=== PATIENT | female | born 1985 | race American Indian/Alaskan Native ===

== ENCOUNTER 2018-03-05 15:56 | Inpatient (IN) | payer MEDICAID, OTHER ==
[2018-03-05] MEDS ORDERED: NACL 0.9% 1000 ML 1,000 ML IV ONE ×2 (20:52→20:59)
[2018-03-05] MEDS ORDERED: PROVENTIL IH ONE ×2 (20:52→23:16)
[2018-03-05] MEDS ORDERED: MOTRIN PO ONE (20:59)
[2018-03-05] MEDS ORDERED: ZOFRAN ODT PO ONE (20:59)
[2018-03-05] MEDS ORDERED: TYLENOL PO ONE (20:59)
--- NOTE | 2018-03-05 21:30 | Emergency Department Report ---
ED General Adult HPI - General Chief complaint: Upper Respiratory Infection Stated complaint: COUGHING/VOMITING Time Seen by Provider: 03/05/18 20:37 Source: patient Mode of arrival: Ambulatory Limitations: No Limitations - History of Present Illness Initial comments: 5 days of nonproductive cough. Afebrile. Having vomiting from her coughing fits. Afebrile. Nonsmoker. No sick contacts. H/o myasthenia gravis, last flared 3 years ago. This doesn't feel like her myasthenia. Has chest pain from coughing so much. - Related Data Allergies Allergy/AdvReac Type Severity Reaction Status Date / Time magnesium Allergy Unknown Verified 03/05/18 16:16 ED Review of Systems ROS: Stated complaint: COUGHING/VOMITING Other details as noted in HPI Comment: All other systems reviewed and negative ENT: denies: throat pain, congestion Respiratory: cough, SOB at rest ED Past Medical Hx - Past Medical History Previous Medical History?: Yes Additional medical history: mystenia gravis - Surgical History Past Surgical History?: Yes Additional Surgical History: thymus gland removal - Social History Smoking Status: Never Smoker ED Physical Exam - General Limitations: No Limitations General appearance: alert, in no apparent distress - Head Head exam: Present: atraumatic, normocephalic - Eye Eye exam: Present: normal appearance - ENT ENT exam: Present: mucous membranes moist - Neck Neck exam: Present: normal inspection - Respiratory Respiratory exam: Present: decreased breath sounds (on the left). Absent: respiratory distress, wheezes, rales, rhonchi - Cardiovascular Cardiovascular Exam: Present: regular rate, normal rhythm, tachycardia. Absent : systolic murmur, diastolic murmur, rubs, gallop - GI/Abdominal GI/Abdominal exam: Present: soft, normal bowel sounds. Absent: distended, tenderness, guarding, rebound - Extremities Exam Extremities exam: Present: normal inspection - Back Exam Back exam: Present: normal inspection - Neurological Exam Neurological exam: Present: alert, oriented X3 - Psychiatric Psychiatric exam: Present: normal affect, normal mood - Skin Skin exam: Present: warm, dry, intact, normal color. Absent: rash ED Course Vital Signs 03/05/18 03/05/18 03/05/18 16:10 20:35 21:04 Temperature 98.1 F Pulse Rate 135 H Pulse Rate [ Bilateral Throughout] Respiratory 16 Rate Respiratory Rate [Bilateral Throughout] Blood Pressure 116/76 103/65 104/75 O2 Sat by Pulse 100 100 100 Oximetry 03/05/18 03/05/18 03/05/18 21:05 21:30 21:44 Temperature Pulse Rate Pulse Rate [ Bilateral Throughout] Respiratory 18 Rate Respiratory Rate [Bilateral Throughout] Blood Pressure 110/82 112/77 O2 Sat by Pulse 100 99 100 Oximetry 03/05/18 03/05/18 03/05/18 21:50 22:00 22:35 Temperature Pulse Rate Pulse Rate [ Bilateral Throughout] Respiratory 18 Rate Respiratory Rate [Bilateral Throughout] Blood Pressure 111/74 111/74 O2 Sat by Pulse 100 100 Oximetry 03/05/18 03/05/18 03/05/18 22:40 22:44 22:50 Temperature Pulse Rate 119 H 118 H 128 H Pulse Rate [ Bilateral Throughout] Respiratory 23 27 H 20 Rate Respiratory Rate [Bilateral Throughout] Blood Pressure 110/79 112/77 106/67 O2 Sat by Pulse 100 99 100 Oximetry 03/05/18 03/05/18 03/05/18 23:00 23:10 23:14 Temperature Pulse Rate 119 H 118 H Pulse Rate [ Bilateral Throughout] Respiratory 18 18 18 Rate Respiratory Rate [Bilateral Throughout] Blood Pressure 114/80 114/80 O2 Sat by Pulse 100 100 Oximetry 03/05/18 03/05/18 03/05/18 23:20 23:24 23:30 Temperature Pulse Rate 116 H 120 H Pulse Rate [ 115 H Bilateral Throughout] Respiratory 19 20 Rate Respiratory 18 Rate [Bilateral Throughout] Blood Pressure 114/80 124/83 O2 Sat by Pulse 100 95 Oximetry 03/05/18 03/05/18 03/06/18 23:35 23:40 00:14 Temperature Pulse Rate 126 H Pulse Rate [ Bilateral Throughout] Respiratory 18 19 18 Rate Respiratory Rate [Bilateral Throughout] Blood Pressure 124/83 O2 Sat by Pulse 100 Oximetry 03/06/18 03/06/18 03/06/18 01:16 01:20 01:30 Temperature Pulse Rate 118 H 109 H Pulse Rate [ Bilateral Throughout] Respiratory 29 H 26 H Rate Respiratory Rate [Bilateral Throughout] Blood Pressure 124/83 124/83 124/83 O2 Sat by Pulse 99 99 98 Oximetry 03/06/18 03/06/18 03/06/18 01:40 01:50 02:00 Temperature Pulse Rate 114 H 112 H 116 H Pulse Rate [ Bilateral Throughout] Respiratory 17 22 21 Rate Respiratory Rate [Bilateral Throughout] Blood Pressure 124/83 124/83 124/83 O2 Sat by Pulse 100 100 100 Oximetry 03/06/18 03/06/18 03/06/18 02:10 02:20 02:40 Temperature Pulse Rate 114 H 110 H 113 H Pulse Rate [ Bilateral Throughout] Respiratory 27 H 15 22 Rate Respiratory Rate [Bilateral Throughout] Blood Pressure 124/83 124/83 124/83 O2 Sat by Pulse 99 100 100 Oximetry 03/06/18 03/06/18 03/06/18 02:50 03:00 03:10 Temperature Pulse Rate 105 H 109 H 105 H Pulse Rate [ Bilateral Throughout] Respiratory 24 15 24 Rate Respiratory Rate [Bilateral Throughout] Blood Pressure 115/81 117/82 117/82 O2 Sat by Pulse 100 100 100 Oximetry 03/06/18 03/06/18 03/06/18 03:20 03:30 03:40 Temperature Pulse Rate 106 H 105 H 104 H Pulse Rate [ Bilateral Throughout] Respiratory 22 23 22 Rate Respiratory Rate [Bilateral Throughout] Blood Pressure 117/82 112/83 116/79 O2 Sat by Pulse 100 100 Oximetry 03/06/18 03/06/18 03/06/18 03:50 04:00 04:05 Temperature 97.6 F 97.5 F L Pulse Rate 102 H 99 H Pulse Rate [ Bilateral Throughout] Respiratory 25 H 20 Rate Respiratory Rate [Bilateral Throughout] Blood Pressure 110/79 110/79 O2 Sat by Pulse 100 100 Oximetry 03/06/18 03/06/18 03/06/18 04:10 04:20 04:35 Temperature 97.5 F L Pulse Rate 100 H 102 H Pulse Rate [ Bilateral Throughout] Respiratory 19 16 Rate Respiratory Rate [Bilateral Throughout] Blood Pressure 110/79 112/84 O2 Sat by Pulse 98 98 Oximetry 03/06/18 05:05 Temperature 97.8 F Pulse Rate Pulse Rate [ Bilateral Throughout] Respiratory Rate Respiratory Rate [Bilateral Throughout] Blood Pressure O2 Sat by Pulse Oximetry - Reevaluation(s) Reevaluation #1: Minimal improvement with breathing treatment. CT C/A/P is concerning for malignancy with pleural effusion and compression atelectasis. Pt will be admitted for further management and work up. 03/06/18 05:51 ED Medical Decision Making - Lab Data Result diagrams: 03/06/18 03:20 03/06/18 03:20 - EKG Data -: EKG Interpreted by Me EKG shows normal: sinus rhythm, axis, intervals, QRS complexes, ST-T waves Rate: tachycardia - EKG Data Interpretation: no acute changes - Radiology Data Radiology results: image reviewed - Medical Decision Making 32 yo female with pmhx of MG, not currently on meds that p/w cough. VS significant for tachycardia of 135. Pt is in no respiratory distress. Normal O2 sat. Diminished breath sounds on the left. CXR shows left pleural effusion w/ ? PTX. Will obtain labs, CT chest. IVF have been started. Pt has been given a breathing treatment to assist with her cough. - Differential Diagnosis copd, asthma, pna, uri, bronchitits, ptx, pe, MG flare Critical care attestation.: If time is entered above; I have spent that time in minutes in the direct care of this critically ill patient, excluding procedure time. ED Disposition Clinical Impression: Leukopenia, Anemia, Abdominal mass Disposition: - OP ADMIT IP TO THIS HOSP Is pt being admited?: Yes Does the pt Need Aspirin: No Condition: Stable
[2018-03-05 21:41] LABS: Hemoglobin 6.2 gm/dl (10.1-14.3); Mean Corpuscular HGB Conc 29 % (30-34); Platelet Count 298 K/mm3 (140-440); Red Cell Distribution Width 19.6 % (13.2-15.2)
[2018-03-05 21:43] LABS: Mean Corpuscular Hemoglobin 19 pg (28-32); Mean Corpuscular Volume 64 fl (79-97)
[2018-03-05 21:58] LABS: Alanine Aminotransferase 25 units/L (7-56); Albumin 3.4 g/dL (3.9-5); BUN/Creatinine Ratio 20; Blood Urea Nitrogen 10 mg/dL (7-17); Calcium 8.8 mg/dL (8.4-10.2); Hemolysis Index 0
[2018-03-05 22:21] LABS: Basophils % (Manual) 0 % (0.0-1.8); Total Cells Counted 100
[2018-03-05 22:22] LABS: Large Platelets Few; Platelet Estimate Consistent w Auto
[2018-03-05 22:24] LABS: Anisocytosis 1+; Giant Platelets Rare; Poikilocytosis 1+
[2018-03-05 22:25] LABS: Hypochromasia 2+
--- NOTE | 2018-03-05 23:08 | Cat Scan Report ---
FINAL REPORT PROCEDURE: CT CHEST W CON TECHNIQUE: Computerized axial tomography of the chest was performed during the IV injection of iodinated nonionic contrast. HISTORY: new left pleural effusion COMPARISON: No prior studies are available for comparison. TECHNICAL QUALITY: Satisfactory. FINDINGS: Heart and pericardium: There is no pericardial effusion or thickening. Thoracic aorta: No aneurysm or dissection. Pulmonary vasculature: Limited evaluation of distal branches. Central branches are patent, with no filling defects seen. Lymph nodes: There is subcarinal soft tissue attenuation, compatible with adenopathy, measuring up to 18 millimeters. Lungs: There is patchy left lung base atelectasis or infiltrate abutting large left pleural effusion. There is tree-in-bud type infiltrate in the right upper lobe. Pleural space: There is a large layering left pleural effusion. Musculoskeletal structures: There has been prior median sternotomy.. Upper abdominal structures: There is a large heterogeneously enhancing mass in the left upper quadrant, elevating the left hemidiaphragm, which is not fully imaged on this exam. The origin of the mass is uncertain, possibly related to an enlarged spleen or other mass. Recommend evaluation with CT abdomen pelvis. There are numerous subcentimeter low-density nodules throughout the liver are as well, which could be related to metastatic disease process. IMPRESSION: Large heterogeneously enhancing mass in the left upper quadrant of the abdomen, not fully imaged; this could be related to an enlarged spleen or other mass. There are also numerous small subcentimeter hepatic nodules, which could be metastatic. Recommend further evaluation with CT abdomen pelvis. Large layering left pleural effusion. There is adjacent left lung base atelectasis or infiltrate. Findings discussed by telephone with Dr. Wheeler at 9:50 p.m. central standard time on 03/05/2018.
--- NOTE | 2018-03-05 23:16 | XRay Report ---
FINAL REPORT PROCEDURE: XR CHEST ROUTINE 2V TECHNIQUE: PA and lateral chest radiographs were obtained. CPT 37970 HISTORY: chest pain COMPARISON: No prior studies are available for comparison. FINDINGS: Heart: Normal. Mediastinum/Vessels: Normal. Lungs/Pleural space: There is an infiltrate/atelectasis and effusion in the left lower lung.. Bony thorax: No acute osseous abnormality. Other: IMPRESSION: There is moderate infiltrate/atelectasis with effusion in the left lower lung..
--- NOTE | 2018-03-06 00:37 | Cat Scan Report ---
FINAL REPORT PROCEDURE: CT ABDOMEN PELVIS W CON TECHNIQUE: Computerized axial tomography of the abdomen and pelvis was performed after the IV injection of iodinated nonionic contrast. HISTORY: abnormal spleen on ct chest COMPARISON: No prior studies are available for comparison. FINDINGS: Visualized lower thorax: No significant abnormality. Liver: Normal size and attenuation. Spleen: There is splenomegaly with diffuse enlargement of the spleen. The differential is extensive including infectious etiologies is well as lymphoma and leukemia.. Gallbladder and biliary system: Normal. Pancreas: Normal. Adrenals: Normal. Kidneys: Normal. GI tract: No obstruction is seen. No ileus or enteritis. The cecum, appendix and colon are normal. Moderate fecal debris in the colon is noted.. Lymph nodes and mesentery: Normal. Vasculature: Normal. Bladder: Normal. Reproductive organs: Normal. Peritoneum: No free fluid. Musculoskeletal structures: No significant abnormality. Other: None. IMPRESSION: There is diffuse enlargement of the spleen. The differential is extensive and includes benign and malignant etiologies including infectious etiologies as well as lymphoma and leukemia.
[2018-03-06] MEDS ORDERED: ROBITUSSIN AC PO ONE (01:52)
[2018-03-06] MEDS ORDERED: NACL 0.9% 1000 ML 1,000 ML IV ONE (01:52)
[2018-03-06] MEDS ORDERED: SODIUM CHLORIDE FLUSH SYRINGE 10 ML IV PRN (02:05)
[2018-03-06] MEDS ORDERED: NACL 0.9% 500 ML 500 ML IV ONE (02:10)
[2018-03-06] MEDS ORDERED: VANCOMYCIN 1,250 MG in NACL 0.9% 250ML 250 ML IV ONE (02:15)
--- NOTE | 2018-03-06 02:21 | History and Physical Report ---
History of Present Illness Date of examination: 03/06/18 History of present illness: 32-year-old woman with a history of myasthenia gravis, no follow-up in the last 4 years comes emergency room with complaints of dry cough 1 week. Also complaining of low back pain on the left e and abdominal pain which he described as a dull sensation, constant, intensity 5 return, no radiation, she cannot identify exacerbating or relieving factors. Complains of nausea and vomiting yesterday. Complains of shortness of breath, feeling dizzy and night sweats, no fever or chills, weight loss, sick contacts. No melena, bloody stool , was transfused blood and 2002 after thymus removal Review of systems Constitutional: no weight loss, chills, fever Ears, eyes, nose, mouth and throat: no nasal congestion, no nasal discharge, no sinus pressure, no vision change, no red eye. Neck: No neck pain or rigidity. Cardiovascular: no chest pain, palpitations Respiratory: no cough, shortness of breath Gastrointestinal: no hematochezia Genitourinary : no frequency , no hematuria Musculoskeletal: no joint swelling or muscle ache Integumentary: no rash, no pruritis Neurological: no parathesias, no numbness, no focal weakness Endocrine: no cold or heat intolerance, no polyuria or polydipsia Hematologic/Lymphatic: no easy bruising, no easy bleeding, no gland swelling Allergic/Immunologic: no urticaria, no angioedema. PAST MEDICAL HISTORY: myasthenia gravis PAST SURGICAL HISTORY: Thymus removal SOCIAL HISTORY: No alcohol, no drugs, tobacco FAMILY HISTORY: Hypertension Medications and Allergies Allergies Allergy/AdvReac Type Severity Reaction Status Date / Time magnesium Allergy Unknown Verified 03/05/18 16:16 Home Medications Medication Instructions Recorded Confirmed Last Taken Type No Known Home Medications [No 03/06/18 03/06/18 Unknown History Reported Home Medications] Active Meds: Active Medications Acetaminophen (Tylenol) 650 mg PO Q4H PRN PRN Reason: Pain MILD(1-3)/Fever >100.5/HERBERT Sodium Chloride (Nacl 0.9% 1000 Ml) 1,000 mls @ 999 mls/hr IV BOLUS ONE Stop: 03/06/18 02:52 Piperacillin Sod/Tazobactam Sod (Zosyn/Ns 4.5gm/100ml) 4.5 gm in 100 mls @ 200 mls/hr IV Q8HR THAI; Protocol Vancomycin HCl 1,250 mg/ (Sodium Chloride) 275 mls @ 166.667 mls/hr IV ONCE ONE Stop: 03/06/18 03:53 Ondansetron HCl (Zofran) 4 mg IV Q4H PRN PRN Reason: Nausea And Vomiting Oxycodone/Acetaminophen (Percocet 5/325) 1 tab PO Q6H PRN PRN Reason: Pain, Moderate (4-6) Sodium Chloride (Sodium Chloride Flush Syringe 10 Ml) 10 ml IV BID THAI Sodium Chloride (Sodium Chloride Flush Syringe 10 Ml) 10 ml IV PRN PRN PRN Reason: LINE FLUSH Vancomycin HCl (Vancomycin Pharmacy To Dose) 1 each IV PKCONSULT THAI Exam - Physical Exam Narrative exam: Gen. appearance: Patient lying in bed, no apparent distress HEENT: Normocephalic, atraumatic, pupils equally round and reactive to light, extraocular movement intact, and no sclericterus,. No JVD or thyromegaly or nodule,neck supple, no carotid bruit ,mucous membranes moist, no exudate or erythema Heart: S1, S2, regular rate and rhythm Lungs: Decrease breath sounds at bases bilaterally, breathing comfortable Abdomen: Positive bowel sounds, non-tender, splenomegaly ,nondistended, no organomegaly Extremity:no edema cyanosis, clubbing Skin: no rash, dry, warm Neuro: Oriented 3, cranial nerves II-12 intact, speech is fluent, motor and sensory intact Rectal: heme negative, brown stool - Constitutional Vitals: Temp Pulse Resp BP Pulse Ox 98.1 F 115 H 18 112/77 99 03/05/18 16:10 03/05/18 23:24 03/05/18 23:24 03/05/18 22:44 03/05/18 22:44 Results - Labs CBC & Chem 7: 03/14/18 09:02 03/12/18 06:28 Labs: Abnormal lab results 03/05/18 03/05/18 03/05/18 Range/Units 21:31 21:31 22:31 WBC 1.9 L* (4.5-11.0) K/mm3 RBC 3.30 L (3.65-5.03) M/mm3 Hgb 6.2 L (10.1-14.3) gm/dl Hct 21.0 L (30.3-42.9) % MCV 64 L (79-97) fl MCH 19 L (28-32) pg MCHC 29 L (30-34) % RDW 19.6 H (13.2-15.2) % Seg Neuts % (Manual) 74.0 H (40.0-70.0) % Seg Neutrophils # Man 1.4 L (1.8-7.7) K/mm3 Lymphocytes # (Manual) 0.4 L (1.2-5.4) K/mm3 Sodium 133 L (137-145) mmol/L Chloride 96.2 L (98-107) mmol/L Creatinine 0.5 L (0.7-1.2) mg/dL Glucose 108 H (65-100) mg/dL AST 54 H (5-40) units/L Alkaline Phosphatase 396 H (35-129) units/L Albumin 3.4 L (3.9-5) g/dL Crossmatch See Detail - Imaging and Cardiology CT scan - abdomen: report reviewed CT scan - chest: report reviewed CT scan - pelvis: report reviewed Assessment and Plan Assessment Splenomegaly with liver nodules most likely lymphoma Anemia/leukopenia secondary to malignant process Large pleural effusion Pneumonia Myasthenia gravis Plan Admit to medicine Start IV Zosyn, vancomycin, follow cultures Transfuse blood, check iron profile, LDH, uric acid consult oncology DVT prophylaxis
[2018-03-06] MEDS ORDERED: VANCOMYCIN/NS 1 GM/250 ML 1 GM/250 ML BAG IV SCH (03:00)
[2018-03-06] MEDS ORDERED: VANCOMYCIN PHARMACY TO DOSE IV SCH (03:00)
[2018-03-06 03:48] LABS: Mean Corpuscular HGB Conc 27 % (30-34); Platelet Count 262 K/mm3 (140-440); Red Blood Count 3.08 M/mm3 (3.65-5.03); Red Cell Distribution Width 19.8 % (13.2-15.2)
[2018-03-06 03:59] LABS: Hematocrit 20.5 % (30.3-42.9); Mean Corpuscular Hemoglobin 18 pg (28-32); Mean Corpuscular Volume 66 fl (79-97)
[2018-03-06 04:01] LABS: Hemoglobin 5.5 gm/dl (10.1-14.3)
[2018-03-06 04:09] LABS: BUN/Creatinine Ratio 14; Blood Urea Nitrogen 10 mg/dL (7-17); Calcium 7.7 mg/dL (8.4-10.2); Hemolysis Index 0
[2018-03-06 05:44] LABS: Anisocytosis 1+; Band Neutrophils # (Manual) 0.1 K/mm3; Basophils % (Manual) 0 % (0.0-1.8); Hypochromasia 3+; Total Cells Counted 100
[2018-03-06 05:45] LABS: Large Platelets Few; Ovalocytes 1+; Poikilocytosis 1+
[2018-03-06] MEDS: ZOSYN/NS 4.5GM/100ML 4.5 GM/100 ML VIAL IV SCH ×3 (06:33→21:53)
--- NOTE | 2018-03-06 09:24 | Progress Note ---
Assessment and Plan Assessment and plan: Patient is a 32 yo man with a history of myasthenia gravis who pw cough, LBP, sob, dizziness, night sweats and abd pains. * CT chest with IV contrast IMPRESSION: Large heterogeneously enhancing mass in the left upper quadrant of the abdomen, not fully imaged; this could be related to an enlarged spleen or other mass. There are also numerous small subcentimeter hepatic nodules, which could be metastatic. Recommend further evaluation with CT abdomen pelvis. Large layering left pleural effusion. There is adjacent left lung base atelectasis or infiltrate. Findings discussed by telephone with Dr. Wheeler at 9:50 p.m. central standard time on 03/05/2018. * CT abd/pelvis with contrast IMPRESSION: There is diffuse enlargement of the spleen. The differential is extensive and includes benign and malignant etiologies including infectious etiologies as well as lymphoma and leukemia. * 2v CXR IMPRESSION: There is moderate infiltrate/atelectasis with effusion in the left lower lung.. -Splenomegaly with liver nodules most likely lymphoma -Anemia/leukopenia secondary to malignant process -Large pleural effusion -Pneumonia -Myasthenia gravis Plan Admit to medicine Start IV Zosyn, vancomycin, follow cultures Transfuse blood, check iron profile, LDH, uric acid consult oncology DVT prophylaxis need liver bx, get thoracentesis, need lymph node CCT 32 minutes History Interval history: Patient was seen and examined. Follow-up on current diagnosis abd pains. Overnight uneventful. Patient denies any chest pain, shortness breath, or severe headaches. Imaging, nursing note, chart, labs and old chart reviewed. Discussed with patient. Hospitalist Physical - Physical exam Narrative exam: GEN: WDWN, NAD, Awake, Alert, Orientated HEENT: NCAT, EOMI, PERRL, OP Clear NECK: supple, no adenopathy, no thyromegaly, no JVD CVS/HEART: regular tachycardia, normal S1S2, pulses present bilaterally CHEST/LUNGS: diminished bs bilateral, Symmetrical chest expansion, good air entry bilaterally GI/Abdomen: soft, NTND, good bowel sounds, no guarding or rebound /Bladder: no suprapubic tenderness, no CVA or paraspinal tenderness EXT/Skin: no c/c/e, no obvious rash MSK: FROM x 4 Neuro: CN 2-12 grossly intact, no new focal deficits Psych: calm - Constitutional Vitals: Temp Pulse Resp BP Pulse Ox 97.4 F L 102 H 16 112/84 98 03/06/18 07:00 03/06/18 04:20 03/06/18 04:20 03/06/18 04:20 03/06/18 04:20 Results - Labs CBC & Chem 7: 03/06/18 12:27 03/06/18 03:20 Labs: Laboratory Last Values WBC 1.4 K/mm3 (4.5-11.0) L* 03/06/18 03:20 RBC 3.08 M/mm3 (3.65-5.03) L 03/06/18 03:20 Hgb 5.5 gm/dl (10.1-14.3) L* 03/06/18 03:20 Hct 20.5 % (30.3-42.9) L 03/06/18 03:20 MCV 66 fl (79-97) L 03/06/18 03:20 MCH 18 pg (28-32) L 03/06/18 03:20 MCHC 27 % (30-34) L 03/06/18 03:20 RDW 19.8 % (13.2-15.2) H 03/06/18 03:20 Plt Count 262 K/mm3 (140-440) 03/06/18 03:20 Add Manual Diff Complete 03/06/18 03:20 Total Counted 100 03/06/18 03:20 Seg Neuts % (Manual) 62.0 % (40.0-70.0) 03/06/18 03:20 Band Neutrophils % 5.0 % 03/06/18 03:20 Lymphocytes % (Manual) 24.0 % (13.4-35.0) 03/06/18 03:20 Reactive Lymphs % (Man) 0 % 03/06/18 03:20 Monocytes % (Manual) 7.0 % (0.0-7.3) 03/06/18 03:20 Eosinophils % (Manual) 2.0 % (0.0-4.3) 03/06/18 03:20 Basophils % (Manual) 0 % (0.0-1.8) 03/06/18 03:20 Metamyelocytes % 0 % 03/06/18 03:20 Myelocytes % 0 % 03/06/18 03:20 Promyelocytes % 0 % 03/06/18 03:20 Blast Cells % 0 % 03/06/18 03:20 Nucleated RBC % Not Reportable 03/06/18 03:20 Seg Neutrophils # Man 0.9 K/mm3 (1.8-7.7) L 03/06/18 03:20 Band Neutrophils # 0.1 K/mm3 03/06/18 03:20 Lymphocytes # (Manual) 0.3 K/mm3 (1.2-5.4) L 03/06/18 03:20 Abs React Lymphs (Man) 0.0 K/mm3 03/06/18 03:20 Monocytes # (Manual) 0.1 K/mm3 (0.0-0.8) 03/06/18 03:20 Eosinophils # (Manual) 0.0 K/mm3 (0.0-0.4) 03/06/18 03:20 Basophils # (Manual) 0.0 K/mm3 (0.0-0.1) 03/06/18 03:20 Metamyelocytes # 0.0 K/mm3 03/06/18 03:20 Myelocytes # 0.0 K/mm3 03/06/18 03:20 Promyelocytes # 0.0 K/mm3 03/06/18 03:20 Blast Cells # 0.0 K/mm3 03/06/18 03:20 WBC Morphology Not Reportable 03/06/18 03:20 Hypersegmented Neuts Not Reportable 03/06/18 03:20 Hyposegmented Neuts Not Reportable 03/06/18 03:20 Hypogranular Neuts Not Reportable 03/06/18 03:20 Smudge Cells Not Reportable 03/06/18 03:20 Toxic Granulation Not Reportable 03/06/18 03:20 Toxic Vacuolation Not Reportable 03/06/18 03:20 Dohle Bodies Not Reportable 03/06/18 03:20 Pelger-Huet Anomaly Not Reportable 03/06/18 03:20 Shonna Rods Not Reportable 03/06/18 03:20 Platelet Estimate Appears normal 03/06/18 03:20 Clumped Platelets Not Reportable 03/06/18 03:20 Plt Clumps, EDTA Not Reportable 03/06/18 03:20 Large Platelets Few 03/06/18 03:20 Giant Platelets Not Reportable 03/06/18 03:20 Platelet Satelliting Not Reportable 03/06/18 03:20 Plt Morphology Comment Not Reportable 03/06/18 03:20 RBC Morphology Not Reportable 03/06/18 03:20 Dimorphic RBCs Not Reportable 03/06/18 03:20 Polychromasia Not Reportable 03/06/18 03:20 Hypochromasia 3+ 03/06/18 03:20 Poikilocytosis 1+ 03/06/18 03:20 Anisocytosis 1+ 03/06/18 03:20 Microcytosis 1+ 03/06/18 03:20 Macrocytosis Not Reportable 03/06/18 03:20 Spherocytes Not Reportable 03/06/18 03:20 Pappenheimer Bodies Not Reportable 03/06/18 03:20 Sickle Cells Not Reportable 03/06/18 03:20 Target Cells Not Reportable 03/06/18 03:20 Tear Drop Cells Not Reportable 03/06/18 03:20 Ovalocytes 1+ 03/06/18 03:20 Helmet Cells Not Reportable 03/06/18 03:20 [place] Bodies Not Reportable 03/06/18 03:20 [place] Rings Not Reportable 03/06/18 03:20 Leon Cells Not Reportable 03/06/18 03:20 Bite Cells Not Reportable 03/06/18 03:20 Crenated Cell Not Reportable 03/06/18 03:20 Elliptocytes 1+ 03/06/18 03:20 Acanthocytes (Spur) Not Reportable 03/06/18 03:20 Rouleaux Not Reportable 03/06/18 03:20 Hemoglobin C Crystals Not Reportable 03/06/18 03:20 Schistocytes Not Reportable 03/06/18 03:20 Malaria parasites Not Reportable 03/06/18 03:20 Antonino Bodies Not Reportable 03/06/18 03:20 Hem Pathologist Commnt No 03/06/18 03:20 Sodium 137 mmol/L (137-145) 03/06/18 03:20 Potassium 4.0 mmol/L (3.6-5.0) 03/06/18 03:20 Chloride 104.0 mmol/L (98-107) 03/06/18 03:20 Carbon Dioxide 21 mmol/L (22-30) L 03/06/18 03:20 Anion Gap 16 mmol/L 03/06/18 03:20 BUN 10 mg/dL (7-17) 03/06/18 03:20 Creatinine 0.7 mg/dL (0.7-1.2) 03/06/18 03:20 Estimated GFR > 60 ml/min 03/06/18 03:20 BUN/Creatinine Ratio 14 % 03/06/18 03:20 Glucose 88 mg/dL (65-100) 03/06/18 03:20 Calcium 7.7 mg/dL (8.4-10.2) L 03/06/18 03:20 Total Bilirubin 0.70 mg/dL (0.1-1.2) 03/05/18 21:31 AST 54 units/L (5-40) H 03/05/18 21:31 ALT 25 units/L (7-56) 03/05/18 21:31 Alkaline Phosphatase 396 units/L (35-129) H 03/05/18 21:31 Total Protein 7.9 g/dL (6.3-8.2) 03/05/18 21:31 Albumin 3.4 g/dL (3.9-5) L 03/05/18 21:31 Albumin/Globulin Ratio 0.8 % 03/05/18 21:31 Blood Type B POSITIVE 03/05/18 22:31 Antibody Screen Negative 03/05/18 22:31 Crossmatch See Detail 03/05/18 22:31
[2018-03-06] MEDS: VANCOMYCIN/NS 1 GM/250 ML 1 GM/250 ML BAG IV SCH (10:03)
[2018-03-06 12:47] LABS: Mean Corpuscular HGB Conc 28 % (30-34); Platelet Count 265 K/mm3 (140-440); Red Blood Count 3.69 M/mm3 (3.65-5.03)
[2018-03-06 12:53] LABS: Hematocrit 25.3 % (30.3-42.9); Hemoglobin 7.2 gm/dl (10.1-14.3); Mean Corpuscular Hemoglobin 20 pg (28-32); Mean Corpuscular Volume 69 fl (79-97); Red Cell Distribution Width 22.1 % (13.2-15.2)
[2018-03-06 13:29] LABS: Total Cells Counted 100
[2018-03-06 13:30] LABS: Anisocytosis 1+; Hypochromasia 2+; Ovalocytes 1+; Platelet Estimate Consistent w Auto; Poikilocytosis 1+; Tear Drop Cells Rare
--- NOTE | 2018-03-06 14:25 | Hem/Onc Consultation ---
History of Present Illness - Reason for Consult Consult date: 03/06/18 Requesting physician: NICKOLAS PELAYO - History of Present Illness 32 year old lady seen with significant other. States has 1 week history of back pain. Denies any other smptoms. States has low apetite for 6 months and weight loss. Conesus abdomen was enlarging. Past History Past Medical History: No medical history (myasthenia gravin diagnosed in 2003 off treatment for a while) Medications and Allergies Allergies Allergy/AdvReac Type Severity Reaction Status Date / Time magnesium Allergy Unknown Verified 03/05/18 16:16 Active Meds: Active Medications Acetaminophen (Tylenol) 650 mg PO Q4H PRN PRN Reason: Pain MILD(1-3)/Fever >100.5/HERBERT Piperacillin Sod/Tazobactam Sod (Zosyn/Ns 4.5gm/100ml) 4.5 gm in 100 mls @ 200 mls/hr IV Q8HR THAI; Protocol Last Admin: 03/06/18 06:33 Dose: Not Given Vancomycin HCl (Vancomycin/Ns 1 Gm/250 Ml) 1 gm in 250 mls @ 166.667 mls/hr IV Q8H THAI Last Admin: 03/06/18 10:03 Dose: 166.667 mls/hr Ondansetron HCl (Zofran) 4 mg IV Q4H PRN PRN Reason: Nausea And Vomiting Oxycodone/Acetaminophen (Percocet 5/325) 1 tab PO Q6H PRN PRN Reason: Pain, Moderate (4-6) Sodium Chloride (Sodium Chloride Flush Syringe 10 Ml) 10 ml IV BID THAI Sodium Chloride (Sodium Chloride Flush Syringe 10 Ml) 10 ml IV PRN PRN PRN Reason: LINE FLUSH Vancomycin HCl (Vancomycin Pharmacy To Dose) 1 each IV PKCONSULT THAI Review of Systems All systems: negative (weakness, pain) Exam - Constitutional Vitals: Last Vital Signs Temp 98.6 F 03/06/18 11:58 Pulse 102 H 03/06/18 04:20 Resp 16 03/06/18 04:20 BP 112/84 03/06/18 04:20 Pulse Ox 98 03/06/18 04:20 Pain Intensity (0-10): 5/10 General appearance: mild distress Performance status: 1-light work, ambulatory - EENT Eyes: PERRL ENT: hearing intact Lymph node exam: negative cervical - Neck Neck: supple, normal ROM - Respiratory Respiratory effort: Positive: normal Respiratory: left: diminished, bilateral: CTA - Cardiovascular Rhythm: regular Heart Sounds: Present: S1 & S2 Extremities: No edema - Gastrointestinal General gastrointestinal: Present: splenomegaly - Integumentary Integumentary: clear - Musculoskeletal Musculoskeletal: strength equal bilaterally - Neurologic Neurologic: CNII-XII intact - Psychiatric Psychiatric: appropriate mood/affect - Allied health notes Allied health notes reviewed: nursing Results - Labs lab Results: Laboratory Results - last 24 hr 03/05/18 03/05/18 03/05/18 21:31 21:31 22:31 WBC 1.9 L* RBC 3.30 L Hgb 6.2 L Hct 21.0 L MCV 64 L MCH 19 L MCHC 29 L RDW 19.6 H Plt Count 298 Add Manual Diff Complete Total Counted 100 Seg Neuts % (Manual) 74.0 H Band Neutrophils % 0 Lymphocytes % (Manual) 21.0 Reactive Lymphs % (Man) 0 Monocytes % (Manual) 4.0 Eosinophils % (Manual) 1.0 Basophils % (Manual) 0 Metamyelocytes % 0 Myelocytes % 0 Promyelocytes % 0 Blast Cells % 0 Nucleated RBC % Not Reportable Seg Neutrophils # Man 1.4 L Band Neutrophils # 0.0 Lymphocytes # (Manual) 0.4 L Abs React Lymphs (Man) 0.0 Monocytes # (Manual) 0.1 Eosinophils # (Manual) 0.0 Basophils # (Manual) 0.0 Metamyelocytes # 0.0 Myelocytes # 0.0 Promyelocytes # 0.0 Blast Cells # 0.0 WBC Morphology Not Reportable Hypersegmented Neuts Not Reportable Hyposegmented Neuts Not Reportable Hypogranular Neuts Not Reportable Smudge Cells Not Reportable Toxic Granulation Not Reportable Toxic Vacuolation Not Reportable Dohle Bodies Not Reportable Pelger-Huet Anomaly Not Reportable Shonna Rods Not Reportable Platelet Estimate Consistent w auto Clumped Platelets Not Reportable Plt Clumps, EDTA Not Reportable Large Platelets Few Giant Platelets Rare Platelet Satelliting Not Reportable Plt Morphology Comment Not Reportable RBC Morphology Not Reportable Dimorphic RBCs Not Reportable Polychromasia Not Reportable Hypochromasia 2+ Poikilocytosis 1+ Anisocytosis 1+ Microcytosis 2+ Macrocytosis Not Reportable Spherocytes Not Reportable Pappenheimer Bodies Not Reportable Sickle Cells Not Reportable Target Cells Not Reportable Tear Drop Cells Not Reportable Ovalocytes Not Reportable Helmet Cells Not Reportable Mandujano-Stephan Bodies Not Reportable [place] Rings Not Reportable [place] Cells Not Reportable Bite Cells Not Reportable Crenated Cell Not Reportable Elliptocytes Not Reportable Acanthocytes (Spur) Not Reportable Rouleaux Not Reportable Hemoglobin C Crystals Not Reportable Schistocytes Not Reportable Malaria parasites Not Reportable Antonino Bodies Not Reportable Hem Pathologist Commnt No Sodium 133 L Potassium 4.5 Chloride 96.2 L Carbon Dioxide 24 Anion Gap 17 BUN 10 Creatinine 0.5 L Estimated GFR > 60 BUN/Creatinine Ratio 20 Glucose 108 H Calcium 8.8 Total Bilirubin 0.70 AST 54 H ALT 25 Alkaline Phosphatase 396 H Total Protein 7.9 Albumin 3.4 L Albumin/Globulin Ratio 0.8 Blood Type B POSITIVE Antibody Screen Negative Crossmatch See Detail 03/06/18 03/06/18 03/06/18 03:20 03:20 12:27 WBC 1.4 L* 1.6 L* RBC 3.08 L 3.69 Hgb 5.5 L* 7.2 L Hct 20.5 L 25.3 L MCV 66 L 69 L MCH 18 L 20 L MCHC 27 L 28 L RDW 19.8 H 22.1 H Plt Count 262 265 Add Manual Diff Complete Complete Total Counted 100 100 Seg Neuts % (Manual) 62.0 79.0 H Band Neutrophils % 5.0 0 Lymphocytes % (Manual) 24.0 11.0 L Reactive Lymphs % (Man) 0 0 Monocytes % (Manual) 7.0 6.0 Eosinophils % (Manual) 2.0 2.0 Basophils % (Manual) 0 2.0 H Metamyelocytes % 0 0 Myelocytes % 0 0 Promyelocytes % 0 0 Blast Cells % 0 0 Nucleated RBC % Not Reportable Not Reportable Seg Neutrophils # Man 0.9 L 1.3 L Band Neutrophils # 0.1 0.0 Lymphocytes # (Manual) 0.3 L 0.2 L Abs React Lymphs (Man) 0.0 0.0 Monocytes # (Manual) 0.1 0.1 Eosinophils # (Manual) 0.0 0.0 Basophils # (Manual) 0.0 0.0 Metamyelocytes # 0.0 0.0 Myelocytes # 0.0 0.0 Promyelocytes # 0.0 0.0 Blast Cells # 0.0 0.0 WBC Morphology Not Reportable Not Reportable Hypersegmented Neuts Not Reportable Not Reportable Hyposegmented Neuts Not Reportable Not Reportable Hypogranular Neuts Not Reportable Not Reportable Smudge Cells Not Reportable Not Reportable Toxic Granulation Not Reportable Not Reportable Toxic Vacuolation Not Reportable Not Reportable Dohle Bodies Not Reportable Not Reportable Pelger-Huet Anomaly Not Reportable Not Reportable Shonna Rods Not Reportable Not Reportable Platelet Estimate Appears normal Consistent w auto Clumped Platelets Not Reportable Not Reportable Plt Clumps, EDTA Not Reportable Not Reportable Large Platelets Few Not Reportable Giant Platelets Not Reportable Not Reportable Platelet Satelliting Not Reportable Not Reportable Plt Morphology Comment Not Reportable Not Reportable RBC Morphology Not Reportable Not Reportable Dimorphic RBCs Not Reportable Not Reportable Polychromasia Not Reportable Not Reportable Hypochromasia 3+ 2+ Poikilocytosis 1+ 1+ Anisocytosis 1+ 1+ Microcytosis 1+ 1+ Macrocytosis Not Reportable Not Reportable Spherocytes Not Reportable Not Reportable Pappenheimer Bodies Not Reportable Not Reportable Sickle Cells Not Reportable Not Reportable Target Cells Not Reportable Not Reportable Tear Drop Cells Not Reportable Rare Ovalocytes 1+ 1+ Helmet Cells Not Reportable Not Reportable Mandujano-Stephan Bodies Not Reportable Not Reportable [place] Rings Not Reportable Not Reportable Leon Cells Not Reportable Not Reportable Bite Cells Not Reportable Not Reportable Crenated Cell Not Reportable Not Reportable Elliptocytes 1+ 1+ Acanthocytes (Spur) Not Reportable Not Reportable Rouleaux Not Reportable Not Reportable Hemoglobin C Crystals Not Reportable Not Reportable Schistocytes Not Reportable Not Reportable Malaria parasites Not Reportable Not Reportable Antonino Bodies Not Reportable Not Reportable Hem Pathologist Commnt No No Sodium 137 Potassium 4.0 Chloride 104.0 Carbon Dioxide 21 L Anion Gap 16 BUN 10 Creatinine 0.7 Estimated GFR > 60 BUN/Creatinine Ratio 14 Glucose 88 Calcium 7.7 L Total Bilirubin AST ALT Alkaline Phosphatase Total Protein Albumin Albumin/Globulin Ratio Blood Type Antibody Screen Crossmatch - Imaging and cardiology CT scan - abdomen: report reviewed, image reviewed CT scan - chest: report reviewed, image reviewed Assessment and Plan - Patient Problems (1) Abdominal mass Current Visit: Yes Status: Acute Plan to address problem: Spent one hour with patient. Discussed with Dr Barth Radiology and Dr Chaudhari IR. There is evidence for ann hepatis, celiac and retroperitoneal lymph nodes and massive splenomegaly. Also effusion. Will order thoracentesis with cytology, bone marrow aspiration biopsy. D/w Dr Chaudhari. Plan is liver biopsy.
[2018-03-06] MEDS: ROBITUSSIN AC PO PRN ×2 (14:35→20:41)
--- NOTE | 2018-03-06 14:40 | Event Note ---
Date: 03/06/[address] scan demonstrating hepatosplenomegaly with retroperitoneal lymphadenopathy and large left pleural effusion. I'll make patient nothing by mouth for Friday for CT-guided liver biopsy.
[2018-03-06 15:46] LABS: INR 1.19 (0.87-1.13)
[2018-03-06 15:56] LABS: % Iron Saturation 6.29 %
[2018-03-06] MEDS: PERCOCET 5/325 PO PRN (20:41)
[2018-03-06] MEDS: SODIUM CHLORIDE FLUSH SYRINGE 10 ML IV SCH (21:59)
[2018-03-07] MEDS: VANCOMYCIN/NS 1 GM/250 ML 1 GM/250 ML BAG IV SCH ×4 (02:26→17:48)
[2018-03-07] MEDS: ROBITUSSIN AC PO PRN ×2 (02:35→12:48)
[2018-03-07] MEDS: ZOSYN/NS 4.5GM/100ML 4.5 GM/100 ML VIAL IV SCH ×3 (05:51→22:04)
[2018-03-07] MEDS: SODIUM CHLORIDE FLUSH SYRINGE 10 ML IV SCH ×2 (11:56→23:26)
--- NOTE | 2018-03-07 13:11 | Progress Note ---
Assessment and Plan Assessment and plan: Patient is a 32 yo woman with a history of myasthenia gravis who pw cough, LBP, sob, dizziness, night sweats and abd pains. * CT chest with IV contrast IMPRESSION: Large heterogeneously enhancing mass in the left upper quadrant of the abdomen, not fully imaged; this could be related to an enlarged spleen or other mass. There are also numerous small subcentimeter hepatic nodules, which could be metastatic. Recommend further evaluation with CT abdomen pelvis. Large layering left pleural effusion. There is adjacent left lung base atelectasis or infiltrate. Findings discussed by telephone with Dr. Wheeler at 9:50 p.m. central standard time on 03/05/2018. * CT abd/pelvis with contrast IMPRESSION: There is diffuse enlargement of the spleen. The differential is extensive and includes benign and malignant etiologies including infectious etiologies as well as lymphoma and leukemia. * 2v CXR IMPRESSION: There is moderate infiltrate/atelectasis with effusion in the left lower lung.. -Abdominal pains due to Splenomegaly with liver nodules most likely lymphoma ( sterility with treatment of Lymphoma discussed): bx pending, percocet helps -Anemia/leukopenia suspected due to malignant process: Hematology/Oncologist following, monitor cbc closely, s/p 1 unit of prbc -Large pleural effusion: thoracentesis ordered for Friday -Pneumonia, aspiration type: continue iv vancomycin, and iv zosyn -Myasthenia gravis by history: check free T4 and total T3 with TSH -DVT prophylaxis: scd only due to anemia need liver bx, get thoracentesis, need lymph node, will be done on Friday History Interval history: Patient was seen and examined. Follow-up on current diagnosis abd pains. Overnight uneventful. Patient denies any chest pain, shortness breath, or severe headaches. Imaging, nursing note, chart, labs and old chart reviewed. Discussed with patient. Hospitalist Physical - Physical exam Narrative exam: GEN: thin, NAD, Awake, Alert, Orientated HEENT: NCAT, EOMI, PERRL, OP Clear NECK: supple, no adenopathy, no thyromegaly, no JVD CVS/HEART: regular tachycardia, normal S1S2, pulses present bilaterally CHEST/LUNGS: diminished bs bilateral, Symmetrical chest expansion, good air entry bilaterally GI/Abdomen: distended, hsm, diffuse tendernes good bowel sounds, no guarding or rebound /Bladder: no suprapubic tenderness, no CVA or paraspinal tenderness EXT/Skin: no c/c/e, no obvious rash MSK: FROM x 4 Neuro: CN 2-12 grossly intact, no new focal deficits Psych: calm - Constitutional Vitals: Temp Pulse Resp BP Pulse Ox 97.8 F 120 H 20 126/88 97 03/07/18 04:00 03/07/18 10:00 03/07/18 04:00 03/07/18 04:00 03/07/18 08:16 Results - Labs CBC & Chem 7: 03/06/18 12:27 03/06/18 03:20 Labs: Laboratory Last Values WBC 1.6 K/mm3 (4.5-11.0) L* 03/06/18 12:27 RBC 3.69 M/mm3 (3.65-5.03) 03/06/18 12:27 Hgb 7.2 gm/dl (10.1-14.3) L 03/06/18 12:27 Hct 25.3 % (30.3-42.9) L 03/06/18 12:27 MCV 69 fl (79-97) L 03/06/18 12:27 MCH 20 pg (28-32) L 03/06/18 12:27 MCHC 28 % (30-34) L 03/06/18 12:27 RDW 22.1 % (13.2-15.2) H 03/06/18 12:27 Plt Count 265 K/mm3 (140-440) 03/06/18 12:27 Add Manual Diff Complete 03/06/18 12:27 Total Counted 100 03/06/18 12:27 Seg Neuts % (Manual) 79.0 % (40.0-70.0) H 03/06/18 12:27 Band Neutrophils % 0 % 03/06/18 12:27 Lymphocytes % (Manual) 11.0 % (13.4-35.0) L 03/06/18 12:27 Reactive Lymphs % (Man) 0 % 03/06/18 12:27 Monocytes % (Manual) 6.0 % (0.0-7.3) 03/06/18 12:27 Eosinophils % (Manual) 2.0 % (0.0-4.3) 03/06/18 12:27 Basophils % (Manual) 2.0 % (0.0-1.8) H 03/06/18 12:27 Metamyelocytes % 0 % 03/06/18 12:27 Myelocytes % 0 % 03/06/18 12:27 Promyelocytes % 0 % 03/06/18 12:27 Blast Cells % 0 % 03/06/18 12:27 Nucleated RBC % Not Reportable 03/06/18 12:27 Seg Neutrophils # Man 1.3 K/mm3 (1.8-7.7) L 03/06/18 12:27 Band Neutrophils # 0.0 K/mm3 03/06/18 12:27 Lymphocytes # (Manual) 0.2 K/mm3 (1.2-5.4) L 03/06/18 12:27 Abs React Lymphs (Man) 0.0 K/mm3 03/06/18 12:27 Monocytes # (Manual) 0.1 K/mm3 (0.0-0.8) 03/06/18 12:27 Eosinophils # (Manual) 0.0 K/mm3 (0.0-0.4) 03/06/18 12:27 Basophils # (Manual) 0.0 K/mm3 (0.0-0.1) 03/06/18 12:27 Metamyelocytes # 0.0 K/mm3 03/06/18 12:27 Myelocytes # 0.0 K/mm3 03/06/18 12:27 Promyelocytes # 0.0 K/mm3 03/06/18 12:27 Blast Cells # 0.0 K/mm3 03/06/18 12:27 WBC Morphology Not Reportable 03/06/18 12:27 Hypersegmented Neuts Not Reportable 03/06/18 12:27 Hyposegmented Neuts Not Reportable 03/06/18 12:27 Hypogranular Neuts Not Reportable 03/06/18 12:27 Smudge Cells Not Reportable 03/06/18 12:27 Toxic Granulation Not Reportable 03/06/18 12:27 Toxic Vacuolation Not Reportable 03/06/18 12:27 Dohle Bodies Not Reportable 03/06/18 12:27 Pelger-Huet Anomaly Not Reportable 03/06/18 12:27 Shonna Rods Not Reportable 03/06/18 12:27 Platelet Estimate Consistent w auto 03/06/18 12:27 Clumped Platelets Not Reportable 03/06/18 12:27 Plt Clumps, EDTA Not Reportable 03/06/18 12:27 Large Platelets Not Reportable 03/06/18 12:27 Giant Platelets Not Reportable 03/06/18 12:27 Platelet Satelliting Not Reportable 03/06/18 12:27 Plt Morphology Comment Not Reportable 03/06/18 12:27 RBC Morphology Not Reportable 03/06/18 12:27 Dimorphic RBCs Not Reportable 03/06/18 12:27 Polychromasia Not Reportable 03/06/18 12:27 Hypochromasia 2+ 03/06/18 12:27 Poikilocytosis 1+ 03/06/18 12:27 Anisocytosis 1+ 03/06/18 12:27 Microcytosis 1+ 03/06/18 12:27 Macrocytosis Not Reportable 03/06/18 12:27 Spherocytes Not Reportable 03/06/18 12:27 Pappenheimer Bodies Not Reportable 03/06/18 12:27 Sickle Cells Not Reportable 03/06/18 12:27 Target Cells Not Reportable 03/06/18 12:27 Tear Drop Cells Rare 03/06/18 12:27 Ovalocytes 1+ 03/06/18 12:27 Helmet Cells Not Reportable 03/06/18 12:27 Mandujano-[place] Bodies Not Reportable 03/06/18 12:27 [place] Rings Not Reportable 03/06/18 12:27 Leon Cells Not Reportable 03/06/18 12:27 Bite Cells Not Reportable 03/06/18 12:27 Crenated Cell Not Reportable 03/06/18 12:27 Elliptocytes 1+ 03/06/18 12:27 Acanthocytes (Spur) Not Reportable 03/06/18 12:27 Rouleaux Not Reportable 03/06/18 12:27 Hemoglobin C Crystals Not Reportable 03/06/18 12:27 Schistocytes Not Reportable 03/06/18 12:27 Malaria parasites Not Reportable 03/06/18 12:27 Percent Retic 1.71 % (0.78-2.58) 03/06/18 15:20 Antonino Bodies Not Reportable 03/06/18 12:27 Hem Pathologist Commnt No 03/06/18 12:27 PT 15.8 Sec. (12.2-14.9) H 03/06/18 15:20 INR 1.19 (0.87-1.13) H 03/06/18 15:20 Sodium 137 mmol/L (137-145) 03/06/18 03:20 Potassium 4.0 mmol/L (3.6-5.0) 03/06/18 03:20 Chloride 104.0 mmol/L (98-107) 03/06/18 03:20 Carbon Dioxide 21 mmol/L (22-30) L 03/06/18 03:20 Anion Gap 16 mmol/L 03/06/18 03:20 BUN 10 mg/dL (7-17) 03/06/18 03:20 Creatinine 0.7 mg/dL (0.7-1.2) 03/06/18 03:20 Estimated GFR > 60 ml/min 03/06/18 03:20 BUN/Creatinine Ratio 14 % 03/06/18 03:20 Glucose 88 mg/dL (65-100) 03/06/18 03:20 Uric Acid 5.2 mg/dL (3.5-7.6) 03/06/18 02:13 Calcium 7.7 mg/dL (8.4-10.2) L 03/06/18 03:20 Iron 19 ug/dL (37-170) L 03/06/18 15:20 TIBC 302 mcg/dL (250-450) 03/06/18 15:20 % Saturation 6.29 % 03/06/18 15:20 Transferrin 274 mg/dl (192-382) 03/06/18 15:20 Ferritin 100.5 ng/mL (13.0-400.0) 03/06/18 15:20 Total Bilirubin 0.70 mg/dL (0.1-1.2) 03/05/18 21:31 AST 54 units/L (5-40) H 03/05/18 21:31 ALT 25 units/L (7-56) 03/05/18 21:31 Alkaline Phosphatase 396 units/L (35-129) H 03/05/18 21:31 Lactate Dehydrogenase 343 units/L (91-180) H 03/06/18 15:20 Total Protein 7.9 g/dL (6.3-8.2) 03/05/18 21:31 Albumin 3.4 g/dL (3.9-5) L 03/05/18 21:31 Albumin/Globulin Ratio 0.8 % 03/05/18 21:31 Vitamin B12 725.0 pg/mL (211-911) 03/06/18 15:20 Folate > 20 ng/mL (7.3-26.0) 03/06/18 15:20 Blood Type B POSITIVE 03/05/18 22:31 Antibody Screen Negative 03/05/18 22:31 Crossmatch See Detail 03/05/18 22:31
--- NOTE | 2018-03-07 14:00 | Hem/Onc Progress Note ---
Subjective Date of service: 03/07/18 Principal diagnosis: splenomegaly Interval history: Pancytopenia , massive splenomegaly, liver lesion suspect lymphoma - Patient comfortable but has resting tachycardia - CT guided liver, bone marrow bx pending Objective - Constitutional Vitals: Last Vital Signs Temp 97.8 F 03/07/18 04:00 Pulse 120 H 03/07/18 10:00 Resp 20 03/07/18 04:00 BP 126/88 03/07/18 04:00 Pulse Ox 97 03/07/18 08:16 Pain Intensity (0-10): denies any pain General appearance: no acute distress, mild distress, other (ill appearing) Performance status: 2- selfcare, ambulatory - EENT Eyes: PERRL, EOM intact ENT: hearing intact, clear oral mucosa, dentition normal - Neck Neck: supple, normal ROM - Respiratory Respiratory: bilateral: CTA - Cardiovascular Rhythm: other (resting tachycardia) - Gastrointestinal General gastrointestinal: Present: non-tender, splenomegaly (massive ) - Labs Lab Results: Laboratory Results - last 24 hr 03/06/18 03/06/18 03/06/18 02:12 02:13 15:20 Percent Retic 1.71 PT INR Uric Acid 5.2 Iron TIBC % Saturation Transferrin Ferritin Lactate Dehydrogenase 307 H Vitamin B12 Folate 03/06/18 03/06/18 03/06/18 15:20 15:20 15:20 Percent Retic PT INR Uric Acid Iron 19 L TIBC 302 % Saturation 6.29 Transferrin 274 Ferritin 100.5 Lactate Dehydrogenase 343 H Vitamin B12 725.0 Folate 03/06/18 03/06/18 15:20 15:20 Percent Retic PT 15.8 H INR 1.19 H Uric Acid Iron TIBC % Saturation Transferrin Ferritin Lactate Dehydrogenase Vitamin B12 Folate > 20
[2018-03-07] MEDS: MORPHINE IV PRN (15:16)
[2018-03-07] MEDS: PERCOCET 5/325 PO PRN (17:52)
[2018-03-07] MEDS: ZOFRAN IV PRN (20:17)
[2018-03-08] MEDS: VANCOMYCIN/NS 1 GM/250 ML 1 GM/250 ML BAG IV SCH ×2 (02:11→16:01)
[2018-03-08] MEDS: ZOSYN/NS 4.5GM/100ML 4.5 GM/100 ML VIAL IV SCH ×3 (05:55→23:48)
[2018-03-08] MEDS: SODIUM CHLORIDE FLUSH SYRINGE 10 ML IV SCH ×3 (09:59→23:49)
--- NOTE | 2018-03-08 11:11 | Progress Note ---
Assessment and Plan Assessment and plan: Patient is a 32 yo woman with a history of myasthenia gravis who pw cough, LBP, sob, dizziness, night sweats and abd pains. * CT chest with IV contrast IMPRESSION: Large heterogeneously enhancing mass in the left upper quadrant of the abdomen, not fully imaged; this could be related to an enlarged spleen or other mass. There are also numerous small subcentimeter hepatic nodules, which could be metastatic. Recommend further evaluation with CT abdomen pelvis. Large layering left pleural effusion. There is adjacent left lung base atelectasis or infiltrate. Findings discussed by telephone with Dr. Wheeler at 9:50 p.m. central standard time on 03/05/2018. * CT abd/pelvis with contrast IMPRESSION: There is diffuse enlargement of the spleen. The differential is extensive and includes benign and malignant etiologies including infectious etiologies as well as lymphoma and leukemia. * 2v CXR IMPRESSION: There is moderate infiltrate/atelectasis with effusion in the left lower lung.. -Abdominal pains due to Splenomegaly with liver nodules most likely lymphoma ( sterility with treatment of Lymphoma discussed): bx pending, percocet helps -Anemia/leukopenia suspected due to malignant process: Hematology/Oncologist following, monitor cbc closely, s/p 1 unit of prbc -Large pleural effusion: thoracentesis ordered for Friday -Pneumonia, aspiration type: continue iv vancomycin, and iv zosyn -Myasthenia gravis by history: check free T4 and total T3 with TSH -DVT prophylaxis: scd only due to anemia need liver bx, get thoracentesis, need bone marrow bx, will be done on Friday History Interval history: Patient was seen and examined. Follow-up on current diagnosis abd pains. Overnight uneventful. Patient denies any chest pain, shortness breath, or severe headaches. Imaging, nursing note, chart, labs and old chart reviewed. Discussed with patient. Hospitalist Physical - Physical exam Narrative exam: GEN: thin, NAD, Awake, Alert, Orientated HEENT: NCAT, EOMI, PERRL, OP Clear NECK: supple, no adenopathy, no thyromegaly, no JVD CVS/HEART: regular tachycardia, normal S1S2, pulses present bilaterally CHEST/LUNGS: diminished bs bilateral, Symmetrical chest expansion, good air entry bilaterally GI/Abdomen: distended, hsm, diffuse tendernes good bowel sounds, no guarding or rebound /Bladder: no suprapubic tenderness, no CVA or paraspinal tenderness EXT/Skin: no c/c/e, no obvious rash MSK: FROM x 4 Neuro: CN 2-12 grossly intact, no new focal deficits Psych: calm - Constitutional Vitals: Temp Pulse Resp BP Pulse Ox 98.1 F 110 H 18 112/81 96 03/08/18 04:00 03/08/18 10:00 03/08/18 08:00 03/08/18 04:00 03/08/18 08:43 Results - Labs CBC & Chem 7: 03/06/18 12:27 03/06/18 03:20 Labs: Laboratory Last Values WBC 1.6 K/mm3 (4.5-11.0) L* 03/06/18 12:27 RBC 3.69 M/mm3 (3.65-5.03) 03/06/18 12:27 Hgb 7.2 gm/dl (10.1-14.3) L 03/06/18 12:27 Hct 25.3 % (30.3-42.9) L 03/06/18 12:27 MCV 69 fl (79-97) L 03/06/18 12:27 MCH 20 pg (28-32) L 03/06/18 12:27 MCHC 28 % (30-34) L 03/06/18 12:27 RDW 22.1 % (13.2-15.2) H 03/06/18 12:27 Plt Count 265 K/mm3 (140-440) 03/06/18 12:27 Add Manual Diff Complete 03/06/18 12:27 Total Counted 100 03/06/18 12:27 Seg Neuts % (Manual) 79.0 % (40.0-70.0) H 03/06/18 12:27 Band Neutrophils % 0 % 03/06/18 12:27 Lymphocytes % (Manual) 11.0 % (13.4-35.0) L 03/06/18 12:27 Reactive Lymphs % (Man) 0 % 03/06/18 12:27 Monocytes % (Manual) 6.0 % (0.0-7.3) 03/06/18 12:27 Eosinophils % (Manual) 2.0 % (0.0-4.3) 03/06/18 12:27 Basophils % (Manual) 2.0 % (0.0-1.8) H 03/06/18 12:27 Metamyelocytes % 0 % 03/06/18 12:27 Myelocytes % 0 % 03/06/18 12:27 Promyelocytes % 0 % 03/06/18 12:27 Blast Cells % 0 % 03/06/18 12:27 Nucleated RBC % Not Reportable 03/06/18 12:27 Seg Neutrophils # Man 1.3 K/mm3 (1.8-7.7) L 03/06/18 12:27 Band Neutrophils # 0.0 K/mm3 03/06/18 12:27 Lymphocytes # (Manual) 0.2 K/mm3 (1.2-5.4) L 03/06/18 12:27 Abs React Lymphs (Man) 0.0 K/mm3 03/06/18 12:27 Monocytes # (Manual) 0.1 K/mm3 (0.0-0.8) 03/06/18 12:27 Eosinophils # (Manual) 0.0 K/mm3 (0.0-0.4) 03/06/18 12:27 Basophils # (Manual) 0.0 K/mm3 (0.0-0.1) 03/06/18 12:27 Metamyelocytes # 0.0 K/mm3 03/06/18 12:27 Myelocytes # 0.0 K/mm3 03/06/18 12:27 Promyelocytes # 0.0 K/mm3 03/06/18 12:27 Blast Cells # 0.0 K/mm3 03/06/18 12:27 WBC Morphology Not Reportable 03/06/18 12:27 Hypersegmented Neuts Not Reportable 03/06/18 12:27 Hyposegmented Neuts Not Reportable 03/06/18 12:27 Hypogranular Neuts Not Reportable 03/06/18 12:27 Smudge Cells Not Reportable 03/06/18 12:27 Toxic Granulation Not Reportable 03/06/18 12:27 Toxic Vacuolation Not Reportable 03/06/18 12:27 Dohle Bodies Not Reportable 03/06/18 12:27 Pelger-Huet Anomaly Not Reportable 03/06/18 12:27 Shonna Rods Not Reportable 03/06/18 12:27 Platelet Estimate Consistent w auto 03/06/18 12:27 Clumped Platelets Not Reportable 03/06/18 12:27 Plt Clumps, EDTA Not Reportable 03/06/18 12:27 Large Platelets Not Reportable 03/06/18 12:27 Giant Platelets Not Reportable 03/06/18 12:27 Platelet Satelliting Not Reportable 03/06/18 12:27 Plt Morphology Comment Not Reportable 03/06/18 12:27 RBC Morphology Not Reportable 03/06/18 12:27 Dimorphic RBCs Not Reportable 03/06/18 12:27 Polychromasia Not Reportable 03/06/18 12:27 Hypochromasia 2+ 03/06/18 12:27 Poikilocytosis 1+ 03/06/18 12:27 Anisocytosis 1+ 03/06/18 12:27 Microcytosis 1+ 03/06/18 12:27 Macrocytosis Not Reportable 03/06/18 12:27 Spherocytes Not Reportable 03/06/18 12:27 Pappenheimer Bodies Not Reportable 03/06/18 12:27 Sickle Cells Not Reportable 03/06/18 12:27 Target Cells Not Reportable 03/06/18 12:27 Tear Drop Cells Rare 03/06/18 12:27 Ovalocytes 1+ 03/06/18 12:27 Helmet Cells Not Reportable 03/06/18 12:27 [place] Bodies Not Reportable 03/06/18 12:27 [place] Rings Not Reportable 03/06/18 12:27 Leon Cells Not Reportable 03/06/18 12:27 Bite Cells Not Reportable 03/06/18 12:27 Crenated Cell Not Reportable 03/06/18 12:27 Elliptocytes 1+ 03/06/18 12:27 Acanthocytes (Spur) Not Reportable 03/06/18 12:27 Rouleaux Not Reportable 03/06/18 12:27 Hemoglobin C Crystals Not Reportable 03/06/18 12:27 Schistocytes Not Reportable 03/06/18 12:27 Malaria parasites Not Reportable 03/06/18 12:27 Percent Retic 1.71 % (0.78-2.58) 03/06/18 15:20 Antonino Bodies Not Reportable 03/06/18 12:27 Hem Pathologist Commnt No 03/06/18 12:27 PT 15.8 Sec. (12.2-14.9) H 03/06/18 15:20 INR 1.19 (0.87-1.13) H 03/06/18 15:20 Sodium 137 mmol/L (137-145) 03/06/18 03:20 Potassium 4.0 mmol/L (3.6-5.0) 03/06/18 03:20 Chloride 104.0 mmol/L (98-107) 03/06/18 03:20 Carbon Dioxide 21 mmol/L (22-30) L 03/06/18 03:20 Anion Gap 16 mmol/L 03/06/18 03:20 BUN 10 mg/dL (7-17) 03/06/18 03:20 Creatinine 0.7 mg/dL (0.7-1.2) 03/06/18 03:20 Estimated GFR > 60 ml/min 03/06/18 03:20 BUN/Creatinine Ratio 14 % 03/06/18 03:20 Glucose 88 mg/dL (65-100) 03/06/18 03:20 Uric Acid 5.2 mg/dL (3.5-7.6) 03/06/18 02:13 Calcium 7.7 mg/dL (8.4-10.2) L 03/06/18 03:20 Iron 19 ug/dL (37-170) L 03/06/18 15:20 TIBC 302 mcg/dL (250-450) 03/06/18 15:20 % Saturation 6.29 % 03/06/18 15:20 Transferrin 274 mg/dl (192-382) 03/06/18 15:20 Ferritin 100.5 ng/mL (13.0-400.0) 03/06/18 15:20 Total Bilirubin 0.70 mg/dL (0.1-1.2) 03/05/18 21:31 AST 54 units/L (5-40) H 03/05/18 21:31 ALT 25 units/L (7-56) 03/05/18 21:31 Alkaline Phosphatase 396 units/L (35-129) H 03/05/18 21:31 Lactate Dehydrogenase 343 units/L (91-180) H 03/06/18 15:20 Troponin T < 0.010 ng/mL (0.00-0.029) 03/07/18 16:28 Total Protein 7.9 g/dL (6.3-8.2) 03/05/18 21:31 Albumin 3.4 g/dL (3.9-5) L 03/05/18 21:31 Albumin/Globulin Ratio 0.8 % 03/05/18 21:31 Vitamin B12 725.0 pg/mL (211-911) 03/06/18 15:20 Folate > 20 ng/mL (7.3-26.0) 03/06/18 15:20 TSH 1.780 mlU/mL (0.270-4.200) 03/07/18 13:19 Free T4 1.26 ng/dL (0.76-1.46) 03/07/18 13:19 Vancomycin Trough 21.2 ug/mL (5.0-20.0) H 03/08/18 08:48 Blood Type B POSITIVE 03/05/18 22:31 Antibody Screen Negative 03/05/18 22:31 Crossmatch See Detail 03/05/18 22:31
[2018-03-08] MEDS: ROBITUSSIN AC PO PRN (16:02)
[2018-03-08] MEDS: PERCOCET 5/325 PO PRN (16:09)
--- NOTE | 2018-03-08 16:20 | Hem/Onc Progress Note ---
Assessment and Plan - Patient Problems (1) Abdominal mass Current Visit: Yes Status: Acute Plan to address problem: Plan is for liver biopsy, bone marrow and thoracentesis in AM. Await biopsy results. If non diagnostic consider splenectomy. Subjective Date of service: 03/08/18 Interval history: She states she feels stable. Pain is present and manageable. No worsening of symptoms. Objective - Constitutional Vitals: Last Vital Signs Temp 98 F 03/08/18 08:00 Pulse 110 H 03/08/18 10:00 Resp 18 03/08/18 12:00 BP 121/62 03/08/18 08:00 Pulse Ox 96 03/08/18 08:43 General appearance: no acute distress - EENT Eyes: PERRL ENT: hearing intact Lymph node exam: negative cervical - Neck Neck: supple - Respiratory Respiratory effort: Positive: normal Respiratory: bilateral: CTA - Labs Lab Results: Laboratory Results - last 24 hr 03/07/18 03/08/18 16:28 08:48 Troponin T < 0.010 Vancomycin Trough 21.2 H
[2018-03-09] MEDS: PERCOCET 5/325 PO PRN ×2 (00:05→20:33)
[2018-03-09] MEDS: VANCOMYCIN/NS 1 GM/250 ML 1 GM/250 ML BAG IV SCH ×4 (03:00→21:45)
[2018-03-09] MEDS: ZOSYN/NS 4.5GM/100ML 4.5 GM/100 ML VIAL IV SCH ×3 (05:46→22:44)
--- NOTE | 2018-03-09 07:13 | Progress Note ---
Assessment and Plan Assessment and plan: Patient is a 32 yo woman with a history of myasthenia gravis who pw cough, LBP, sob, dizziness, night sweats and abd pains. * CT chest with IV contrast IMPRESSION: Large heterogeneously enhancing mass in the left upper quadrant of the abdomen, not fully imaged; this could be related to an enlarged spleen or other mass. There are also numerous small subcentimeter hepatic nodules, which could be metastatic. Recommend further evaluation with CT abdomen pelvis. Large layering left pleural effusion. There is adjacent left lung base atelectasis or infiltrate. Findings discussed by telephone with Dr. Wheeler at 9:50 p.m. central standard time on 03/05/2018. * CT abd/pelvis with contrast IMPRESSION: There is diffuse enlargement of the spleen. The differential is extensive and includes benign and malignant etiologies including infectious etiologies as well as lymphoma and leukemia. * 2v CXR IMPRESSION: There is moderate infiltrate/atelectasis with effusion in the left lower lung.. -Abdominal pains due to Splenomegaly with liver nodules most likely lymphoma ( sterility with treatment of Lymphoma discussed): bx pending, percocet helps -Anemia/leukopenia suspected due to malignant process: Hematology/Oncologist following, monitor cbc closely, s/p 1 unit of prbc -Large pleural effusion: thoracentesis ordered for Friday -Pneumonia, aspiration type: continue iv vancomycin, and iv zosyn -Myasthenia gravis by history: checked free T4. TSH==>normal but total T3 still pending -DVT prophylaxis: scd only due to anemia need liver bx and bone marrow bx, and thoracentesis today Acute encephalopathy/confusion per nursing note (pt denies this) overnight after Robitussin AC give, will stop, and order Tessalon perles and prn Robitussin without codeine History Interval history: Patient was seen and examined. Follow-up on current diagnosis abd pains. Overnight with confusion, will stop Robitussin with AC. Patient denies any chest pain, shortness breath, or severe headaches. Imaging, nursing note, chart , labs and old chart reviewed. Discussed with patient. Hospitalist Physical - Physical exam Narrative exam: GEN: thin, NAD, Awake, Alert, Orientated x3 HEENT: NCAT, EOMI, PERRL, OP Clear NECK: supple, no adenopathy, no thyromegaly, no JVD CVS/HEART: regular tachycardia, normal S1S2, pulses present bilaterally CHEST/LUNGS: diminished bs bilateral, left >right diminshed, Symmetrical chest expansion, good air entry bilaterally GI/Abdomen: distended, hsm, diffuse tendernes good bowel sounds, no guarding or rebound /Bladder: no suprapubic tenderness, no CVA or paraspinal tenderness EXT/Skin: no c/c/e, no obvious rash MSK: FROM x 4 Neuro: CN 2-12 grossly intact, no new focal deficits Psych: calm - Constitutional Vitals: Temp Pulse Resp BP Pulse Ox 97.8 F 110 H 14 121/62 97 03/09/18 04:56 03/09/18 04:56 03/09/18 04:56 03/09/18 04:56 03/09/18 04:56 Results - Labs CBC & Chem 7: 03/06/18 12:27 03/06/18 03:20 Labs: Laboratory Last Values WBC 1.6 K/mm3 (4.5-11.0) L* 03/06/18 12:27 RBC 3.69 M/mm3 (3.65-5.03) 03/06/18 12:27 Hgb 7.2 gm/dl (10.1-14.3) L 03/06/18 12:27 Hct 25.3 % (30.3-42.9) L 03/06/18 12:27 MCV 69 fl (79-97) L 03/06/18 12:27 MCH 20 pg (28-32) L 03/06/18 12:27 MCHC 28 % (30-34) L 03/06/18 12:27 RDW 22.1 % (13.2-15.2) H 03/06/18 12:27 Plt Count 265 K/mm3 (140-440) 03/06/18 12:27 Add Manual Diff Complete 03/06/18 12:27 Total Counted 100 03/06/18 12:27 Seg Neuts % (Manual) 79.0 % (40.0-70.0) H 03/06/18 12:27 Band Neutrophils % 0 % 03/06/18 12:27 Lymphocytes % (Manual) 11.0 % (13.4-35.0) L 03/06/18 12:27 Reactive Lymphs % (Man) 0 % 03/06/18 12:27 Monocytes % (Manual) 6.0 % (0.0-7.3) 03/06/18 12:27 Eosinophils % (Manual) 2.0 % (0.0-4.3) 03/06/18 12:27 Basophils % (Manual) 2.0 % (0.0-1.8) H 03/06/18 12:27 Metamyelocytes % 0 % 03/06/18 12:27 Myelocytes % 0 % 03/06/18 12:27 Promyelocytes % 0 % 03/06/18 12:27 Blast Cells % 0 % 03/06/18 12:27 Nucleated RBC % Not Reportable 03/06/18 12:27 Seg Neutrophils # Man 1.3 K/mm3 (1.8-7.7) L 03/06/18 12:27 Band Neutrophils # 0.0 K/mm3 03/06/18 12:27 Lymphocytes # (Manual) 0.2 K/mm3 (1.2-5.4) L 03/06/18 12:27 Abs React Lymphs (Man) 0.0 K/mm3 03/06/18 12:27 Monocytes # (Manual) 0.1 K/mm3 (0.0-0.8) 03/06/18 12:27 Eosinophils # (Manual) 0.0 K/mm3 (0.0-0.4) 03/06/18 12:27 Basophils # (Manual) 0.0 K/mm3 (0.0-0.1) 03/06/18 12:27 Metamyelocytes # 0.0 K/mm3 03/06/18 12:27 Myelocytes # 0.0 K/mm3 03/06/18 12:27 Promyelocytes # 0.0 K/mm3 03/06/18 12:27 Blast Cells # 0.0 K/mm3 03/06/18 12:27 WBC Morphology Not Reportable 03/06/18 12:27 Hypersegmented Neuts Not Reportable 03/06/18 12:27 Hyposegmented Neuts Not Reportable 03/06/18 12:27 Hypogranular Neuts Not Reportable 03/06/18 12:27 Smudge Cells Not Reportable 03/06/18 12:27 Toxic Granulation Not Reportable 03/06/18 12:27 Toxic Vacuolation Not Reportable 03/06/18 12:27 Dohle Bodies Not Reportable 03/06/18 12:27 Pelger-Huet Anomaly Not Reportable 03/06/18 12:27 Shonna Rods Not Reportable 03/06/18 12:27 Platelet Estimate Consistent w auto 03/06/18 12:27 Clumped Platelets Not Reportable 03/06/18 12:27 Plt Clumps, EDTA Not Reportable 03/06/18 12:27 Large Platelets Not Reportable 03/06/18 12:27 Giant Platelets Not Reportable 03/06/18 12:27 Platelet Satelliting Not Reportable 03/06/18 12:27 Plt Morphology Comment Not Reportable 03/06/18 12:27 RBC Morphology Not Reportable 03/06/18 12:27 Dimorphic RBCs Not Reportable 03/06/18 12:27 Polychromasia Not Reportable 03/06/18 12:27 Hypochromasia 2+ 03/06/18 12:27 Poikilocytosis 1+ 03/06/18 12:27 Anisocytosis 1+ 03/06/18 12:27 Microcytosis 1+ 03/06/18 12:27 Macrocytosis Not Reportable 03/06/18 12:27 Spherocytes Not Reportable 03/06/18 12:27 Pappenheimer Bodies Not Reportable 03/06/18 12:27 Sickle Cells Not Reportable 03/06/18 12:27 Target Cells Not Reportable 03/06/18 12:27 Tear Drop Cells Rare 03/06/18 12:27 Ovalocytes 1+ 03/06/18 12:27 Helmet Cells Not Reportable 03/06/18 12:27 Mand[place] Bodies Not Reportable 03/06/18 12:27 [place] Rings Not Reportable 03/06/18 12:27 Leon Cells Not Reportable 03/06/18 12:27 Bite Cells Not Reportable 03/06/18 12:27 Crenated Cell Not Reportable 03/06/18 12:27 Elliptocytes 1+ 03/06/18 12:27 Acanthocytes (Spur) Not Reportable 03/06/18 12:27 Rouleaux Not Reportable 03/06/18 12:27 Hemoglobin C Crystals Not Reportable 03/06/18 12:27 Schistocytes Not Reportable 03/06/18 12:27 Malaria parasites Not Reportable 03/06/18 12:27 Percent Retic 1.71 % (0.78-2.58) 03/06/18 15:20 Antonino Bodies Not Reportable 03/06/18 12:27 Hem Pathologist Commnt No 03/06/18 12:27 PT 15.8 Sec. (12.2-14.9) H 03/06/18 15:20 INR 1.19 (0.87-1.13) H 03/06/18 15:20 Sodium 137 mmol/L (137-145) 03/06/18 03:20 Potassium 4.0 mmol/L (3.6-5.0) 03/06/18 03:20 Chloride 104.0 mmol/L (98-107) 03/06/18 03:20 Carbon Dioxide 21 mmol/L (22-30) L 03/06/18 03:20 Anion Gap 16 mmol/L 03/06/18 03:20 BUN 10 mg/dL (7-17) 03/06/18 03:20 Creatinine 0.7 mg/dL (0.7-1.2) 03/06/18 03:20 Estimated GFR > 60 ml/min 03/06/18 03:20 BUN/Creatinine Ratio 14 % 03/06/18 03:20 Glucose 88 mg/dL (65-100) 03/06/18 03:20 Uric Acid 5.2 mg/dL (3.5-7.6) 03/06/18 02:13 Calcium 7.7 mg/dL (8.4-10.2) L 03/06/18 03:20 Iron 19 ug/dL (37-170) L 03/06/18 15:20 TIBC 302 mcg/dL (250-450) 03/06/18 15:20 % Saturation 6.29 % 03/06/18 15:20 Transferrin 274 mg/dl (192-382) 03/06/18 15:20 Ferritin 100.5 ng/mL (13.0-400.0) 03/06/18 15:20 Total Bilirubin 0.70 mg/dL (0.1-1.2) 03/05/18 21:31 AST 54 units/L (5-40) H 03/05/18 21:31 ALT 25 units/L (7-56) 08/02/18 21:31 Alkaline Phosphatase 396 units/L (35-129) H 03/05/18 21:31 Lactate Dehydrogenase 343 units/L (91-180) H 03/06/18 15:20 Troponin T < 0.010 ng/mL (0.00-0.029) 03/07/18 16:28 Total Protein 7.9 g/dL (6.3-8.2) 03/05/18 21:31 Albumin 3.4 g/dL (3.9-5) L 03/05/18 21:31 Albumin/Globulin Ratio 0.8 % 03/05/18 21:31 Vitamin B12 725.0 pg/mL (211-911) 03/06/18 15:20 Folate > 20 ng/mL (7.3-26.0) 03/06/18 15:20 TSH 1.780 mlU/mL (0.270-4.200) 03/07/18 13:19 Free T4 1.26 ng/dL (0.76-1.46) 03/07/18 13:19 Vancomycin Trough 21.2 ug/mL (5.0-20.0) H 03/08/18 08:48 Blood Type B POSITIVE 03/05/18 22:31 Antibody Screen Negative 03/05/18 22:31 Crossmatch See Detail 03/05/18 22:31
--- NOTE | 2018-03-09 09:34 | Hem/Onc Progress Note ---
Assessment and Plan We will follow-up on the biopsies. We will check CBC prior to procedures Subjective Date of service: 03/09/18 Interval history: Patient feels fair. For liver biopsy, bone marrow biopsy and left pleurocentesis to be done today Objective - Constitutional Vitals: Last Vital Signs Temp 98.3 F 03/09/18 08:00 Pulse 105 H 03/09/18 08:00 Resp 18 03/09/18 08:00 BP 117/82 03/09/18 08:00 Pulse Ox 99 03/09/18 08:45 Pain Intensity (0-10): denies any pain General appearance: no acute distress Performance status: 2- selfcare, ambulatory - Neck Neck: supple - Respiratory Respiratory: left: diminished - Cardiovascular Rhythm: regular Extremities: No edema - Gastrointestinal General gastrointestinal: Present: soft, splenomegaly - Labs Lab Results: Laboratory Results - last 24 hr 03/08/18 08:48 Vancomycin Trough 21.2 H
[2018-03-09 10:10] LABS: Mean Corpuscular HGB Conc 29 % (30-34); Platelet Count 277 K/mm3 (140-440); Red Blood Count 3.97 M/mm3 (3.65-5.03)
[2018-03-09 10:13] LABS: Hematocrit 27.2 % (30.3-42.9); Hemoglobin 7.9 gm/dl (10.1-14.3); Mean Corpuscular Hemoglobin 20 pg (28-32); Mean Corpuscular Volume 69 fl (79-97); Red Cell Distribution Width 22.8 % (13.2-15.2)
[2018-03-09] MEDS ORDERED: XYLOCAINE 1% 20 mL ONE (10:16)
[2018-03-09] MEDS ORDERED: VERSED IV ONE ×2 (10:26→11:00)
[2018-03-09] MEDS ORDERED: SUBLIMAZE ONE (10:26)
[2018-03-09] MEDS ORDERED: SUBLIMAZE IV ONE (11:00)
[2018-03-09] MEDS ORDERED: BENADRYL ONE (11:25)
[2018-03-09] MEDS ORDERED: BENADRYL IV ONE (12:22)
--- NOTE | 2018-03-09 13:33 | Cat Scan Report ---
CT BIOPSY BONE MARROW: HISTORY: Lymphoma. DESCRIPTION OF PROCEDURE: Informed consent was obtained. Sterile technique was utilized. Conscious sedation was accomplished with Versed and fentanyl. The patient was sedated for 20 minutes. Independent cardiorespiratory monitoring by RN. Intra-observer time of [address] guidance, an introducer needle was advanced into the right posterior iliac bone. 4 aspirations and one 11-gauge bone core was obtained. Pathology was present to handle the sample. The patient tolerated the procedure without difficulty. IMPRESSION: Successful CT-guided bone marrow biopsy.
--- NOTE | 2018-03-09 13:35 | Cat Scan Report ---
CT BIOPSY LIVER History: Hepatosplenomegaly. Description of procedure: Informed consent was obtained. Sterile technique was utilized. 1% lidocaine for skin anesthesia. Moderate sedation was accomplished with Versed and fentanyl. The patient was sedated for 15 minutes. Independent cardiorespiratory monitoring by RN. Intraobserver time of [address] guidance, a 17-gauge introducer needle was advanced into the right hepatic lobe. A single 1.3 cm 18-gauge core biopsy was obtained and placed in formalin. Followup scan demonstrates no evidence for hemorrhage. No complications. Impression: Successful CT-guided biopsy of the right hepatic lobe.
[2018-03-09] MEDS: MORPHINE IV PRN (13:59)
[2018-03-09] MEDS: TESSALON PERLES PO SCH ×4 (14:28→22:44)
[2018-03-09] MEDS: SODIUM CHLORIDE FLUSH SYRINGE 10 ML IV SCH ×2 (14:28→22:00)
--- NOTE | 2018-03-09 15:24 | Procedure Note ---
Date of procedure: 03/09/18 Pre-op diagnosis: left pleural effusion Post-op diagnosis: same Procedure: US thoracentesis Findings: large left pleural effusion Anesthesia: local Surgeon: PAUL MOYA Estimated blood loss: none Pathology: list (120cc of bloody fluid) Specimen disposition: to lab Condition: stable Disposition: floor
--- NOTE | 2018-03-09 15:40 | Ultrasound Report ---
ULTRASOUND THORACENTESIS History: Left pleural effusion. Description of procedure: Informed consent was obtained. Sterile technique was utilized. 1% lidocaine for skin anesthesia. Using ultrasound guidance, a 5 [place] centesis needle was advanced into a left pleural effusion. There is spontaneous return of blood-tinged fluid. 2900 cc of fluid was aspirated. 120 cc of fluid was sent to the lab for analysis. No complications. Impression: Successful ultrasound-guided left thoracentesis.
[2018-03-09] MEDS ORDERED: MORPHINE IV STA (16:44)
--- NOTE | 2018-03-09 17:39 | XRay Report ---
FINAL REPORT EXAM: XR CHEST 1V AP HISTORY: left pleural effusion, recent thoracentesis TECHNIQUE: Frontal portable view of the chest Comparison: Chest x-ray and chest CT dated March 05, 2018 FINDINGS: There is diffuse patchy pulmonary consolidation involving much of the left lung. There is no evidence of pneumothorax or pleural fluid collection. The right lung is without evidence of pulmonary infiltrate. The cardiomediastinal silhouette is not significantly changed in the interval. IMPRESSION: 1. Diffuse left-sided pulmonary infiltrates. 2. No evidence of pneumothorax or pleural fluid collection.
[2018-03-09] MEDS: ROBITUSSIN PO PRN (17:42)
[2018-03-09] MEDS ORDERED: NACL 0.9% 500 ML 500 ML IV ONE (19:41)
[2018-03-09] MEDS: TYLENOL PO PRN (20:43)
[2018-03-09] MEDS: NACL 0.9% 1000 ML 1,000 ML IV SCH (21:13)
[2018-03-10 07:28] LABS: Mean Corpuscular HGB Conc 28 % (30-34); Platelet Count 245 K/mm3 (140-440); Red Blood Count 3.58 M/mm3 (3.65-5.03)
[2018-03-10 07:29] LABS: Mean Corpuscular Hemoglobin 19 pg (28-32); Mean Corpuscular Volume 68 fl (79-97); Red Cell Distribution Width 23.5 % (13.2-15.2)
[2018-03-10 07:30] LABS: Hematocrit 24.4 % (30.3-42.9); Hemoglobin 6.9 gm/dl (10.1-14.3)
[2018-03-10 07:41] LABS: BUN/Creatinine Ratio 18; Blood Urea Nitrogen 9 mg/dL (7-17); Calcium 7.9 mg/dL (8.4-10.2); Hemolysis Index 7
[2018-03-10 08:33] LABS: Basophils % (Manual) 0 % (0.0-1.8); Total Cells Counted 100
[2018-03-10 08:34] LABS: Anisocytosis 2+; Hypochromasia 2+; Platelet Estimate Consistent w Auto
[2018-03-10] MEDS: TESSALON PERLES PO SCH ×2 (09:00→16:12)
[2018-03-10] MEDS: VANCOMYCIN/NS 1 GM/250 ML 1 GM/250 ML BAG IV SCH (09:37)
[2018-03-10] MEDS: NACL 0.9% 1000 ML 1,000 ML IV SCH (09:38)
--- NOTE | 2018-03-10 11:42 | Progress Note ---
Assessment and Plan Assessment and plan: Patient is a 32 yo woman with a history of myasthenia gravis who pw cough, LBP, sob, dizziness, night sweats and abd pains. * CT chest with IV contrast IMPRESSION: Large heterogeneously enhancing mass in the left upper quadrant of the abdomen, not fully imaged; this could be related to an enlarged spleen or other mass. There are also numerous small subcentimeter hepatic nodules, which could be metastatic. Recommend further evaluation with CT abdomen pelvis. Large layering left pleural effusion. There is adjacent left lung base atelectasis or infiltrate. Findings discussed by telephone with Dr. Wheeler at 9:50 p.m. central standard time on 03/05/2018. * CT abd/pelvis with contrast IMPRESSION: There is diffuse enlargement of the spleen. The differential is extensive and includes benign and malignant etiologies including infectious etiologies as well as lymphoma and leukemia. * 2v CXR IMPRESSION: There is moderate infiltrate/atelectasis with effusion in the left lower lung.. -Abdominal pains due to Splenomegaly : ddx include malignancy, chronic inflammatory condition, chronic infection is unlikely , sp liver biopsy and BM bx -Anemia/leukopenia transfused prbc -Large pleural effusion: sp thoracentesis, fup fluid analysis, added fluid cytology -Pneumonia, aspiration type: cont abx -Myasthenia gravis by history: currently asymptomatic anc well controlled -DVT prophylaxis: scd only due to anemia Acute toxic encephalopathy/confusion per nursing note; was likely due to codeine , was dc, now resolved History Interval history: Review of systems Constitutional: No fevers, no malaise, no joint pains CVS: No chest pain, no orthopnea, no dyspnea on exertion, no pedal edema GI: No abdominal pain, no diarrhea, no vomiting, no constipation Respiratory: No shortness of breath, no wheezing, no coughing Hospitalist Physical - Physical exam Narrative exam: General.: Appears well, no distress, nontoxic HEENT: Moist mucous membranes, extraocular muscles intact, no lymphadenopathy Neck: supple Cardiac: S1-S2 heard Lungs: clear to auscultation bilaterally Abdomen: soft , nontender, distended, bowel sounds positive Extremities: no edema clubbing or cyanosis Skin: no rash or lesions Neurologic: no gross focal deficits Psych: appropriate behavior, appropriate mood, corporative, judgment intact - Constitutional Vitals: Temp Pulse Resp BP Pulse Ox 98.2 F 107 H 20 101/62 100 03/10/18 08:00 03/10/18 08:00 03/10/18 08:00 03/10/18 08:00 03/10/18 04:00 Results - Labs CBC & Chem 7: 03/14/18 09:02 03/12/18 06:28 Labs: Laboratory Last Values WBC 1.9 K/mm3 (4.5-11.0) L* 03/10/18 06:30 RBC 3.58 M/mm3 (3.65-5.03) L 03/10/18 06:30 Hgb 6.9 gm/dl (10.1-14.3) L 03/10/18 06:30 Hct 24.4 % (30.3-42.9) L 03/10/18 06:30 MCV 68 fl (79-97) L 03/10/18 06:30 MCH 19 pg (28-32) L 03/10/18 06:30 MCHC 28 % (30-34) L 03/10/18 06:30 RDW 23.5 % (13.2-15.2) H 03/10/18 06:30 Plt Count 245 K/mm3 (140-440) 03/10/18 06:30 Add Manual Diff Complete 03/10/18 06:30 Total Counted 100 03/10/18 06:30 Seg Neuts % (Manual) 72.0 % (40.0-70.0) H 03/10/18 06:30 Band Neutrophils % 0 % 03/10/18 06:30 Lymphocytes % (Manual) 13.0 % (13.4-35.0) L 03/10/18 06:30 Reactive Lymphs % (Man) 0 % 03/10/18 06:30 Monocytes % (Manual) 13.0 % (0.0-7.3) H 03/10/18 06:30 Eosinophils % (Manual) 2.0 % (0.0-4.3) 03/10/18 06:30 Basophils % (Manual) 0 % (0.0-1.8) 03/10/18 06:30 Metamyelocytes % 0 % 03/10/18 06:30 Myelocytes % 0 % 03/10/18 06:30 Promyelocytes % 0 % 03/10/18 06:30 Blast Cells % 0 % 03/10/18 06:30 Nucleated RBC % Not Reportable 03/10/18 06:30 Seg Neutrophils # Man 1.4 K/mm3 (1.8-7.7) L 03/10/18 06:30 Band Neutrophils # 0.0 K/mm3 03/10/18 06:30 Lymphocytes # (Manual) 0.2 K/mm3 (1.2-5.4) L 03/10/18 06:30 Abs React Lymphs (Man) 0.0 K/mm3 03/10/18 06:30 Monocytes # (Manual) 0.2 K/mm3 (0.0-0.8) 03/10/18 06:30 Eosinophils # (Manual) 0.0 K/mm3 (0.0-0.4) 03/10/18 06:30 Basophils # (Manual) 0.0 K/mm3 (0.0-0.1) 03/10/18 06:30 Metamyelocytes # 0.0 K/mm3 03/10/18 06:30 Myelocytes # 0.0 K/mm3 03/10/18 06:30 Promyelocytes # 0.0 K/mm3 03/10/18 06:30 Blast Cells # 0.0 K/mm3 03/10/18 06:30 WBC Morphology Not Reportable 03/10/18 06:30 Hypersegmented Neuts Not Reportable 03/10/18 06:30 Hyposegmented Neuts Not Reportable 03/10/18 06:30 Hypogranular Neuts Not Reportable 03/10/18 06:30 Smudge Cells Not Reportable 03/10/18 06:30 Toxic Granulation Not Reportable 03/10/18 06:30 Toxic Vacuolation Not Reportable 03/10/18 06:30 Dohle Bodies Not Reportable 03/10/18 06:30 Pelger-Huet Anomaly Not Reportable 03/10/18 06:30 Shonna Rods Not Reportable 03/10/18 06:30 Platelet Estimate Consistent w auto 03/10/18 06:30 Clumped Platelets Not Reportable 03/10/18 06:30 Plt Clumps, EDTA Not Reportable 03/10/18 06:30 Large Platelets Not Reportable 03/10/18 06:30 Giant Platelets Not Reportable 03/10/18 06:30 Platelet Satelliting Not Reportable 03/10/18 06:30 Plt Morphology Comment Not Reportable 03/10/18 06:30 RBC Morphology Not Reportable 03/10/18 06:30 Dimorphic RBCs Not Reportable 03/10/18 06:30 Polychromasia Not Reportable 03/10/18 06:30 Hypochromasia 2+ 03/10/18 06:30 Poikilocytosis Not Reportable 03/10/18 06:30 Anisocytosis 2+ 03/10/18 06:30 Microcytosis 1+ 03/10/18 06:30 Macrocytosis Not Reportable 03/10/18 06:30 Spherocytes Not Reportable 03/10/18 06:30 Pappenheimer Bodies Not Reportable 03/10/18 06:30 Sickle Cells Not Reportable 03/10/18 06:30 Target Cells Not Reportable 03/10/18 06:30 Tear Drop Cells Not Reportable 03/10/18 06:30 Ovalocytes Not Reportable 03/10/18 06:30 Helmet Cells Not Reportable 03/10/18 06:30 Mandujano-[place] Bodies Not Reportable 03/10/18 06:30 [place] Rings Not Reportable 03/10/18 06:30 [place] Cells Not Reportable 03/10/18 06:30 Bite Cells Not Reportable 03/10/18 06:30 Crenated Cell Not Reportable 03/10/18 06:30 Elliptocytes Not Reportable 03/10/18 06:30 Acanthocytes (Spur) Not Reportable 03/10/18 06:30 Rouleaux Not Reportable 03/10/18 06:30 Hemoglobin C Crystals Not Reportable 03/10/18 06:30 Schistocytes Not Reportable 03/10/18 06:30 Malaria parasites Not Reportable 03/10/18 06:30 Percent Retic 1.71 % (0.78-2.58) 03/06/18 15:20 Antonino Bodies Not Reportable 03/10/18 06:30 Hem Pathologist Commnt No 03/10/18 06:30 PT 15.8 Sec. (12.2-14.9) H 03/06/18 15:20 INR 1.19 (0.87-1.13) H 03/06/18 15:20 Sodium 135 mmol/L (137-145) L 03/10/18 06:30 Potassium 4.4 mmol/L (3.6-5.0) 03/10/18 06:30 Chloride 101.9 mmol/L (98-107) 03/10/18 06:30 Carbon Dioxide 18 mmol/L (22-30) L 03/10/18 06:30 Anion Gap 20 mmol/L 03/10/18 06:30 BUN 9 mg/dL (7-17) 03/10/18 06:30 Creatinine 0.5 mg/dL (0.7-1.2) L 03/10/18 06:30 Estimated GFR > 60 ml/min 03/10/18 06:30 BUN/Creatinine Ratio 18 % 03/10/18 06:30 Glucose 76 mg/dL (65-100) 03/10/18 06:30 Uric Acid 5.2 mg/dL (3.5-7.6) 03/06/18 02:13 Calcium 7.9 mg/dL (8.4-10.2) L 03/10/18 06:30 Iron 19 ug/dL (37-170) L 03/06/18 15:20 TIBC 302 mcg/dL (250-450) 03/06/18 15:20 % Saturation 6.29 % 03/06/18 15:20 Transferrin 274 mg/dl (192-382) 03/06/18 15:20 Ferritin 100.5 ng/mL (13.0-400.0) 03/06/18 15:20 Total Bilirubin 0.70 mg/dL (0.1-1.2) 03/05/18 21:31 AST 54 units/L (5-40) H 03/05/18 21:31 ALT 25 units/L (7-56) 03/05/18 21:31 Alkaline Phosphatase 396 units/L (35-129) H 03/05/18 21:31 Lactate Dehydrogenase 343 units/L (91-180) H 03/06/18 15:20 Troponin T < 0.010 ng/mL (0.00-0.029) 03/07/18 16:28 Total Protein 7.9 g/dL (6.3-8.2) 03/05/18 21:31 Albumin 3.4 g/dL (3.9-5) L 03/05/18 21:31 Albumin/Globulin Ratio 0.8 % 03/05/18 21:31 Vitamin B12 725.0 pg/mL (211-911) 03/06/18 15:20 Folate > 20 ng/mL (7.3-26.0) 03/06/18 15:20 TSH 1.780 mlU/mL (0.270-4.200) 03/07/18 13:19 Free T4 1.26 ng/dL (0.76-1.46) 03/07/18 13:19 Vancomycin Trough 21.2 ug/mL (5.0-20.0) H 03/08/18 08:48 Blood Type B POSITIVE 03/05/18 22:31 Antibody Screen Negative 03/05/18 22:31 Crossmatch See Detail 03/05/18 22:31
[2018-03-10] MEDS ORDERED: NACL 0.9% 500 ML 500 ML IV ONE (11:43)
[2018-03-10] MEDS: ZOSYN/NS 4.5GM/100ML 4.5 GM/100 ML VIAL IV SCH (14:00)
[2018-03-10] MEDS: PERCOCET 5/325 PO PRN (17:50)
--- NOTE | 2018-03-10 18:46 | Hem/Onc Progress Note ---
Assessment and Plan - Patient Problems (1) Abdominal mass Current Visit: Yes Status: Acute Plan to address problem: Await pathology reports. Subjective Date of service: 03/10/18 Interval history: No new complains. Objective - Constitutional Vitals: Last Vital Signs Temp 98.2 F 03/10/18 08:00 Pulse 107 H 03/10/18 08:00 Resp 20 03/10/18 08:00 BP 101/62 03/10/18 08:00 Pulse Ox 100 03/10/18 04:00 Pain Intensity (0-10): denies any pain - EENT Eyes: PERRL ENT: hearing intact Lymph node exam: negative cervical - Neck Neck: supple - Respiratory Respiratory effort: Positive: normal - Labs Lab Results: Laboratory Results - last 24 hr 03/06/18 03/07/18 03/10/18 15:20 13:19 06:30 WBC RBC Hgb Hct MCV MCH MCHC RDW Plt Count Add Manual Diff Total Counted Seg Neuts % (Manual) Band Neutrophils % Lymphocytes % (Manual) Reactive Lymphs % (Man) Monocytes % (Manual) Eosinophils % (Manual) Basophils % (Manual) Metamyelocytes % Myelocytes % Promyelocytes % Blast Cells % Nucleated RBC % Seg Neutrophils # Man Band Neutrophils # Lymphocytes # (Manual) Abs React Lymphs (Man) Monocytes # (Manual) Eosinophils # (Manual) Basophils # (Manual) Metamyelocytes # Myelocytes # Promyelocytes # Blast Cells # WBC Morphology Hypersegmented Neuts Hyposegmented Neuts Hypogranular Neuts Smudge Cells Toxic Granulation Toxic Vacuolation Dohle Bodies Pelger-Huet Anomaly Shonna Rods Platelet Estimate Clumped Platelets Plt Clumps, EDTA Large Platelets Giant Platelets Platelet Satelliting Plt Morphology Comment RBC Morphology Dimorphic RBCs Polychromasia Hypochromasia Poikilocytosis Anisocytosis Microcytosis Macrocytosis Spherocytes Pappenheimer Bodies Sickle Cells Target Cells Tear Drop Cells Ovalocytes Helmet Cells Mandujano-[place] Bodies Ramer Rings Leon Cells Bite Cells Crenated Cell Elliptocytes Acanthocytes (Spur) Rouleaux Hemoglobin C Crystals Schistocytes Malaria parasites Antonino Bodies Hem Pathologist Commnt Sodium 135 L Potassium 4.4 Chloride 101.9 Carbon Dioxide 18 L Anion Gap 20 BUN 9 Creatinine 0.5 L Estimated GFR > 60 BUN/Creatinine Ratio 18 Glucose 76 Calcium 7.9 L T3 (SHANICE) 102 Immunofix Electrophor see below Blood Type Antibody Screen Crossmatch 03/10/18 03/10/18 06:30 13:28 WBC 1.9 L* RBC 3.58 L Hgb 6.9 L Hct 24.4 L MCV 68 L MCH 19 L MCHC 28 L RDW 23.5 H Plt Count 245 Add Manual Diff Complete Total Counted 100 Seg Neuts % (Manual) 72.0 H Band Neutrophils % 0 Lymphocytes % (Manual) 13.0 L Reactive Lymphs % (Man) 0 Monocytes % (Manual) 13.0 H Eosinophils % (Manual) 2.0 Basophils % (Manual) 0 Metamyelocytes % 0 Myelocytes % 0 Promyelocytes % 0 Blast Cells % 0 Nucleated RBC % Not Reportable Seg Neutrophils # Man 1.4 L Band Neutrophils # 0.0 Lymphocytes # (Manual) 0.2 L Abs React Lymphs (Man) 0.0 Monocytes # (Manual) 0.2 Eosinophils # (Manual) 0.0 Basophils # (Manual) 0.0 Metamyelocytes # 0.0 Myelocytes # 0.0 Promyelocytes # 0.0 Blast Cells # 0.0 WBC Morphology Not Reportable Hypersegmented Neuts Not Reportable Hyposegmented Neuts Not Reportable Hypogranular Neuts Not Reportable Smudge Cells Not Reportable Toxic Granulation Not Reportable Toxic Vacuolation Not Reportable Dohle Bodies Not Reportable Pelger-Huet Anomaly Not Reportable Shonna Rods Not Reportable Platelet Estimate Consistent w auto Clumped Platelets Not Reportable Plt Clumps, EDTA Not Reportable Large Platelets Not Reportable Giant Platelets Not Reportable Platelet Satelliting Not Reportable Plt Morphology Comment Not Reportable RBC Morphology Not Reportable Dimorphic RBCs Not Reportable Polychromasia Not Reportable Hypochromasia 2+ Poikilocytosis Not Reportable Anisocytosis 2+ Microcytosis 1+ Macrocytosis Not Reportable Spherocytes Not Reportable Pappenheimer Bodies Not Reportable Sickle Cells Not Reportable Target Cells Not Reportable Tear Drop Cells Not Reportable Ovalocytes Not Reportable Helmet Cells Not Reportable Mandujano-[place] Bodies Not Reportable [place]er Rings Not Reportable [place] Cells Not Reportable Bite Cells Not Reportable Crenated Cell Not Reportable Elliptocytes Not Reportable Acanthocytes (Spur) Not Reportable Rouleaux Not Reportable Hemoglobin C Crystals Not Reportable Schistocytes Not Reportable Malaria parasites Not Reportable Antonino Bodies Not Reportable Hem Pathologist Commnt No Sodium Potassium Chloride Carbon Dioxide Anion Gap BUN Creatinine Estimated GFR BUN/Creatinine Ratio Glucose Calcium T3 (SHANICE) Immunofix Electrophor Blood Type B POSITIVE Antibody Screen Negative Crossmatch See Detail
[2018-03-10 23:11] LABS: Gamma Globulin 2.7 g/dL (0.8-1.7)
[2018-03-11] MEDS: TESSALON PERLES PO SCH ×5 (00:03→22:13)
[2018-03-11] MEDS: ZOSYN/NS 4.5GM/100ML 4.5 GM/100 ML VIAL IV SCH ×6 (00:04→22:12)
[2018-03-11] MEDS: SODIUM CHLORIDE FLUSH SYRINGE 10 ML IV SCH ×4 (00:06→22:12)
[2018-03-11] MEDS: VANCOMYCIN/NS 1 GM/250 ML 1 GM/250 ML BAG IV SCH ×3 (00:06→22:15)
[2018-03-11] MEDS: PERCOCET 5/325 PO PRN ×2 (00:08→16:16)
[2018-03-11] MEDS: NACL 0.9% 1000 ML 1,000 ML IV SCH ×2 (00:18→22:10)
[2018-03-11 12:40] LABS: Mean Corpuscular HGB Conc 29 % (30-34); Mean Corpuscular Volume 72 fl (79-97); Platelet Count 238 K/mm3 (140-440); Red Blood Count 3.87 M/mm3 (3.65-5.03)
[2018-03-11 12:47] LABS: BUN/Creatinine Ratio 10; Blood Urea Nitrogen 7 mg/dL (7-17); Calcium 7.7 mg/dL (8.4-10.2); Hemolysis Index 3
[2018-03-11 12:49] LABS: Hemoglobin 8.1 gm/dl (10.1-14.3); Mean Corpuscular Hemoglobin 21 pg (28-32); Red Cell Distribution Width 24.2 % (13.2-15.2)
[2018-03-11 14:12] LABS: Anisocytosis 2+; Hypochromasia 2+; Poikilocytosis 1+; Total Cells Counted 100
[2018-03-11 14:13] LABS: Ovalocytes 1+; Platelet Estimate Cons; Tear Drop Cells Few
[2018-03-12] MEDS: ZOSYN/NS 4.5GM/100ML 4.5 GM/100 ML VIAL IV SCH ×2 (05:20→14:46)
[2018-03-12] MEDS: TESSALON PERLES PO SCH ×2 (05:20→14:09)
[2018-03-12 06:59] LABS: Mean Corpuscular HGB Conc 29 % (30-34); Mean Corpuscular Volume 71 fl (79-97); Platelet Count 246 K/mm3 (140-440); Red Blood Count 3.85 M/mm3 (3.65-5.03)
[2018-03-12 07:13] LABS: Hematocrit 27.4 % (30.3-42.9)
[2018-03-12 07:14] LABS: Mean Corpuscular Hemoglobin 21 pg (28-32); Red Cell Distribution Width 24.8 % (13.2-15.2)
[2018-03-12 07:21] LABS: BUN/Creatinine Ratio 14; Blood Urea Nitrogen 7 mg/dL (7-17); Calcium 7.6 mg/dL (8.4-10.2); Hemolysis Index 0
[2018-03-12 08:32] LABS: Anisocytosis 2+; Basophils % (Manual) 0 % (0.0-1.8); Total Cells Counted 100
[2018-03-12 08:33] LABS: Hypochromasia 2+; Ovalocytes 1+; Platelet Estimate Cons; Poikilocytosis 1+; Tear Drop Cells Few
[2018-03-12] MEDS: VANCOMYCIN/NS 1 GM/250 ML 1 GM/250 ML BAG IV SCH (12:25)
[2018-03-12] MEDS: SODIUM CHLORIDE FLUSH SYRINGE 10 ML IV SCH (12:25)
--- NOTE | 2018-03-12 13:23 | Hem/Onc Progress Note ---
Assessment and Plan - Patient Problems (1) Abdominal mass Current Visit: Yes Status: Acute Plan to address problem: The first biopsy shows non caseating granulomas. No cancer. Await bone marrow results. D/w Dr Jacobs about splenectomy. Had conference with Dr Mayer and Dr Graham and Dr Jacobs,. Subjective Date of service: 03/12/18 Interval history: Pain is better overall. Looks much better Objective - Constitutional Vitals: Last Vital Signs Temp 98.2 F 03/12/18 11:53 Pulse 94 H 03/12/18 11:53 Resp 16 03/12/18 11:53 BP 127/94 03/12/18 11:53 Pulse Ox 100 03/12/18 11:53 - EENT Eyes: PERRL ENT: hearing intact Lymph node exam: negative cervical - Neck Neck: supple - Respiratory Respiratory effort: Positive: normal Respiratory: bilateral: CTA - Cardiovascular Rhythm: regular Heart Sounds: Present: S1 & S2 - Labs Lab Results: Laboratory Results - last 24 hr 03/11/18 03/12/18 03/12/18 11:36 06:28 06:28 WBC 1.8 L* RBC 3.85 Hgb 8.0 L Hct 27.4 L MCV 71 L MCH 21 L MCHC 29 L RDW 24.8 H Plt Count 246 Add Manual Diff Complete Complete Total Counted 100 100 Seg Neuts % (Manual) 83.0 H 79.0 H Band Neutrophils % 0 0 Lymphocytes % (Manual) 8.0 L 12.0 L Reactive Lymphs % (Man) 0 0 Monocytes % (Manual) 5.0 7.0 Eosinophils % (Manual) 2.0 2.0 Basophils % (Manual) 2.0 H 0 Metamyelocytes % 0 0 Myelocytes % 0 0 Promyelocytes % 0 0 Blast Cells % 0 0 Nucleated RBC % Not Reportable Not Reportable Seg Neutrophils # Man 1.2 L 1.4 L Band Neutrophils # 0.0 0.0 Lymphocytes # (Manual) 0.1 L 0.2 L Abs React Lymphs (Man) 0.0 0.0 Monocytes # (Manual) 0.1 0.1 Eosinophils # (Manual) 0.0 0.0 Basophils # (Manual) 0.0 0.0 Metamyelocytes # 0.0 0.0 Myelocytes # 0.0 0.0 Promyelocytes # 0.0 0.0 Blast Cells # 0.0 0.0 WBC Morphology Not Reportable Not Reportable Hypersegmented Neuts Not Reportable Not Reportable Hyposegmented Neuts Not Reportable Not Reportable Hypogranular Neuts Not Reportable Not Reportable Smudge Cells Not Reportable Not Reportable Toxic Granulation Not Reportable Not Reportable Toxic Vacuolation Not Reportable Not Reportable Dohle Bodies Not Reportable Not Reportable Pelger-Huet Anomaly Not Reportable Not Reportable Shonna Rods Not Reportable Not Reportable Platelet Estimate Cons Cons Clumped Platelets Not Reportable Not Reportable Plt Clumps, EDTA Not Reportable Not Reportable Large Platelets Not Reportable Not Reportable Giant Platelets Not Reportable Not Reportable Platelet Satelliting Not Reportable Not Reportable Plt Morphology Comment Not Reportable Not Reportable RBC Morphology Not Reportable Not Reportable Dimorphic RBCs Not Reportable Not Reportable Polychromasia Not Reportable Not Reportable Hypochromasia 2+ 2+ Poikilocytosis 1+ 1+ Anisocytosis 2+ 2+ Microcytosis 1+ 1+ Macrocytosis Not Reportable Not Reportable Spherocytes Not Reportable Not Reportable Pappenheimer Bodies Not Reportable Not Reportable Sickle Cells Not Reportable Not Reportable Target Cells Not Reportable Not Reportable Tear Drop Cells Few Few Ovalocytes 1+ 1+ Helmet Cells Not Reportable Not Reportable Mandujano-[place] Bodies Not Reportable Not Reportable [place] Rings Not Reportable Not Reportable Leon Cells Not Reportable Not Reportable Bite Cells Not Reportable Not Reportable Crenated Cell Not Reportable Not Reportable Elliptocytes Few Few Acanthocytes (Spur) Not Reportable Not Reportable Rouleaux Not Reportable Not Reportable Hemoglobin C Crystals Not Reportable Not Reportable Schistocytes Not Reportable Not Reportable Malaria parasites Not Reportable Not Reportable Antonino Bodies Not Reportable Not Reportable Hem Pathologist Commnt No No Sodium 136 L Potassium 4.1 Chloride 102.6 Carbon Dioxide 20 L Anion Gap 18 BUN 7 Creatinine 0.5 L Estimated GFR > 60 BUN/Creatinine Ratio 14 Glucose 97 Calcium 7.6 L
[2018-03-12] MEDS: NACL 0.9% 1000 ML 1,000 ML IV SCH (14:09)
--- NOTE | 2018-03-12 15:14 | Consultation ---
History of Present Illness Consult date: 03/12/18 Chief complaint: splenomegaly - History of present illness History of present illness: 33 yo F with hx of myasthenia gravis now in remission, s/p thymectomy presents to ER with c/o cough for more than 2 weeks. She states the cough was not productive. She was also having left lateral chest wall and back pain and dyspnea with exertion for the last 2weeks. She has never had symptoms like this in past. She also c/o subjective fevers at night, night sweats. She has noticed her stomach growing over the past several months, starting in June. She has not had any weight loss but notes early satiety since June 2017. She was having clear and yellow emesis over the past several days. She has no family hx of cancer. Today she feels well. She is tolerating a reg diet. Past History Past Medical History: No medical history (myasthenia gravin diagnosed in 2003 off treatment for a while), other (myasthenia gravis) Past Surgical History: Other (thymectomy) Social history: no significant social history Family history: no significant family history Medications and Allergies Allergies Allergy/AdvReac Type Severity Reaction Status Date / Time magnesium Allergy Unknown Verified 03/05/18 16:16 Home Medications Medication Instructions Recorded Confirmed Last Taken Type No Known Home Medications [No 03/06/18 03/06/18 Unknown History Reported Home Medications] Active Meds: Active Medications Acetaminophen (Tylenol) 650 mg PO Q4H PRN PRN Reason: Pain MILD(1-3)/Fever >100.5/HERBERT Last Admin: 03/09/18 20:43 Dose: 650 mg Benzonatate (Tessalon Perles) 100 mg PO Q8HR THAI Last Admin: 03/12/18 14:09 Dose: 100 mg Guaifenesin (Robitussin) 200 mg PO Q4H PRN PRN Reason: Cough Last Admin: 03/09/18 17:42 Dose: 200 mg Piperacillin Sod/Tazobactam Sod (Zosyn/Ns 4.5gm/100ml) 4.5 gm in 100 mls @ 200 mls/hr IV Q8HR THAI; Protocol Last Admin: 03/12/18 14:46 Dose: 200 mls/hr Vancomycin HCl (Vancomycin/Ns 1 Gm/250 Ml) 1 gm in 250 mls @ 166.667 mls/hr IV Q12HR THAI Last Admin: 03/12/18 12:25 Dose: 166.667 mls/hr Sodium Chloride (Nacl 0.9% 1000 Ml) 1,000 mls @ 75 mls/hr IV DIRECT [facility] Last Admin: 03/12/18 14:09 Dose: 75 mls/hr Morphine Sulfate (Morphine) 2 mg IV Q4H PRN PRN Reason: Pain , Severe (7-10) Last Admin: 03/09/18 13:59 Dose: 2 mg Ondansetron HCl (Zofran) 4 mg IV Q4H PRN PRN Reason: Nausea And Vomiting Last Admin: 03/07/18 20:17 Dose: 4 mg Oxycodone/Acetaminophen (Percocet 5/325) 1 tab PO Q6H PRN PRN Reason: Pain, Moderate (4-6) Last Admin: 03/11/18 16:16 Dose: 1 tab Sodium Chloride (Sodium Chloride Flush Syringe 10 Ml) 10 ml IV BID [facility] Last Admin: 03/12/18 12:25 Dose: 10 ml Sodium Chloride (Sodium Chloride Flush Syringe 10 Ml) 10 ml IV PRN PRN PRN Reason: LINE FLUSH Vancomycin HCl (Vancomycin Pharmacy To Dose) 1 each IV PKCONSULT [facility] Review of Systems All systems: negative (10 pt ROS performed and negative except for that listed in HPI) Exam Vital Signs Temp Pulse Resp BP Pulse Ox 98.1 F 135 H 16 116/76 100 03/05/18 16:10 03/05/18 16:10 03/05/18 16:10 03/05/18 16:10 03/05/18 16:10 Narrative exam: Gen: AAOx3. NAd ENT: no scleral icterus or conjunctival pallor. No obvious LAD CV: S1, S2+. tachycardic resp: CTAB, no w/r/r Abd: soft, ND, NT. Firm to palpation in LUQ, palpable spleen at least 8 cm below costal margin. Ext: no c/c/e Results - Labs 03/12/18 06:28 03/12/18 06:28 Abnormal lab results 03/12/18 03/12/18 Range/Units 06:28 06:28 WBC 1.8 L* (4.5-11.0) K/mm3 Hgb 8.0 L (10.1-14.3) gm/dl Hct 27.4 L (30.3-42.9) % MCV 71 L (79-97) fl MCH 21 L (28-32) pg MCHC 29 L (30-34) % RDW 24.8 H (13.2-15.2) % Seg Neuts % (Manual) 79.0 H (40.0-70.0) % Lymphocytes % (Manual) 12.0 L (13.4-35.0) % Seg Neutrophils # Man 1.4 L (1.8-7.7) K/mm3 Lymphocytes # (Manual) 0.2 L (1.2-5.4) K/mm3 Sodium 136 L (137-145) mmol/L Carbon Dioxide 20 L (22-30) mmol/L Creatinine 0.5 L (0.7-1.2) mg/dL Calcium 7.6 L (8.4-10.2) mg/dL Diabetes panel 03/12/18 Range/Units 06:28 Sodium 136 L (137-145) mmol/L Potassium 4.1 (3.6-5.0) mmol/L Chloride 102.6 (98-107) mmol/L Carbon Dioxide 20 L (22-30) mmol/L BUN 7 (7-17) mg/dL Creatinine 0.5 L (0.7-1.2) mg/dL Glucose 97 (65-100) mg/dL Calcium 7.6 L (8.4-10.2) mg/dL Calcium panel 03/12/18 Range/Units 06:28 Calcium 7.6 L (8.4-10.2) mg/dL Pituitary panel 03/12/18 Range/Units 06:28 Sodium 136 L (137-145) mmol/L Potassium 4.1 (3.6-5.0) mmol/L Chloride 102.6 (98-107) mmol/L Carbon Dioxide 20 L (22-30) mmol/L BUN 7 (7-17) mg/dL Creatinine 0.5 L (0.7-1.2) mg/dL Glucose 97 (65-100) mg/dL Calcium 7.6 L (8.4-10.2) mg/dL Adrenal panel 03/12/18 Range/Units 06:28 Sodium 136 L (137-145) mmol/L Potassium 4.1 (3.6-5.0) mmol/L Chloride 102.6 (98-107) mmol/L Carbon Dioxide 20 L (22-30) mmol/L BUN 7 (7-17) mg/dL Creatinine 0.5 L (0.7-1.2) mg/dL Glucose 97 (65-100) mg/dL Calcium 7.6 L (8.4-10.2) mg/dL - Imaging CT scan - abdomen: report reviewed, image reviewed CT scan - pelvis: report reviewed, image reviewed Assessment and Plan 33 yo F with 1. splenomegaly 2. leukopenia 3. anemia 4. intraabdominal and retroperitoneal lymphadenopathy 5. left pleural effusion s/p thoracentesis Pleural fluid - reactive mesothelial cells, macrophages, scattered inflammatory cells Plan: 1. Clinical symptoms and imaging concerning for lymphoma vs infectious process 2. bone marrow bx pending 3. continue current diet 4. heme/onc on board 5. monitor labs 6. I discussed possible splenectomy with the patient pending results of bone marrow biopsy. She understands the plan and all questions answered. Will follow patient's clinic course and await biopsy result. Case D/W Dr. Villagran. Thank you for this consultation, please call with questions or concerns.
--- NOTE | 2018-03-12 16:35 | Progress Note ---
Assessment and Plan Assessment and plan: Patient is a 32 yo woman with a history of myasthenia gravis who pw cough, LBP, sob, dizziness, night sweats and abd pains. * CT chest with IV contrast IMPRESSION: Large heterogeneously enhancing mass in the left upper quadrant of the abdomen, not fully imaged; this could be related to an enlarged spleen or other mass. There are also numerous small subcentimeter hepatic nodules, which could be metastatic. Recommend further evaluation with CT abdomen pelvis. Large layering left pleural effusion. There is adjacent left lung base atelectasis or infiltrate. Findings discussed by telephone with Dr. Wheeler at 9:50 p.m. central standard time on 03/05/2018. * CT abd/pelvis with contrast IMPRESSION: There is diffuse enlargement of the spleen. The differential is extensive and includes benign and malignant etiologies including infectious etiologies as well as lymphoma and leukemia. * 2v CXR IMPRESSION: There is moderate infiltrate/atelectasis with effusion in the left lower lung.. -Abdominal pains due to Splenomegaly : ddx include malignancy, chronic inflammatory condition, chronic infection is unlikely , sp liver biopsy and BM bx -Anemia/leukopenia transfused prbc -Large pleural effusion: sp thoracentesis, fup fluid analysis, added fluid cytology -Pneumonia, aspiration type: cont abx -Myasthenia gravis by history: currently asymptomatic anc well controlled -DVT prophylaxis: scd only due to anemia Acute toxic encephalopathy/confusion per nursing note; was likely due to codeine , was dc, now resolved History Interval history: Review of systems Constitutional: No fevers, no malaise, no joint pains CVS: No chest pain, no orthopnea, no dyspnea on exertion, no pedal edema GI: No abdominal pain, no diarrhea, no vomiting, no constipation Respiratory: No shortness of breath, no wheezing, no coughing Hospitalist Physical - Physical exam Narrative exam: General.: Appears well, no distress, nontoxic HEENT: Moist mucous membranes, extraocular muscles intact, no lymphadenopathy Neck: supple Cardiac: S1-S2 heard Lungs: clear to auscultation bilaterally Abdomen: soft , nontender, distended, bowel sounds positive Extremities: no edema clubbing or cyanosis Skin: no rash or lesions Neurologic: no gross focal deficits Psych: appropriate behavior, appropriate mood, corporative, judgment intact - Constitutional Vitals: Temp Pulse Resp BP Pulse Ox 98.2 F 94 H 16 127/94 100 03/12/18 11:53 03/12/18 11:53 03/12/18 11:53 03/12/18 11:53 03/12/18 11:53 Results - Labs CBC & Chem 7: 03/14/18 09:02 03/12/18 06:28 Labs: Laboratory Last Values WBC 1.8 K/mm3 (4.5-11.0) L* 03/12/18 06:28 RBC 3.85 M/mm3 (3.65-5.03) 03/12/18 06:28 Hgb 8.0 gm/dl (10.1-14.3) L 03/12/18 06:28 Hct 27.4 % (30.3-42.9) L 03/12/18 06:28 MCV 71 fl (79-97) L 03/12/18 06:28 MCH 21 pg (28-32) L 03/12/18 06:28 MCHC 29 % (30-34) L 03/12/18 06:28 RDW 24.8 % (13.2-15.2) H 03/12/18 06:28 Plt Count 246 K/mm3 (140-440) 03/12/18 06:28 Add Manual Diff Complete 03/12/18 06:28 Total Counted 100 03/12/18 06:28 Seg Neuts % (Manual) 79.0 % (40.0-70.0) H 03/12/18 06:28 Band Neutrophils % 0 % 03/12/18 06:28 Lymphocytes % (Manual) 12.0 % (13.4-35.0) L 03/12/18 06:28 Reactive Lymphs % (Man) 0 % 03/12/18 06:28 Monocytes % (Manual) 7.0 % (0.0-7.3) 03/12/18 06:28 Eosinophils % (Manual) 2.0 % (0.0-4.3) 03/12/18 06:28 Basophils % (Manual) 0 % (0.0-1.8) 03/12/18 06:28 Metamyelocytes % 0 % 03/12/18 06:28 Myelocytes % 0 % 03/12/18 06:28 Promyelocytes % 0 % 03/12/18 06:28 Blast Cells % 0 % 03/12/18 06:28 Nucleated RBC % Not Reportable 03/12/18 06:28 Seg Neutrophils # Man 1.4 K/mm3 (1.8-7.7) L 03/12/18 06:28 Band Neutrophils # 0.0 K/mm3 03/12/18 06:28 Lymphocytes # (Manual) 0.2 K/mm3 (1.2-5.4) L 03/12/18 06:28 Abs React Lymphs (Man) 0.0 K/mm3 03/12/18 06:28 Monocytes # (Manual) 0.1 K/mm3 (0.0-0.8) 03/12/18 06:28 Eosinophils # (Manual) 0.0 K/mm3 (0.0-0.4) 03/12/18 06:28 Basophils # (Manual) 0.0 K/mm3 (0.0-0.1) 03/12/18 06:28 Metamyelocytes # 0.0 K/mm3 03/12/18 06:28 Myelocytes # 0.0 K/mm3 03/12/18 06:28 Promyelocytes # 0.0 K/mm3 03/12/18 06:28 Blast Cells # 0.0 K/mm3 03/12/18 06:28 WBC Morphology Not Reportable 03/12/18 06:28 Hypersegmented Neuts Not Reportable 03/12/18 06:28 Hyposegmented Neuts Not Reportable 03/12/18 06:28 Hypogranular Neuts Not Reportable 03/12/18 06:28 Smudge Cells Not Reportable 03/12/18 06:28 Toxic Granulation Not Reportable 03/12/18 06:28 Toxic Vacuolation Not Reportable 03/12/18 06:28 Dohle Bodies Not Reportable 03/12/18 06:28 Pelger-Huet Anomaly Not Reportable 03/12/18 06:28 Shonna Rods Not Reportable 03/12/18 06:28 Platelet Estimate Cons 03/12/18 06:28 Clumped Platelets Not Reportable 03/12/18 06:28 Plt Clumps, EDTA Not Reportable 03/12/18 06:28 Large Platelets Not Reportable 03/12/18 06:28 Giant Platelets Not Reportable 03/12/18 06:28 Platelet Satelliting Not Reportable 03/12/18 06:28 Plt Morphology Comment Not Reportable 03/12/18 06:28 RBC Morphology Not Reportable 03/12/18 06:28 Dimorphic RBCs Not Reportable 03/12/18 06:28 Polychromasia Not Reportable 03/12/18 06:28 Hypochromasia 2+ 03/12/18 06:28 Poikilocytosis 1+ 03/12/18 06:28 Anisocytosis 2+ 03/12/18 06:28 Microcytosis 1+ 03/12/18 06:28 Macrocytosis Not Reportable 03/12/18 06:28 Spherocytes Not Reportable 03/12/18 06:28 Pappenheimer Bodies Not Reportable 03/12/18 06:28 Sickle Cells Not Reportable 03/12/18 06:28 Target Cells Not Reportable 03/12/18 06:28 Tear Drop Cells Few 03/12/18 06:28 Ovalocytes 1+ 03/12/18 06:28 Helmet Cells Not Reportable 03/12/18 06:28 Mandujano-[place] Bodies Not Reportable 03/12/18 06:28 [place]alt Rings Not Reportable 03/12/18 06:28 [place] Cells Not Reportable 03/12/18 06:28 Bite Cells Not Reportable 03/12/18 06:28 Crenated Cell Not Reportable 03/12/18 06:28 Elliptocytes Few 03/12/18 06:28 Acanthocytes (Spur) Not Reportable 03/12/18 06:28 Rouleaux Not Reportable 03/12/18 06:28 Hemoglobin C Crystals Not Reportable 03/12/18 06:28 Schistocytes Not Reportable 03/12/18 06:28 Malaria parasites Not Reportable 03/12/18 06:28 Percent Retic 1.71 % (0.78-2.58) 03/06/18 15:20 Antonino Bodies Not Reportable 03/12/18 06:28 Hem Pathologist Commnt No 03/12/18 06:28 PT 15.8 Sec. (12.2-14.9) H 03/06/18 15:20 INR 1.19 (0.87-1.13) H 03/06/18 15:20 Sodium 136 mmol/L (137-145) L 03/12/18 06:28 Potassium 4.1 mmol/L (3.6-5.0) 03/12/18 06:28 Chloride 102.6 mmol/L (98-107) 03/12/18 06:28 Carbon Dioxide 20 mmol/L (22-30) L 03/12/18 06:28 Anion Gap 18 mmol/L 03/12/18 06:28 BUN 7 mg/dL (7-17) 03/12/18 06:28 Creatinine 0.5 mg/dL (0.7-1.2) L 03/12/18 06:28 Estimated GFR > 60 ml/min 03/12/18 06:28 BUN/Creatinine Ratio 14 % 03/12/18 06:28 Glucose 97 mg/dL (65-100) 03/12/18 06:28 Uric Acid 5.2 mg/dL (3.5-7.6) 03/06/18 02:13 Calcium 7.6 mg/dL (8.4-10.2) L 03/12/18 06:28 Iron 19 ug/dL (37-170) L 03/06/18 15:20 TIBC 302 mcg/dL (250-450) 03/06/18 15:20 % Saturation 6.29 % 03/06/18 15:20 Transferrin 274 mg/dl (192-382) 03/06/18 15:20 Ferritin 100.5 ng/mL (13.0-400.0) 03/06/18 15:20 Total Bilirubin 0.70 mg/dL (0.1-1.2) 03/05/18 21:31 AST 54 units/L (5-40) H 03/05/18 21:31 ALT 25 units/L (7-56) 03/05/18 21:31 Alkaline Phosphatase 396 units/L (35-129) H 03/05/18 21:31 Lactate Dehydrogenase 343 units/L (91-180) H 03/06/18 15:20 Troponin T < 0.010 ng/mL (0.00-0.029) 03/07/18 16:28 Serum Total Protein 7.4 g/dL (6.1-8.1) 03/06/18 15:20 Total Protein 7.9 g/dL (6.3-8.2) 03/05/18 21:31 Albumin 3.0 g/dL (3.8-4.8) L 03/06/18 15:20 Albumin/Globulin Ratio 0.8 % 03/05/18 21:31 Emxpv-9-Wzpzzevhx 0.4 g/dL (0.2-0.3) H 03/06/18 15:20 Xhjvx-2-Efllwvqbd 0.6 g/dL (0.5-0.9) 03/06/18 15:20 Beta Globulins 0.3 g/dL (0.2-0.5) 03/06/18 15:20 Gamma Globulins 2.7 g/dL (0.8-1.7) H 03/06/18 15:20 Abnorm Protein Band 1 see below 03/06/18 15:20 PEP Interpretation see below H 03/06/18 15:20 Vitamin B12 725.0 pg/mL (211-911) 03/06/18 15:20 Folate > 20 ng/mL (7.3-26.0) 03/06/18 15:20 TSH 1.780 mlU/mL (0.270-4.200) 03/07/18 13:19 Free T4 1.26 ng/dL (0.76-1.46) 03/07/18 13:19 T3 (SHANICE) 102 ng/dL (76-181) 03/07/18 13:19 Vancomycin Trough 21.2 ug/mL (5.0-20.0) H 03/08/18 08:48 Immunofix Electrophor see below 03/06/18 15:20 Blood Type B POSITIVE 03/10/18 13:28 Antibody Screen Negative 03/10/18 13:28 Crossmatch See Detail 03/10/18 13:28
[2018-03-12] MEDS: ROBITUSSIN PO PRN (16:59)
[2018-03-12] MEDS: PERCOCET 5/325 PO PRN (17:28)
[2018-03-13 07:19] LABS: Mean Corpuscular HGB Conc 29 % (30-34); Mean Corpuscular Volume 72 fl (79-97); Platelet Count 248 K/mm3 (140-440); Red Blood Count 3.82 M/mm3 (3.65-5.03)
[2018-03-13 07:20] LABS: Hematocrit 27.5 % (30.3-42.9); Mean Corpuscular Hemoglobin 21 pg (28-32); Red Cell Distribution Width 24.9 % (13.2-15.2)
--- NOTE | 2018-03-13 07:21 | Progress Note ---
Assessment and Plan Assessment and plan: Patient is a 32 yo woman with a history of myasthenia gravis who pw cough, LBP, sob, dizziness, night sweats and abd pains. * CT chest with IV contrast IMPRESSION: Large heterogeneously enhancing mass in the left upper quadrant of the abdomen, not fully imaged; this could be related to an enlarged spleen or other mass. There are also numerous small subcentimeter hepatic nodules, which could be metastatic. Recommend further evaluation with CT abdomen pelvis. Large layering left pleural effusion. There is adjacent left lung base atelectasis or infiltrate. Findings discussed by telephone with Dr. Wheeler at 9:50 p.m. central standard time on 03/05/2018. * CT abd/pelvis with contrast IMPRESSION: There is diffuse enlargement of the spleen. The differential is extensive and includes benign and malignant etiologies including infectious etiologies as well as lymphoma and leukemia. * 2v CXR IMPRESSION: There is moderate infiltrate/atelectasis with effusion in the left lower lung.. -Abdominal pains due to Splenomegaly : pleural fluid cytology, no malignant cells, BM and liver bx show non caseating granulomas, fup KURTIS level planned for IR emoblization to reduce vascularity followed by Splenectomy -Anemia/leukopenia transfused prbc -Large pleural effusion: sp thoracentesis, fluid analysis shows transudative fluid -Pneumonia, aspiration type: cont abx -Myasthenia gravis by history: currently asymptomatic, sp thymoma, in remission -DVT prophylaxis: scd only due to anemia Acute toxic encephalopathy/confusion per nursing note; was likely due to codeine , was dc, now resolved History Interval history: Review of systems Constitutional: No fevers, no malaise, no joint pains CVS: No chest pain, no orthopnea, no dyspnea on exertion, no pedal edema GI: No abdominal pain, no diarrhea, no vomiting, no constipation Respiratory: No shortness of breath, no wheezing, no coughing Hospitalist Physical - Physical exam Narrative exam: General.: Appears well, no distress, nontoxic HEENT: Moist mucous membranes, extraocular muscles intact, no lymphadenopathy Neck: supple Cardiac: S1-S2 heard Lungs: clear to auscultation bilaterally Abdomen: soft , nontender, distended, bowel sounds positive Extremities: no edema clubbing or cyanosis Skin: no rash or lesions Neurologic: no gross focal deficits Psych: appropriate behavior, appropriate mood, corporative, judgment intact - Constitutional Vitals: Temp Pulse Resp BP Pulse Ox 98.6 F 110 H 16 121/81 95 03/13/18 05:37 03/13/18 05:37 03/13/18 05:37 03/13/18 05:37 03/13/18 05:37 Results - Labs CBC & Chem 7: 03/14/18 09:02 03/12/18 06:28 Labs: Laboratory Last Values WBC 1.8 K/mm3 (4.5-11.0) L* 03/12/18 06:28 RBC 3.85 M/mm3 (3.65-5.03) 03/12/18 06:28 Hgb 8.0 gm/dl (10.1-14.3) L 03/12/18 06:28 Hct 27.4 % (30.3-42.9) L 03/12/18 06:28 MCV 71 fl (79-97) L 03/12/18 06:28 MCH 21 pg (28-32) L 03/12/18 06:28 MCHC 29 % (30-34) L 03/12/18 06:28 RDW 24.8 % (13.2-15.2) H 03/12/18 06:28 Plt Count 246 K/mm3 (140-440) 03/12/18 06:28 Add Manual Diff Complete 03/12/18 06:28 Total Counted 100 03/12/18 06:28 Seg Neuts % (Manual) 79.0 % (40.0-70.0) H 03/12/18 06:28 Band Neutrophils % 0 % 03/12/18 06:28 Lymphocytes % (Manual) 12.0 % (13.4-35.0) L 03/12/18 06:28 Reactive Lymphs % (Man) 0 % 03/12/18 06:28 Monocytes % (Manual) 7.0 % (0.0-7.3) 03/12/18 06:28 Eosinophils % (Manual) 2.0 % (0.0-4.3) 03/12/18 06:28 Basophils % (Manual) 0 % (0.0-1.8) 03/12/18 06:28 Metamyelocytes % 0 % 03/12/18 06:28 Myelocytes % 0 % 03/12/18 06:28 Promyelocytes % 0 % 03/12/18 06:28 Blast Cells % 0 % 03/12/18 06:28 Nucleated RBC % Not Reportable 03/12/18 06:28 Seg Neutrophils # Man 1.4 K/mm3 (1.8-7.7) L 03/12/18 06:28 Band Neutrophils # 0.0 K/mm3 03/12/18 06:28 Lymphocytes # (Manual) 0.2 K/mm3 (1.2-5.4) L 03/12/18 06:28 Abs React Lymphs (Man) 0.0 K/mm3 03/12/18 06:28 Monocytes # (Manual) 0.1 K/mm3 (0.0-0.8) 03/12/18 06:28 Eosinophils # (Manual) 0.0 K/mm3 (0.0-0.4) 03/12/18 06:28 Basophils # (Manual) 0.0 K/mm3 (0.0-0.1) 03/12/18 06:28 Metamyelocytes # 0.0 K/mm3 03/12/18 06:28 Myelocytes # 0.0 K/mm3 03/12/18 06:28 Promyelocytes # 0.0 K/mm3 03/12/18 06:28 Blast Cells # 0.0 K/mm3 03/12/18 06:28 WBC Morphology Not Reportable 03/12/18 06:28 Hypersegmented Neuts Not Reportable 03/12/18 06:28 Hyposegmented Neuts Not Reportable 03/12/18 06:28 Hypogranular Neuts Not Reportable 03/12/18 06:28 Smudge Cells Not Reportable 03/12/18 06:28 Toxic Granulation Not Reportable 03/12/18 06:28 Toxic Vacuolation Not Reportable 03/12/18 06:28 Dohle Bodies Not Reportable 03/12/18 06:28 Pelger-Huet Anomaly Not Reportable 03/12/18 06:28 Shonna Rods Not Reportable 03/12/18 06:28 Platelet Estimate Cons 03/12/18 06:28 Clumped Platelets Not Reportable 03/12/18 06:28 Plt Clumps, EDTA Not Reportable 03/12/18 06:28 Large Platelets Not Reportable 03/12/18 06:28 Giant Platelets Not Reportable 03/12/18 06:28 Platelet Satelliting Not Reportable 03/12/18 06:28 Plt Morphology Comment Not Reportable 03/12/18 06:28 RBC Morphology Not Reportable 03/12/18 06:28 Dimorphic RBCs Not Reportable 03/12/18 06:28 Polychromasia Not Reportable 03/12/18 06:28 Hypochromasia 2+ 03/12/18 06:28 Poikilocytosis 1+ 03/12/18 06:28 Anisocytosis 2+ 03/12/18 06:28 Microcytosis 1+ 03/12/18 06:28 Macrocytosis Not Reportable 03/12/18 06:28 Spherocytes Not Reportable 03/12/18 06:28 Pappenheimer Bodies Not Reportable 03/12/18 06:28 Sickle Cells Not Reportable 03/12/18 06:28 Target Cells Not Reportable 03/12/18 06:28 Tear Drop Cells Few 03/12/18 06:28 Ovalocytes 1+ 03/12/18 06:28 Helmet Cells Not Reportable 03/12/18 06:28 Mandujano-[place] Bodies Not Reportable 03/12/18 06:28 [place] Rings Not Reportable 03/12/18 06:28 Leon Cells Not Reportable 03/12/18 06:28 Bite Cells Not Reportable 03/12/18 06:28 Crenated Cell Not Reportable 03/12/18 06:28 Elliptocytes Few 03/12/18 06:28 Acanthocytes (Spur) Not Reportable 03/12/18 06:28 Rouleaux Not Reportable 03/12/18 06:28 Hemoglobin C Crystals Not Reportable 03/12/18 06:28 Schistocytes Not Reportable 03/12/18 06:28 Malaria parasites Not Reportable 03/12/18 06:28 Percent Retic 1.71 % (0.78-2.58) 03/06/18 15:20 Antonino Bodies Not Reportable 03/12/18 06:28 Hem Pathologist Commnt No 03/12/18 06:28 PT 15.8 Sec. (12.2-14.9) H 03/06/18 15:20 INR 1.19 (0.87-1.13) H 03/06/18 15:20 Sodium 136 mmol/L (137-145) L 03/12/18 06:28 Potassium 4.1 mmol/L (3.6-5.0) 03/12/18 06:28 Chloride 102.6 mmol/L (98-107) 03/12/18 06:28 Carbon Dioxide 20 mmol/L (22-30) L 03/12/18 06:28 Anion Gap 18 mmol/L 03/12/18 06:28 BUN 7 mg/dL (7-17) 03/12/18 06:28 Creatinine 0.5 mg/dL (0.7-1.2) L 03/12/18 06:28 Estimated GFR > 60 ml/min 03/12/18 06:28 BUN/Creatinine Ratio 14 % 03/12/18 06:28 Glucose 97 mg/dL (65-100) 03/12/18 06:28 Uric Acid 5.2 mg/dL (3.5-7.6) 03/06/18 02:13 Calcium 7.6 mg/dL (8.4-10.2) L 03/12/18 06:28 Iron 19 ug/dL (37-170) L 03/06/18 15:20 TIBC 302 mcg/dL (250-450) 03/06/18 15:20 % Saturation 6.29 % 03/06/18 15:20 Transferrin 274 mg/dl (192-382) 03/06/18 15:20 Ferritin 100.5 ng/mL (13.0-400.0) 03/06/18 15:20 Total Bilirubin 0.70 mg/dL (0.1-1.2) 03/05/18 21:31 AST 54 units/L (5-40) H 03/05/18 21:31 ALT 25 units/L (7-56) 03/05/18 21:31 Alkaline Phosphatase 396 units/L (35-129) H 03/05/18 21:31 Lactate Dehydrogenase 343 units/L (91-180) H 03/06/18 15:20 Troponin T < 0.010 ng/mL (0.00-0.029) 03/07/18 16:28 Serum Total Protein 7.4 g/dL (6.1-8.1) 03/06/18 15:20 Total Protein 7.9 g/dL (6.3-8.2) 03/05/18 21:31 Albumin 3.0 g/dL (3.8-4.8) L 03/06/18 15:20 Albumin/Globulin Ratio 0.8 % 03/05/18 21:31 Qxuvj-1-Njkixowgm 0.4 g/dL (0.2-0.3) H 03/06/18 15:20 Fucqg-9-Hdhjhfvcj 0.6 g/dL (0.5-0.9) 03/06/18 15:20 Beta Globulins 0.3 g/dL (0.2-0.5) 03/06/18 15:20 Gamma Globulins 2.7 g/dL (0.8-1.7) H 03/06/18 15:20 Abnorm Protein Band 1 see below 03/06/18 15:20 PEP Interpretation see below H 03/06/18 15:20 Vitamin B12 725.0 pg/mL (211-911) 03/06/18 15:20 Folate > 20 ng/mL (7.3-26.0) 03/06/18 15:20 TSH 1.780 mlU/mL (0.270-4.200) 03/07/18 13:19 Free T4 1.26 ng/dL (0.76-1.46) 03/07/18 13:19 T3 (SHANICE) 102 ng/dL (76-181) 03/07/18 13:19 Vancomycin Trough 21.2 ug/mL (5.0-20.0) H 03/08/18 08:48 Immunofix Electrophor see below 03/06/18 15:20 Blood Type B POSITIVE 03/10/18 13:28 Antibody Screen Negative 03/10/18 13:28 Crossmatch See Detail 03/10/18 13:28
[2018-03-13] MEDS: NACL 0.9% 1000 ML 1,000 ML IV SCH (08:30)
[2018-03-13] MEDS: MORPHINE IV PRN ×3 (08:30→20:29)
--- NOTE | 2018-03-13 08:36 | Progress Note ---
Assessment and Plan Assessment and plan: Patient is a 32 yo woman with a history of myasthenia gravis who pw cough, LBP, sob, dizziness, night sweats and abd pains. * CT chest with IV contrast IMPRESSION: Large heterogeneously enhancing mass in the left upper quadrant of the abdomen, not fully imaged; this could be related to an enlarged spleen or other mass. There are also numerous small subcentimeter hepatic nodules, which could be metastatic. Recommend further evaluation with CT abdomen pelvis. Large layering left pleural effusion. There is adjacent left lung base atelectasis or infiltrate. Findings discussed by telephone with Dr. Wheeler at 9:50 p.m. central standard time on 03/05/2018. * CT abd/pelvis with contrast IMPRESSION: There is diffuse enlargement of the spleen. The differential is extensive and includes benign and malignant etiologies including infectious etiologies as well as lymphoma and leukemia. * 2v CXR IMPRESSION: There is moderate infiltrate/atelectasis with effusion in the left lower lung.. -Abdominal pains due to Splenomegaly : ddx include malignancy, chronic inflammatory condition, chronic infection is unlikely , sp liver biopsy and BM bx -Anemia/leukopenia transfused prbc -Large pleural effusion: sp thoracentesis, fup fluid analysis, added fluid cytology -Pneumonia, aspiration type: cont abx -Myasthenia gravis by history: currently asymptomatic anc well controlled -DVT prophylaxis: scd only due to anemia Acute toxic encephalopathy/confusion per nursing note; was likely due to codeine , was dc, now resolved History Interval history: Review of systems Constitutional: No fevers, no malaise, no joint pains CVS: No chest pain, no orthopnea, no dyspnea on exertion, no pedal edema GI: No abdominal pain, no diarrhea, no vomiting, no constipation Respiratory: No shortness of breath, no wheezing, no coughing Hospitalist Physical - Physical exam Narrative exam: General.: Appears well, no distress, nontoxic HEENT: Moist mucous membranes, extraocular muscles intact, no lymphadenopathy Neck: supple Cardiac: S1-S2 heard Lungs: clear to auscultation bilaterally Abdomen: soft , nontender, distended, bowel sounds positive Extremities: no edema clubbing or cyanosis Skin: no rash or lesions Neurologic: no gross focal deficits Psych: appropriate behavior, appropriate mood, corporative, judgment intact - Constitutional Vitals: Temp Pulse Resp BP Pulse Ox 98.6 F 110 H 16 121/81 95 03/13/18 05:37 03/13/18 05:37 03/13/18 05:37 03/13/18 05:37 03/13/18 05:37 Results - Labs CBC & Chem 7: 03/14/18 09:02 03/12/18 06:28 Labs: Laboratory Last Values WBC 2.0 K/mm3 (4.5-11.0) L 03/13/18 05:58 RBC 3.82 M/mm3 (3.65-5.03) 03/13/18 05:58 Hgb 8.0 gm/dl (10.1-14.3) L 03/13/18 05:58 Hct 27.5 % (30.3-42.9) L 03/13/18 05:58 MCV 72 fl (79-97) L 03/13/18 05:58 MCH 21 pg (28-32) L 03/13/18 05:58 MCHC 29 % (30-34) L 03/13/18 05:58 RDW 24.9 % (13.2-15.2) H 03/13/18 05:58 Plt Count 248 K/mm3 (140-440) 03/13/18 05:58 Add Manual Diff Complete 03/12/18 06:28 Total Counted 100 03/12/18 06:28 Seg Neuts % (Manual) 79.0 % (40.0-70.0) H 03/12/18 06:28 Band Neutrophils % 0 % 03/12/18 06:28 Lymphocytes % (Manual) 12.0 % (13.4-35.0) L 03/12/18 06:28 Reactive Lymphs % (Man) 0 % 03/12/18 06:28 Monocytes % (Manual) 7.0 % (0.0-7.3) 03/12/18 06:28 Eosinophils % (Manual) 2.0 % (0.0-4.3) 03/12/18 06:28 Basophils % (Manual) 0 % (0.0-1.8) 03/12/18 06:28 Metamyelocytes % 0 % 03/12/18 06:28 Myelocytes % 0 % 03/12/18 06:28 Promyelocytes % 0 % 03/12/18 06:28 Blast Cells % 0 % 03/12/18 06:28 Nucleated RBC % Not Reportable 03/12/18 06:28 Seg Neutrophils # Man 1.4 K/mm3 (1.8-7.7) L 03/12/18 06:28 Band Neutrophils # 0.0 K/mm3 03/12/18 06:28 Lymphocytes # (Manual) 0.2 K/mm3 (1.2-5.4) L 03/12/18 06:28 Abs React Lymphs (Man) 0.0 K/mm3 03/12/18 06:28 Monocytes # (Manual) 0.1 K/mm3 (0.0-0.8) 03/12/18 06:28 Eosinophils # (Manual) 0.0 K/mm3 (0.0-0.4) 03/12/18 06:28 Basophils # (Manual) 0.0 K/mm3 (0.0-0.1) 03/12/18 06:28 Metamyelocytes # 0.0 K/mm3 03/12/18 06:28 Myelocytes # 0.0 K/mm3 03/12/18 06:28 Promyelocytes # 0.0 K/mm3 03/12/18 06:28 Blast Cells # 0.0 K/mm3 03/12/18 06:28 WBC Morphology Not Reportable 03/12/18 06:28 Hypersegmented Neuts Not Reportable 03/12/18 06:28 Hyposegmented Neuts Not Reportable 03/12/18 06:28 Hypogranular Neuts Not Reportable 03/12/18 06:28 Smudge Cells Not Reportable 03/12/18 06:28 Toxic Granulation Not Reportable 03/12/18 06:28 Toxic Vacuolation Not Reportable 03/12/18 06:28 Dohle Bodies Not Reportable 03/12/18 06:28 Pelger-Huet Anomaly Not Reportable 03/12/18 06:28 Shonna Rods Not Reportable 03/12/18 06:28 Platelet Estimate Cons 03/12/18 06:28 Clumped Platelets Not Reportable 03/12/18 06:28 Plt Clumps, EDTA Not Reportable 03/12/18 06:28 Large Platelets Not Reportable 03/12/18 06:28 Giant Platelets Not Reportable 03/12/18 06:28 Platelet Satelliting Not Reportable 03/12/18 06:28 Plt Morphology Comment Not Reportable 03/12/18 06:28 RBC Morphology Not Reportable 03/12/18 06:28 Dimorphic RBCs Not Reportable 03/12/18 06:28 Polychromasia Not Reportable 03/12/18 06:28 Hypochromasia 2+ 03/12/18 06:28 Poikilocytosis 1+ 03/12/18 06:28 Anisocytosis 2+ 03/12/18 06:28 Microcytosis 1+ 03/12/18 06:28 Macrocytosis Not Reportable 03/12/18 06:28 Spherocytes Not Reportable 03/12/18 06:28 Pappenheimer Bodies Not Reportable 03/12/18 06:28 Sickle Cells Not Reportable 03/12/18 06:28 Target Cells Not Reportable 03/12/18 06:28 Tear Drop Cells Few 03/12/18 06:28 Ovalocytes 1+ 03/12/18 06:28 Helmet Cells Not Reportable 03/12/18 06:28 [place] Bodies Not Reportable 03/12/18 06:28 Tyrone Rings Not Reportable 03/12/18 06:28 Erwin Cells Not Reportable 03/12/18 06:28 Bite Cells Not Reportable 03/12/18 06:28 Crenated Cell Not Reportable 03/12/18 06:28 Elliptocytes Few 03/12/18 06:28 Acanthocytes (Spur) Not Reportable 03/12/18 06:28 Rouleaux Not Reportable 03/12/18 06:28 Hemoglobin C Crystals Not Reportable 03/12/18 06:28 Schistocytes Not Reportable 03/12/18 06:28 Malaria parasites Not Reportable 03/12/18 06:28 Percent Retic 1.71 % (0.78-2.58) 03/06/18 15:20 Antonino Bodies Not Reportable 03/12/18 06:28 Hem Pathologist Commnt No 03/12/18 06:28 PT 15.8 Sec. (12.2-14.9) H 03/06/18 15:20 INR 1.19 (0.87-1.13) H 03/06/18 15:20 Sodium 136 mmol/L (137-145) L 03/12/18 06:28 Potassium 4.1 mmol/L (3.6-5.0) 03/12/18 06:28 Chloride 102.6 mmol/L (98-107) 03/12/18 06:28 Carbon Dioxide 20 mmol/L (22-30) L 03/12/18 06:28 Anion Gap 18 mmol/L 03/12/18 06:28 BUN 7 mg/dL (7-17) 03/12/18 06:28 Creatinine 0.5 mg/dL (0.7-1.2) L 03/12/18 06:28 Estimated GFR > 60 ml/min 03/12/18 06:28 BUN/Creatinine Ratio 14 % 03/12/18 06:28 Glucose 97 mg/dL (65-100) 03/12/18 06:28 Uric Acid 5.2 mg/dL (3.5-7.6) 03/06/18 02:13 Calcium 7.6 mg/dL (8.4-10.2) L 03/12/18 06:28 Iron 19 ug/dL (37-170) L 03/06/18 15:20 TIBC 302 mcg/dL (250-450) 03/06/18 15:20 % Saturation 6.29 % 03/06/18 15:20 Transferrin 274 mg/dl (192-382) 03/06/18 15:20 Ferritin 100.5 ng/mL (13.0-400.0) 03/06/18 15:20 Total Bilirubin 0.70 mg/dL (0.1-1.2) 03/05/18 21:31 AST 54 units/L (5-40) H 03/05/18 21:31 ALT 25 units/L (7-56) 03/05/18 21:31 Alkaline Phosphatase 396 units/L (35-129) H 03/05/18 21:31 Lactate Dehydrogenase 343 units/L (91-180) H 03/06/18 15:20 Troponin T < 0.010 ng/mL (0.00-0.029) 03/07/18 16:28 Serum Total Protein 7.4 g/dL (6.1-8.1) 03/06/18 15:20 Total Protein 7.9 g/dL (6.3-8.2) 03/05/18 21:31 Albumin 3.0 g/dL (3.8-4.8) L 03/06/18 15:20 Albumin/Globulin Ratio 0.8 % 03/05/18 21:31 Ayxze-2-Izlwxfiql 0.4 g/dL (0.2-0.3) H 03/06/18 15:20 Rxmyy-1-Gsskshnkm 0.6 g/dL (0.5-0.9) 03/06/18 15:20 Beta Globulins 0.3 g/dL (0.2-0.5) 03/06/18 15:20 Gamma Globulins 2.7 g/dL (0.8-1.7) H 03/06/18 15:20 Abnorm Protein Band 1 see below 03/06/18 15:20 PEP Interpretation see below H 03/06/18 15:20 Vitamin B12 725.0 pg/mL (211-911) 03/06/18 15:20 Folate > 20 ng/mL (7.3-26.0) 03/06/18 15:20 TSH 1.780 mlU/mL (0.270-4.200) 03/07/18 13:19 Free T4 1.26 ng/dL (0.76-1.46) 03/07/18 13:19 T3 (SHANICE) 102 ng/dL (76-181) 03/07/18 13:19 Vancomycin Trough 21.2 ug/mL (5.0-20.0) H 03/08/18 08:48 Immunofix Electrophor see below 03/06/18 15:20 Blood Type B POSITIVE 03/10/18 13:28 Antibody Screen Negative 03/10/18 13:28 Crossmatch See Detail 03/10/18 13:28
--- NOTE | 2018-03-13 09:41 | Hem/Onc Progress Note ---
Assessment and Plan Discussed with patient. Also discussed with Dr. campbell. At this time we will have infectious disease see the patiet to rule out infectious process. This may be related to possibly sarcoidosis. We will check barbara level. Leonard off splenectomy for diagnostic purpose although may need that for therapy purposes Subjective Date of service: 03/13/18 Interval history: Patient feels fair. Bone marrow and liver biopsy showing noncaseating granulomas. Objective - Constitutional Vitals: Last Vital Signs Temp 98.6 F 03/13/18 05:37 Pulse 110 H 03/13/18 05:37 Resp 16 03/13/18 05:37 BP 121/81 03/13/18 05:37 Pulse Ox 95 03/13/18 05:37 General appearance: mild distress Performance status: 2- selfcare, ambulatory - Neck Neck: supple - Respiratory Respiratory effort: Positive: normal Respiratory: bilateral: diminished - Cardiovascular Rhythm: regular - Gastrointestinal General gastrointestinal: Present: soft, splenomegaly - Labs Lab Results: Laboratory Results - last 24 hr 03/13/18 05:58 WBC 2.0 L RBC 3.82 Hgb 8.0 L Hct 27.5 L MCV 72 L MCH 21 L MCHC 29 L RDW 24.9 H Plt Count 248
--- NOTE | 2018-03-13 10:09 | Consultation ---
History of Present Illness - Reason for Consult Consult date: 03/13/18 granuloma Requesting physician: ELIZA KNOX - History of Present Illness 33 y/o female with history of myasthenia gravis now in remission, s/p thymectomy ; admitted on 03/05/18 due to 2 week history of productive cough with white/ yellowish sputum associated with left flank pain. Denies hemoptysis or weight loss. Noted some subjective fever. In the ED, temp 98.1. WBC 1.9, Hg 6.2, plat 298, creat 0.5, alkphos 396. CXR mod LLL infiltrates and pleural effusion. CT chest large heterogenous enhacing mass LUQ ? spleen, subcm hepatic nodules, large left pleural effusion. CT abd diffuse enlarged splenomegaly. Patient underwent liver biopsy on 03/09 which showed granulomatous hepatitis with negative AFB stain, negative malignancy and positive periportal fibrosis stage 1. Underwent thoracenthesis on 03/09 negative for malignancy and positive reactive mesothelial cells. Microbiology: Blood cultures: 03/06 neg Left pleural fluid: ngtd Current Antimicrobials: Zosyn 03/06 Vancomycin 03/06 Previous Antimicrobials: Past History Past Medical History: No medical history (myasthenia gravin diagnosed in 2003 off treatment for a while), other (myasthenia gravis) Past Surgical History: Other (thymectomy) Social history: no significant social history Family history: no significant family history Medications and Allergies Allergies Allergy/AdvReac Type Severity Reaction Status Date / Time magnesium Allergy Unknown Verified 03/05/18 16:16 Home Medications Medication Instructions Recorded Confirmed Last Taken Type RX: No Known Home Medications [No 03/06/18 03/06/18 Unknown History Reported Home Medications] Active Meds: Active Medications Acetaminophen (Tylenol) 650 mg PO Q4H PRN PRN Reason: Pain MILD(1-3)/Fever >100.5/HERBERT Last Admin: 03/09/18 20:43 Dose: 650 mg Benzonatate (Tessalon Perles) 100 mg PO Q8HR THAI Last Admin: 03/12/18 14:09 Dose: 100 mg Guaifenesin (Robitussin) 200 mg PO Q4H PRN PRN Reason: Cough Last Admin: 03/12/18 16:59 Dose: 200 mg Piperacillin Sod/Tazobactam Sod (Zosyn/Ns 4.5gm/100ml) 4.5 gm in 100 mls @ 200 mls/hr IV Q8HR [facility]; Protocol Last Admin: 03/12/18 14:46 Dose: 200 mls/hr Vancomycin HCl (Vancomycin/Ns 1 Gm/250 Ml) 1 gm in 250 mls @ 166.667 mls/hr IV Q12HR THAI Last Admin: 03/12/18 12:25 Dose: 166.667 mls/hr Sodium Chloride (Nacl 0.9% 1000 Ml) 1,000 mls @ 75 mls/hr IV DIRECT THAI Last Admin: 03/13/18 08:30 Dose: 75 mls/hr Morphine Sulfate (Morphine) 2 mg IV Q4H PRN PRN Reason: Pain , Severe (7-10) Last Admin: 03/13/18 08:30 Dose: 2 mg Ondansetron HCl (Zofran) 4 mg IV Q4H PRN PRN Reason: Nausea And Vomiting Last Admin: 03/07/18 20:17 Dose: 4 mg Oxycodone/Acetaminophen (Percocet 5/325) 1 tab PO Q6H PRN PRN Reason: Pain, Moderate (4-6) Last Admin: 03/12/18 17:28 Dose: 1 tab Sodium Chloride (Sodium Chloride Flush Syringe 10 Ml) 10 ml IV BID [facility] Last Admin: 03/12/18 12:25 Dose: 10 ml Sodium Chloride (Sodium Chloride Flush Syringe 10 Ml) 10 ml IV PRN PRN PRN Reason: LINE FLUSH Vancomycin HCl (Vancomycin Pharmacy To Dose) 1 each IV PKCONSULT [facility] Review of Systems All systems: negative (as per HPI) Physical Examination - Physical Exam Narrative exam: General appearance: Alert in NAD, conversant Eyes: anicteric sclerae, moist conjunctivae; no lid-lag; PERRLA HENT: Atraumatic; oropharynx clear Neck: Trachea midline; supple, no thyromegaly or lymphadenopathy Lungs: decreased left BS CV: RRR, no murmurs Abdomen: Soft, non-tender; +hepatosplenomegaly Extremities: No peripheral edema or extremity lymphadenopathy Skin: Normal temperature, turgor and texture; no rash, ulcers or subcutaneous nodules Psych: Appropriate affect, alert and oriented to person, place and time. Neuro: alert and oriented x 3. Moving all extermities Lines: No CVL / PICC - Constitutional Vitals: Vital Signs Temp Pulse Resp BP Pulse Ox 98.6 F 110 H 16 121/81 95 03/13/18 05:37 03/13/18 05:37 03/13/18 05:37 03/13/18 05:37 03/13/18 05:37 Temperature -Last 24 Hours Temperature 98.6 F Temperature 98.7 F Temperature 100.9 F Temperature 98.2 F Results - Labs CBC & Chem 7: 03/13/18 05:58 03/12/18 06:28 Labs: Abnormal lab results 03/13/18 Range/Units 05:58 WBC 2.0 L (4.5-11.0) K/mm3 Hgb 8.0 L (10.1-14.3) gm/dl Hct 27.5 L (30.3-42.9) % MCV 72 L (79-97) fl MCH 21 L (28-32) pg MCHC 29 L (30-34) % RDW 24.9 H (13.2-15.2) % Assessment and Plan Assessment: 1) SIRS: Present on admission, manifested by low grade fever, tachycardia, neutropenia. Etiology most likely hepatitis +/- pleural effusion +/- splenomegaly 2) Pancytopenia, splenomegaly and Granulomatous hepatitis: DDx autoimmune hepatitis, PBC/PSC, sarcoidosis, less likely viral hepatitis, CMV, EBV, AIDS, mycobacterial infection, fungal, drug allergy -CT abd diffuse enlarged splenomegaly. -S/P liver biopsy on 03/09 which showed granulomatous hepatitis with negative AFB stain, negative malignancy and positive periportal fibrosis stage 1. 3) Left pleural effusion: -CXR mod LLL infiltrates and pleural effusion. -CT chest large heterogenous enhacing mass LUQ ? spleen, subcm hepatic nodules, large left pleural effusion -S/p thoracenthesis on 03/09 negative for malignancy and positive reactive mesothelial cells. - 4) Myasthenia gravis now in remission, s/p thymectomy Plan: -stop zosyn and vanco -GI med consult -obtain HIV, CRP, HUSSEIN, ANCA, KURTIS, C3/C4, EBV, CMV, viral hepatitis, copper/ ceruloplasmin levels -general surgery considering splenomegaly in 2 weeks, ok to give her pneumovax, H influenza and meningococcal vaccines (all available inpatient) I am rounding on Friday Thank you for your consultation, will follow up with you. Mimi Esparza MD Infectious Diseases Specialist [facility] ([facility] M [phone] O [phone]
[2018-03-13] MEDS: SODIUM CHLORIDE FLUSH SYRINGE 10 ML IV SCH ×3 (10:17→22:47)
[2018-03-13] MEDS: VANCOMYCIN/NS 1 GM/250 ML 1 GM/250 ML BAG IV SCH ×2 (10:17→10:21)
[2018-03-13 11:14] LABS: Total Cells Counted 100
[2018-03-13 11:15] LABS: Anisocytosis 2+; Hypochromasia 2+; Ovalocytes Few; Platelet Estimate Consistent w Auto; Poikilocytosis 1+; Tear Drop Cells Few
[2018-03-13] MEDS ORDERED: PNEUMOVAX 23 IM ONE (14:07)
[2018-03-13] MEDS ORDERED: [UNRECOGNIZED DRUG - OTHER] IM ONE (14:07)
--- NOTE | 2018-03-13 14:26 | Event Note ---
Date: 03/13/18 Reviewed patient's pathology from bone marrow biopsy, liver biopsy, and pleural fluid analysis. Pathology shows granulomatous disease. The patient has splenomegaly with symptoms of pain, early satiety. She is at risk for splenic rupture or laceration due to the size of her spleen and location even with minimal trauma to the abdominal wall. I discussed this with the patient. Based on this, the patient is a candidate for splenectomy. She understands and all questions answered. I discussed this with Dr. Villagran and he is agreement to proceed with splenectomy. I discussed this with Dr. Mckeon and the patient will receive appropriate vaccinations prior to surgery which is ideally performed 2 weeks post immunization. In addition, I will place a consult to IR for splenic embolization to aid in the future surgery. Will follow up with patient on Friday.
[2018-03-13] MEDS: TESSALON PERLES PO SCH ×4 (15:34→22:47)
[2018-03-13] MEDS: ZOSYN/NS 4.5GM/100ML 4.5 GM/100 ML VIAL IV SCH ×2 (15:34→17:25)
--- NOTE | 2018-03-13 17:11 | Consultation ---
History of Present Illness - Reason for Consult Consult date: 03/13/18 Splenomegaly - History of Present Illness 33 -year-old female with history of myasthenia gravis status post thymectomy with her abdomen growing, especially over the last 6 months who presents to emergency room nonproductive cough for 2 weeks. The patient also endorses left lateral abdominal pain and flank pain/back pain and dyspnea on exertion. She also has tenderness of the right flank with palpation. She also complains of subjective fevers at night and night sweats. She has not had any weight loss but notes early satiety over the last 6 months. She was having clear and yellow emesis over the past several days. Today she feels well. Past History Past Medical History: No medical history (myasthenia gravin diagnosed in 2003 off treatment for a while), other (myasthenia gravis) Past Surgical History: Other (thymectomy) Social history: no significant social history Family history: no significant family history Medications and Allergies Allergies Allergy/AdvReac Type Severity Reaction Status Date / Time magnesium Allergy Unknown Verified 03/05/18 16:16 Home Medications Medication Instructions Recorded Confirmed Last Taken Type No Known Home Medications [No 03/06/18 03/06/18 Unknown History Reported Home Medications] Active Meds: Active Medications Acetaminophen (Tylenol) 650 mg PO Q4H PRN PRN Reason: Pain MILD(1-3)/Fever >100.5/HERBERT Last Admin: 03/09/18 20:43 Dose: 650 mg Benzonatate (Tessalon Perles) 100 mg PO Q8HR THAI Last Admin: 03/13/18 15:35 Dose: Not Given Guaifenesin (Robitussin) 200 mg PO Q4H PRN PRN Reason: Cough Last Admin: 03/12/18 16:59 Dose: 200 mg Piperacillin Sod/Tazobactam Sod (Zosyn/Ns 4.5gm/100ml) 4.5 gm in 100 mls @ 200 mls/hr IV Q8HR [facility]; Protocol Last Admin: 03/13/18 15:34 Dose: Not Given Vancomycin HCl (Vancomycin/Ns 1 Gm/250 Ml) 1 gm in 250 mls @ 166.667 mls/hr IV Q12HR THAI Last Admin: 03/13/18 10:21 Dose: 166.667 mls/hr Sodium Chloride (Nacl 0.9% 1000 Ml) 1,000 mls @ 75 mls/hr IV DIRECT THAI Last Admin: 03/13/18 08:30 Dose: 75 mls/hr Morphine Sulfate (Morphine) 2 mg IV Q4H PRN PRN Reason: Pain , Severe (7-10) Last Admin: 03/13/18 15:28 Dose: 2 mg Ondansetron HCl (Zofran) 4 mg IV Q4H PRN PRN Reason: Nausea And Vomiting Last Admin: 03/07/18 20:17 Dose: 4 mg Oxycodone/Acetaminophen (Percocet 5/325) 1 tab PO Q6H PRN PRN Reason: Pain, Moderate (4-6) Last Admin: 03/12/18 17:28 Dose: 1 tab Sodium Chloride (Sodium Chloride Flush Syringe 10 Ml) 10 ml IV BID THAI Last Admin: 03/13/18 10:21 Dose: 10 ml Sodium Chloride (Sodium Chloride Flush Syringe 10 Ml) 10 ml IV PRN PRN PRN Reason: LINE FLUSH Vancomycin HCl (Vancomycin Pharmacy To Dose) 1 each IV PKCONSULT [facility] Review of Systems All systems: negative (see HPI) Exam - Constitutional Vitals: Temp Pulse Resp BP Pulse Ox 98.6 F 110 H 16 121/81 95 03/13/18 05:37 03/13/18 05:37 03/13/18 05:37 03/13/18 05:37 03/13/18 05:37 General appearance: Present: no acute distress - EENT Eyes: Present: EOM intact ENT: hearing intact - Respiratory Respiratory effort: other (upright, does not lay flat, regular breathing when upright) - Extremities Extremities: pulses intact, normal temperature, normal color - Abdominal General gastrointestinal: Present: tender (left side more tender than right & left flank pain), distended - Psychiatric Psychiatric: appropriate mood/affect, cooperative Results - Labs CBC & Chem 7: 03/13/18 05:58 03/12/18 06:28 Labs: Abnormal lab results 03/13/18 03/13/18 Range/Units 05:58 10:23 WBC 2.0 L (4.5-11.0) K/mm3 Hgb 8.0 L (10.1-14.3) gm/dl Hct 27.5 L (30.3-42.9) % MCV 72 L (79-97) fl MCH 21 L (28-32) pg MCHC 29 L (30-34) % RDW 24.9 H (13.2-15.2) % Seg Neuts % (Manual) 72.0 H (40.0-70.0) % Monocytes % (Manual) 10.0 H (0.0-7.3) % Seg Neutrophils # Man 1.4 L (1.8-7.7) K/mm3 Lymphocytes # (Manual) 0.3 L (1.2-5.4) K/mm3 C-Reactive Protein 1.70 H (0.00-1.30) mg/dL - Imaging and Cardiology CT scan - abdomen: report reviewed, image reviewed Assessment and Plan 33-year-old female with myasthenia gravis status post thymectomy who presents with hepatosplenomegaly and lymphadenopathy with noncaseating granulomas on pathology of the liver and bone marrow with severe splenomegaly and predominantly left upper quadrant pain. The patient is having extensive symptoms relating to mass effect from the spleen as well as pain from the left upper quadrant related to compression of the spleen against adjacent structures. Gen. surgery is planning on splenectomy. Discussed options with patient including medication for underlying granulomatous process, splenectomy with or without interventional radiology assistance, and/or partial splenic artery embolization. Discussed with patient that partial splenic artery embolization require multiple sessions and multiple admissions. If interventional radiology assistance for splenectomy is requested, then I would recommend complete (not partial) embolization of the spleen in the morning immediately prior to splenectomy to devascularize the spleen. This will have to be performed immediately prior to splenectomy as otherwise the pain would be significant . Would recommend medications for granulomatous process prior to any splenic intervention. Please contact us if we can assist further.
[2018-03-13 21:28] LABS: Hepatitis A Antibody IgM Non-Reactive (NonReactive); Hepatitis B Core IgM Non-Reactive (NonReactive); Hepatitis B Surface Antigen Non-Reactive (Negative); Hepatitis C Virus Antibody Non-Reactive (NonReactive)
[2018-03-13] MEDS: PERCOCET 5/325 PO PRN (22:46)
[2018-03-14] MEDS: MORPHINE IV PRN ×4 (01:05→22:01)
[2018-03-14] MEDS: ROBITUSSIN PO PRN ×2 (01:51→06:50)
[2018-03-14] MEDS: NACL 0.9% 1000 ML 1,000 ML IV SCH ×2 (03:21→14:56)
[2018-03-14] MEDS: TESSALON PERLES PO SCH ×3 (06:50→22:00)
[2018-03-14] MEDS: SODIUM CHLORIDE FLUSH SYRINGE 10 ML IV SCH ×2 (09:34→22:00)
[2018-03-14 09:55] LABS: Mean Corpuscular HGB Conc 29 % (30-34); Mean Corpuscular Volume 77 fl (79-97); Platelet Count 263 K/mm3 (140-440); Red Blood Count 3.83 M/mm3 (3.65-5.03)
[2018-03-14 10:07] LABS: Hematocrit 29.3 % (30.3-42.9); Hemoglobin 8.4 gm/dl (10.1-14.3); Mean Corpuscular Hemoglobin 22 pg (28-32); Red Cell Distribution Width 24.8 % (13.2-15.2)
[2018-03-14 11:07] LABS: Eosinophils % (Manual) 0 % (0.0-4.3); Total Cells Counted 100
[2018-03-14 11:08] LABS: Anisocytosis 2+; Hypochromasia 2+; Ovalocytes Few; Poikilocytosis 1+; Tear Drop Cells Few
[2018-03-14 11:09] LABS: Large Platelets Few; Platelet Estimate Cons
--- NOTE | 2018-03-14 13:10 | Progress Note ---
Assessment and Plan Assessment and plan: Patient is a 32 yo woman with a history of myasthenia gravis who pw cough, LBP, sob, dizziness, night sweats and abd pains. * CT chest with IV contrast IMPRESSION: Large heterogeneously enhancing mass in the left upper quadrant of the abdomen, not fully imaged; this could be related to an enlarged spleen or other mass. There are also numerous small subcentimeter hepatic nodules, which could be metastatic. Recommend further evaluation with CT abdomen pelvis. Large layering left pleural effusion. There is adjacent left lung base atelectasis or infiltrate. Findings discussed by telephone with Dr. Wheeler at 9:50 p.m. central standard time on 03/05/2018. * CT abd/pelvis with contrast IMPRESSION: There is diffuse enlargement of the spleen. The differential is extensive and includes benign and malignant etiologies including infectious etiologies as well as lymphoma and leukemia. * 2v CXR IMPRESSION: There is moderate infiltrate/atelectasis with effusion in the left lower lung.. -Abdominal pains due to Splenomegaly : pleural fluid cytology, no malignant cells, BM and liver bx show non caseating granulomas, fup KURTIS level planned for IR emoblization to reduce vascularity followed by Splenectomy -Anemia/leukopenia transfused prbc -Large pleural effusion: sp thoracentesis, fluid analysis shows transudative fluid -Pneumonia, aspiration type: cont abx -Myasthenia gravis by history: currently asymptomatic, sp thymoma, in remission -DVT prophylaxis: scd only due to anemia Acute toxic encephalopathy/confusion per nursing note; was likely due to codeine , was dc, now resolved History Interval history: Review of systems Constitutional: No fevers, no malaise, no joint pains CVS: No chest pain, no orthopnea, no dyspnea on exertion, no pedal edema GI: No abdominal pain, no diarrhea, no vomiting, no constipation Respiratory: No shortness of breath, no wheezing, no coughing Hospitalist Physical - Physical exam Narrative exam: General.: Appears well, no distress, nontoxic HEENT: Moist mucous membranes, extraocular muscles intact, no lymphadenopathy Neck: supple Cardiac: S1-S2 heard Lungs: clear to auscultation bilaterally Abdomen: soft , nontender, distended, bowel sounds positive Extremities: no edema clubbing or cyanosis Skin: no rash or lesions Neurologic: no gross focal deficits Psych: appropriate behavior, appropriate mood, corporative, judgment intact - Constitutional Vitals: Temp Pulse Resp BP Pulse Ox 99.0 F 118 H 20 140/90 98 03/14/18 12:35 03/14/18 12:35 03/14/18 12:35 03/14/18 12:35 03/14/18 12:35 General appearance: Present: no acute distress Results - Labs CBC & Chem 7: 03/14/18 09:02 03/12/18 06:28 Labs: Laboratory Last Values WBC 2.0 K/mm3 (4.5-11.0) L 03/14/18 09:02 RBC 3.83 M/mm3 (3.65-5.03) 03/14/18 09:02 Hgb 8.4 gm/dl (10.1-14.3) L 03/14/18 09:02 Hct 29.3 % (30.3-42.9) L 03/14/18 09:02 MCV 77 fl (79-97) L 03/14/18 09:02 MCH 22 pg (28-32) L 03/14/18 09:02 MCHC 29 % (30-34) L 03/14/18 09:02 RDW 24.8 % (13.2-15.2) H 03/14/18 09:02 Plt Count 263 K/mm3 (140-440) 03/14/18 09:02 Add Manual Diff Complete 03/14/18 09:02 Total Counted 100 03/14/18 09:02 Seg Neuts % (Manual) 87.0 % (40.0-70.0) H 03/14/18 09:02 Band Neutrophils % 0 % 03/14/18 09:02 Lymphocytes % (Manual) 6.0 % (13.4-35.0) L 03/14/18 09:02 Reactive Lymphs % (Man) 0 % 03/14/18 09:02 Monocytes % (Manual) 5.0 % (0.0-7.3) 03/14/18 09:02 Eosinophils % (Manual) 0 % (0.0-4.3) 03/14/18 09:02 Basophils % (Manual) 2.0 % (0.0-1.8) H 03/14/18 09:02 Metamyelocytes % 0 % 03/14/18 09:02 Myelocytes % 0 % 03/14/18 09:02 Promyelocytes % 0 % 03/14/18 09:02 Blast Cells % 0 % 03/14/18 09:02 Nucleated RBC % Not Reportable 03/14/18 09:02 Seg Neutrophils # Man 1.7 K/mm3 (1.8-7.7) L 03/14/18 09:02 Band Neutrophils # 0.0 K/mm3 03/14/18 09:02 Lymphocytes # (Manual) 0.1 K/mm3 (1.2-5.4) L 03/14/18 09:02 Abs React Lymphs (Man) 0.0 K/mm3 03/14/18 09:02 Monocytes # (Manual) 0.1 K/mm3 (0.0-0.8) 03/14/18 09:02 Eosinophils # (Manual) 0.0 K/mm3 (0.0-0.4) 03/14/18 09:02 Basophils # (Manual) 0.0 K/mm3 (0.0-0.1) 03/14/18 09:02 Metamyelocytes # 0.0 K/mm3 03/14/18 09:02 Myelocytes # 0.0 K/mm3 03/14/18 09:02 Promyelocytes # 0.0 K/mm3 03/14/18 09:02 Blast Cells # 0.0 K/mm3 03/14/18 09:02 WBC Morphology Not Reportable 03/14/18 09:02 Hypersegmented Neuts Not Reportable 03/14/18 09:02 Hyposegmented Neuts Not Reportable 03/14/18 09:02 Hypogranular Neuts Not Reportable 03/14/18 09:02 Smudge Cells Not Reportable 03/14/18 09:02 Toxic Granulation Not Reportable 03/14/18 09:02 Toxic Vacuolation Not Reportable 03/14/18 09:02 Dohle Bodies Not Reportable 03/14/18 09:02 Pelger-Huet Anomaly Not Reportable 03/14/18 09:02 Shonna Rods Not Reportable 03/14/18 09:02 Platelet Estimate Cons 03/14/18 09:02 Clumped Platelets Not Reportable 03/14/18 09:02 Plt Clumps, EDTA Not Reportable 03/14/18 09:02 Large Platelets Few 03/14/18 09:02 Giant Platelets Not Reportable 03/14/18 09:02 Platelet Satelliting Not Reportable 03/14/18 09:02 Plt Morphology Comment Not Reportable 03/14/18 09:02 RBC Morphology Not Reportable 03/14/18 09:02 Dimorphic RBCs Not Reportable 03/14/18 09:02 Polychromasia Not Reportable 03/14/18 09:02 Hypochromasia 2+ 03/14/18 09:02 Poikilocytosis 1+ 03/14/18 09:02 Anisocytosis 2+ 03/14/18 09:02 Microcytosis Not Reportable 03/14/18 09:02 Macrocytosis Not Reportable 03/14/18 09:02 Spherocytes Not Reportable 03/14/18 09:02 Pappenheimer Bodies Not Reportable 03/14/18 09:02 Sickle Cells Not Reportable 03/14/18 09:02 Target Cells Not Reportable 03/14/18 09:02 Tear Drop Cells Few 03/14/18 09:02 Ovalocytes Few 03/14/18 09:02 Helmet Cells Not Reportable 03/14/18 09:02 Mandujano-[place] Bodies Not Reportable 03/14/18 09:02 [place] Rings Not Reportable 03/14/18 09:02 Leon Cells Not Reportable 03/14/18 09:02 Bite Cells Not Reportable 03/14/18 09:02 Crenated Cell Not Reportable 03/14/18 09:02 Elliptocytes Few 03/14/18 09:02 Acanthocytes (Spur) Not Reportable 03/14/18 09:02 Rouleaux Not Reportable 03/14/18 09:02 Hemoglobin C Crystals Not Reportable 03/14/18 09:02 Schistocytes Not Reportable 03/14/18 09:02 Malaria parasites Not Reportable 03/14/18 09:02 Percent Retic 1.71 % (0.78-2.58) 03/06/18 15:20 Antonino Bodies Not Reportable 03/14/18 09:02 Hem Pathologist Commnt No 03/14/18 09:02 PT 15.8 Sec. (12.2-14.9) H 03/06/18 15:20 INR 1.19 (0.87-1.13) H 03/06/18 15:20 Sodium 136 mmol/L (137-145) L 03/12/18 06:28 Potassium 4.1 mmol/L (3.6-5.0) 03/12/18 06:28 Chloride 102.6 mmol/L (98-107) 03/12/18 06:28 Carbon Dioxide 20 mmol/L (22-30) L 03/12/18 06:28 Anion Gap 18 mmol/L 03/12/18 06:28 BUN 7 mg/dL (7-17) 03/12/18 06:28 Creatinine 0.5 mg/dL (0.7-1.2) L 03/12/18 06:28 Estimated GFR > 60 ml/min 03/12/18 06:28 BUN/Creatinine Ratio 14 % 03/12/18 06:28 Glucose 97 mg/dL (65-100) 03/12/18 06:28 Uric Acid 5.2 mg/dL (3.5-7.6) 03/06/18 02:13 Calcium 7.6 mg/dL (8.4-10.2) L 03/12/18 06:28 Iron 19 ug/dL (37-170) L 03/06/18 15:20 TIBC 302 mcg/dL (250-450) 03/06/18 15:20 % Saturation 6.29 % 03/06/18 15:20 Transferrin 274 mg/dl (192-382) 03/06/18 15:20 Ferritin 100.5 ng/mL (13.0-400.0) 03/06/18 15:20 Total Bilirubin 0.70 mg/dL (0.1-1.2) 03/05/18 21:31 AST 54 units/L (5-40) H 03/05/18 21:31 ALT 25 units/L (7-56) 03/05/18 21:31 Alkaline Phosphatase 396 units/L (35-129) H 03/05/18 21:31 Lactate Dehydrogenase 343 units/L (91-180) H 03/06/18 15:20 Troponin T < 0.010 ng/mL (0.00-0.029) 03/07/18 16:28 C-Reactive Protein 1.70 mg/dL (0.00-1.30) H 03/13/18 10:23 Serum Total Protein 7.4 g/dL (6.1-8.1) 03/06/18 15:20 Total Protein 7.9 g/dL (6.3-8.2) 03/05/18 21:31 Albumin 3.0 g/dL (3.8-4.8) L 03/06/18 15:20 Albumin/Globulin Ratio 0.8 % 03/05/18 21:31 Jlryb-6-Josnzqlae 0.4 g/dL (0.2-0.3) H 03/06/18 15:20 Zvzip-7-Vsrmbqazk 0.6 g/dL (0.5-0.9) 03/06/18 15:20 Beta Globulins 0.3 g/dL (0.2-0.5) 03/06/18 15:20 Gamma Globulins 2.7 g/dL (0.8-1.7) H 03/06/18 15:20 Abnorm Protein Band 1 see below 03/06/18 15:20 PEP Interpretation see below H 03/06/18 15:20 Vitamin B12 725.0 pg/mL (211-911) 03/06/18 15:20 Folate > 20 ng/mL (7.3-26.0) 03/06/18 15:20 TSH 1.780 mlU/mL (0.270-4.200) 03/07/18 13:19 Free T4 1.26 ng/dL (0.76-1.46) 03/07/18 13:19 T3 (SHANICE) 102 ng/dL (76-181) 03/07/18 13:19 Vancomycin Trough 21.2 ug/mL (5.0-20.0) H 03/08/18 08:48 Immunofix Electrophor see below 03/06/18 15:20 Hepatitis A IgM Ab Non-reactive (NonReactive) 03/13/18 18:46 Hep Bs Antigen Non-reactive (Negative) 03/13/18 18:46 Hep B Core IgM Ab Non-reactive (NonReactive) 03/13/18 18:46 Hepatitis C Antibody Non-reactive (NonReactive) 03/13/18 18:46 HIV 1&2 Antibody Rapid Non react (Non React) 03/13/18 10:23 HIV P24 Antigen Non react (Non React) 03/13/18 10:23 Blood Type B POSITIVE 03/10/18 13:28 Antibody Screen Negative 03/10/18 13:28 Crossmatch See Detail 03/10/18 13:28
--- NOTE | 2018-03-14 14:44 | Hem/Onc Progress Note ---
Assessment and Plan - Patient Problems (1) Abdominal mass Current Visit: Yes Status: Acute Plan to address problem: Plan is for embolization followed up with splenectomy. Needs outpatient follow up. Subjective Date of service: 03/14/18 Interval history: She feels much better. No new complains. Objective - Constitutional Vitals: Last Vital Signs Temp 99.0 F 03/14/18 12:35 Pulse 118 H 03/14/18 12:35 Resp 20 03/14/18 12:35 BP 140/90 03/14/18 12:35 Pulse Ox 98 03/14/18 12:35 Pain Intensity (0-10): denies any pain - EENT Eyes: PERRL ENT: hearing intact Lymph node exam: negative cervical - Neck Neck: supple - Respiratory Respiratory effort: Positive: normal Respiratory: bilateral: CTA - Labs Lab Results: Laboratory Results - last 24 hr 03/13/18 03/14/18 18:46 09:02 WBC 2.0 L RBC 3.83 Hgb 8.4 L Hct 29.3 L MCV 77 L MCH 22 L MCHC 29 L RDW 24.8 H Plt Count 263 Add Manual Diff Complete Total Counted 100 Seg Neuts % (Manual) 87.0 H Band Neutrophils % 0 Lymphocytes % (Manual) 6.0 L Reactive Lymphs % (Man) 0 Monocytes % (Manual) 5.0 Eosinophils % (Manual) 0 Basophils % (Manual) 2.0 H Metamyelocytes % 0 Myelocytes % 0 Promyelocytes % 0 Blast Cells % 0 Nucleated RBC % Not Reportable Seg Neutrophils # Man 1.7 L Band Neutrophils # 0.0 Lymphocytes # (Manual) 0.1 L Abs React Lymphs (Man) 0.0 Monocytes # (Manual) 0.1 Eosinophils # (Manual) 0.0 Basophils # (Manual) 0.0 Metamyelocytes # 0.0 Myelocytes # 0.0 Promyelocytes # 0.0 Blast Cells # 0.0 WBC Morphology Not Reportable Hypersegmented Neuts Not Reportable Hyposegmented Neuts Not Reportable Hypogranular Neuts Not Reportable Smudge Cells Not Reportable Toxic Granulation Not Reportable Toxic Vacuolation Not Reportable Dohle Bodies Not Reportable Pelger-Huet Anomaly Not Reportable Shonna Rods Not Reportable Platelet Estimate Cons Clumped Platelets Not Reportable Plt Clumps, EDTA Not Reportable Large Platelets Few Giant Platelets Not Reportable Platelet Satelliting Not Reportable Plt Morphology Comment Not Reportable RBC Morphology Not Reportable Dimorphic RBCs Not Reportable Polychromasia Not Reportable Hypochromasia 2+ Poikilocytosis 1+ Anisocytosis 2+ Microcytosis Not Reportable Macrocytosis Not Reportable Spherocytes Not Reportable Pappenheimer Bodies Not Reportable Sickle Cells Not Reportable Target Cells Not Reportable Tear Drop Cells Few Ovalocytes Few Helmet Cells Not Reportable [place] Bodies Not Reportable [place] Rings Not Reportable [place] Cells Not Reportable Bite Cells Not Reportable Crenated Cell Not Reportable Elliptocytes Few Acanthocytes (Spur) Not Reportable Rouleaux Not Reportable Hemoglobin C Crystals Not Reportable Schistocytes Not Reportable Malaria parasites Not Reportable Antonino Bodies Not Reportable Hem Pathologist Commnt No Hepatitis A IgM Ab Non-reactive Hep Bs Antigen Non-reactive Hep B Core IgM Ab Non-reactive Hepatitis C Antibody Non-reactive
[2018-03-14] MEDS: PERCOCET 5/325 PO PRN (15:20)
[2018-03-14] MEDS: ZOFRAN IV PRN (22:01)
[2018-03-15] MEDS: PERCOCET 5/325 PO PRN ×3 (00:51→18:03)
[2018-03-15] MEDS: TYLENOL PO PRN ×3 (01:00→23:43)
[2018-03-15] MEDS: NACL 0.9% 1000 ML 1,000 ML IV SCH (05:36)
[2018-03-15] MEDS: TESSALON PERLES PO SCH ×2 (06:37→13:38)
[2018-03-15] MEDS: SODIUM CHLORIDE FLUSH SYRINGE 10 ML IV SCH ×2 (09:18→23:00)
[2018-03-15 10:57] LABS: Hematocrit 26.1 % (30.3-42.9); Hemoglobin 8.1 gm/dl (10.1-14.3); Mean Corpuscular HGB Conc 31 % (30-34); Mean Corpuscular Volume 73 fl (79-97); Platelet Count 253 K/mm3 (140-440); Red Blood Count 3.57 M/mm3 (3.65-5.03)
[2018-03-15 11:04] LABS: Mean Corpuscular Hemoglobin 23 pg (28-32); Red Cell Distribution Width 24.6 % (13.2-15.2)
[2018-03-15 11:54] LABS: Eosinophils % (Manual) 0 % (0.0-4.3); Total Cells Counted 100
[2018-03-15 11:55] LABS: Anisocytosis 2+; Giant Platelets Rare; Hypochromasia 1+; Large Platelets Few; Ovalocytes Few; Platelet Estimate Cons; Poikilocytosis 1+; Tear Drop Cells Few
--- NOTE | 2018-03-15 13:33 | Progress Note ---
Assessment and Plan Assessment and plan: Patient is a 32 yo woman with a history of myasthenia gravis who pw cough, LBP, sob, dizziness, night sweats and abd pains. * CT chest with IV contrast IMPRESSION: Large heterogeneously enhancing mass in the left upper quadrant of the abdomen, not fully imaged; this could be related to an enlarged spleen or other mass. There are also numerous small subcentimeter hepatic nodules, which could be metastatic. Recommend further evaluation with CT abdomen pelvis. Large layering left pleural effusion. There is adjacent left lung base atelectasis or infiltrate. Findings discussed by telephone with Dr. Wheeler at 9:50 p.m. central standard time on 03/05/2018. * CT abd/pelvis with contrast IMPRESSION: There is diffuse enlargement of the spleen. The differential is extensive and includes benign and malignant etiologies including infectious etiologies as well as lymphoma and leukemia. * 2v CXR IMPRESSION: There is moderate infiltrate/atelectasis with effusion in the left lower lung.. -Abdominal pains due to Splenomegaly : pleural fluid cytology, no malignant cells, BM and liver bx show non caseating granulomas, fup KURTIS level planned for IR emoblization to reduce vascularity followed by Splenectomy which will be done 2 weeks after vaccination for encapsulated organisms -c/o sob, has hypoxia on ambulation; repeat cxr -Acute hypoxic respiratory failure; likely due to pleural effusion, continue oxygen prn, fup cxr -Anemia/leukopenia transfused prbc -Large pleural effusion: sp thoracentesis, fluid analysis shows transudative fluid -Pneumonia, aspiration type: cont abx -Myasthenia gravis by history: currently asymptomatic, sp thymoma, in remission -DVT prophylaxis: scd only due to anemia Acute toxic encephalopathy/confusion per nursing note; was likely due to codeine , was dc, now resolved History Interval history: Review of systems Constitutional: No fevers, no malaise, no joint pains CVS: No chest pain, no orthopnea, no dyspnea on exertion, no pedal edema GI: No abdominal pain, no diarrhea, no vomiting, no constipation Respiratory: c/o sob, no wheezing, no coughing Hospitalist Physical - Physical exam Narrative exam: General.: Appears well, no distress, nontoxic HEENT: Moist mucous membranes, extraocular muscles intact, no lymphadenopathy Neck: supple Cardiac: S1-S2 heard Lungs: diminished left lung Abdomen: soft , nontender, distended, bowel sounds positive Extremities: no edema clubbing or cyanosis Skin: no rash or lesions Neurologic: no gross focal deficits Psych: appropriate behavior, appropriate mood, corporative, judgment intact - Constitutional Vitals: Temp Pulse Resp BP Pulse Ox 97.7 F 107 H 16 127/86 99 03/15/18 12:11 03/15/18 12:11 03/15/18 12:11 03/15/18 12:11 03/15/18 12:11 General appearance: Present: no acute distress Results - Labs CBC & Chem 7: 03/17/18 06:01 03/12/18 06:28 Labs: Laboratory Last Values WBC 2.0 K/mm3 (4.5-11.0) L 03/15/18 09:52 RBC 3.57 M/mm3 (3.65-5.03) L 03/15/18 09:52 Hgb 8.1 gm/dl (10.1-14.3) L 03/15/18 09:52 Hct 26.1 % (30.3-42.9) L 03/15/18 09:52 MCV 73 fl (79-97) L 03/15/18 09:52 MCH 23 pg (28-32) L 03/15/18 09:52 MCHC 31 % (30-34) 03/15/18 09:52 RDW 24.6 % (13.2-15.2) H 03/15/18 09:52 Plt Count 253 K/mm3 (140-440) 03/15/18 09:52 Add Manual Diff Complete 03/15/18 09:52 Total Counted 100 03/15/18 09:52 Seg Neuts % (Manual) 83.0 % (40.0-70.0) H 03/15/18 09:52 Band Neutrophils % 0 % 03/15/18 09:52 Lymphocytes % (Manual) 7.0 % (13.4-35.0) L 03/15/18 09:52 Reactive Lymphs % (Man) 1.0 % 03/15/18 09:52 Monocytes % (Manual) 8.0 % (0.0-7.3) H 03/15/18 09:52 Eosinophils % (Manual) 0 % (0.0-4.3) 03/15/18 09:52 Basophils % (Manual) 1.0 % (0.0-1.8) 03/15/18 09:52 Metamyelocytes % 0 % 03/15/18 09:52 Myelocytes % 0 % 03/15/18 09:52 Promyelocytes % 0 % 03/15/18 09:52 Blast Cells % 0 % 03/15/18 09:52 Nucleated RBC % Not Reportable 03/15/18 09:52 Seg Neutrophils # Man 1.7 K/mm3 (1.8-7.7) L 03/15/18 09:52 Band Neutrophils # 0.0 K/mm3 03/15/18 09:52 Lymphocytes # (Manual) 0.1 K/mm3 (1.2-5.4) L 03/15/18 09:52 Abs React Lymphs (Man) 0.0 K/mm3 03/15/18 09:52 Monocytes # (Manual) 0.2 K/mm3 (0.0-0.8) 03/15/18 09:52 Eosinophils # (Manual) 0.0 K/mm3 (0.0-0.4) 03/15/18 09:52 Basophils # (Manual) 0.0 K/mm3 (0.0-0.1) 03/15/18 09:52 Metamyelocytes # 0.0 K/mm3 03/15/18 09:52 Myelocytes # 0.0 K/mm3 03/15/18 09:52 Promyelocytes # 0.0 K/mm3 03/15/18 09:52 Blast Cells # 0.0 K/mm3 03/15/18 09:52 WBC Morphology Not Reportable 03/15/18 09:52 Hypersegmented Neuts Not Reportable 03/15/18 09:52 Hyposegmented Neuts Not Reportable 03/15/18 09:52 Hypogranular Neuts Not Reportable 03/15/18 09:52 Smudge Cells Not Reportable 03/15/18 09:52 Toxic Granulation Not Reportable 03/15/18 09:52 Toxic Vacuolation Not Reportable 03/15/18 09:52 Dohle Bodies Not Reportable 03/15/18 09:52 Pelger-Huet Anomaly Not Reportable 03/15/18 09:52 Shonna Rods Not Reportable 03/15/18 09:52 Platelet Estimate Cons 03/15/18 09:52 Clumped Platelets Not Reportable 03/15/18 09:52 Plt Clumps, EDTA Not Reportable 03/15/18 09:52 Large Platelets Few 03/15/18 09:52 Giant Platelets Rare 03/15/18 09:52 Platelet Satelliting Not Reportable 03/15/18 09:52 Plt Morphology Comment Not Reportable 03/15/18 09:52 RBC Morphology Not Reportable 03/15/18 09:52 Dimorphic RBCs Not Reportable 03/15/18 09:52 Polychromasia Not Reportable 03/15/18 09:52 Hypochromasia 1+ 03/15/18 09:52 Poikilocytosis 1+ 03/15/18 09:52 Anisocytosis 2+ 03/15/18 09:52 Microcytosis Not Reportable 03/15/18 09:52 Macrocytosis Not Reportable 03/15/18 09:52 Spherocytes Not Reportable 03/15/18 09:52 Pappenheimer Bodies Not Reportable 03/15/18 09:52 Sickle Cells Not Reportable 03/15/18 09:52 Target Cells Not Reportable 03/15/18 09:52 Tear Drop Cells Few 03/15/18 09:52 Ovalocytes Few 03/15/18 09:52 Helmet Cells Not Reportable 03/15/18 09:52 [place] Bodies Not Reportable 03/15/18 09:52 [place] Rings Not Reportable 03/15/18 09:52 Leon Cells Not Reportable 03/15/18 09:52 Bite Cells Not Reportable 03/15/18 09:52 Crenated Cell Not Reportable 03/15/18 09:52 Elliptocytes Few 03/15/18 09:52 Acanthocytes (Spur) Not Reportable 03/15/18 09:52 Rouleaux Not Reportable 03/15/18 09:52 Hemoglobin C Crystals Not Reportable 03/15/18 09:52 Schistocytes Not Reportable 03/15/18 09:52 Malaria parasites Not Reportable 03/15/18 09:52 Percent Retic 1.71 % (0.78-2.58) 03/06/18 15:20 Antonino Bodies Not Reportable 03/15/18 09:52 Hem Pathologist Commnt No 03/15/18 09:52 PT 15.8 Sec. (12.2-14.9) H 03/06/18 15:20 INR 1.19 (0.87-1.13) H 03/06/18 15:20 Sodium 136 mmol/L (137-145) L 03/12/18 06:28 Potassium 4.1 mmol/L (3.6-5.0) 03/12/18 06:28 Chloride 102.6 mmol/L (98-107) 03/12/18 06:28 Carbon Dioxide 20 mmol/L (22-30) L 03/12/18 06:28 Anion Gap 18 mmol/L 03/12/18 06:28 BUN 7 mg/dL (7-17) 03/12/18 06:28 Creatinine 0.5 mg/dL (0.7-1.2) L 03/12/18 06:28 Estimated GFR > 60 ml/min 03/12/18 06:28 BUN/Creatinine Ratio 14 % 03/12/18 06:28 Glucose 97 mg/dL (65-100) 03/12/18 06:28 Uric Acid 5.2 mg/dL (3.5-7.6) 03/06/18 02:13 Calcium 7.6 mg/dL (8.4-10.2) L 03/12/18 06:28 Iron 19 ug/dL (37-170) L 03/06/18 15:20 TIBC 302 mcg/dL (250-450) 03/06/18 15:20 % Saturation 6.29 % 03/06/18 15:20 Transferrin 274 mg/dl (192-382) 03/06/18 15:20 Ferritin 100.5 ng/mL (13.0-400.0) 03/06/18 15:20 Total Bilirubin 0.70 mg/dL (0.1-1.2) 03/05/18 21:31 AST 54 units/L (5-40) H 03/05/18 21:31 ALT 25 units/L (7-56) 03/05/18 21:31 Alkaline Phosphatase 396 units/L (35-129) H 03/05/18 21:31 Lactate Dehydrogenase 343 units/L (91-180) H 03/06/18 15:20 Troponin T < 0.010 ng/mL (0.00-0.029) 03/07/18 16:28 C-Reactive Protein 1.70 mg/dL (0.00-1.30) H 03/13/18 10:23 Serum Total Protein 7.4 g/dL (6.1-8.1) 03/06/18 15:20 Total Protein 7.9 g/dL (6.3-8.2) 03/05/18 21:31 Albumin 3.0 g/dL (3.8-4.8) L 03/06/18 15:20 Albumin/Globulin Ratio 0.8 % 03/05/18 21:31 Qblid-0-Njanvazye 0.4 g/dL (0.2-0.3) H 03/06/18 15:20 Vmdma-5-Nkiflbyvk 0.6 g/dL (0.5-0.9) 03/06/18 15:20 Beta Globulins 0.3 g/dL (0.2-0.5) 03/06/18 15:20 Gamma Globulins 2.7 g/dL (0.8-1.7) H 03/06/18 15:20 Abnorm Protein Band 1 see below 03/06/18 15:20 PEP Interpretation see below H 03/06/18 15:20 Vitamin B12 725.0 pg/mL (211-911) 03/06/18 15:20 Folate > 20 ng/mL (7.3-26.0) 03/06/18 15:20 TSH 1.780 mlU/mL (0.270-4.200) 03/07/18 13:19 Free T4 1.26 ng/dL (0.76-1.46) 03/07/18 13:19 T3 (SHANICE) 102 ng/dL (76-181) 03/07/18 13:19 Vancomycin Trough 21.2 ug/mL (5.0-20.0) H 03/08/18 08:48 Immunofix Electrophor see below 03/06/18 15:20 Hepatitis A IgM Ab Non-reactive (NonReactive) 03/13/18 18:46 Hep Bs Antigen Non-reactive (Negative) 03/13/18 18:46 Hep B Core IgM Ab Non-reactive (NonReactive) 03/13/18 18:46 Hepatitis C Antibody Non-reactive (NonReactive) 03/13/18 18:46 HIV 1&2 Antibody Rapid Non react (Non React) 03/13/18 10:23 HIV P24 Antigen Non react (Non React) 03/13/18 10:23 Blood Type B POSITIVE 03/10/18 13:28 Antibody Screen Negative 03/10/18 13:28 Crossmatch See Detail 03/10/18 13:28
--- NOTE | 2018-03-15 17:20 | Hem/Onc Progress Note ---
Assessment and Plan 1. non-caseating granulomas, hepatosplenomegaly- plan is for splenic arterial embolization and splenectomy Subjective Date of service: 03/15/18 Interval history: c/o "crackling" in lungs overnight Objective - Constitutional Vitals: Last Vital Signs Temp 97.7 F 03/15/18 12:11 Pulse 107 H 03/15/18 12:11 Resp 16 03/15/18 12:11 BP 127/86 03/15/18 12:11 Pulse Ox 99 03/15/18 12:11 General appearance: no acute distress - EENT ENT: hearing intact - Neck Neck: supple - Respiratory Respiratory: bilateral: other (tachypnea, mildly increased WOB) - Cardiovascular Details: tachycardic - Integumentary Integumentary: warm, dry - Labs Lab Results: Laboratory Results - last 24 hr 03/15/18 09:52 WBC 2.0 L RBC 3.57 L Hgb 8.1 L Hct 26.1 L MCV 73 L MCH 23 L MCHC 31 RDW 24.6 H Plt Count 253 Add Manual Diff Complete Total Counted 100 Seg Neuts % (Manual) 83.0 H Band Neutrophils % 0 Lymphocytes % (Manual) 7.0 L Reactive Lymphs % (Man) 1.0 Monocytes % (Manual) 8.0 H Eosinophils % (Manual) 0 Basophils % (Manual) 1.0 Metamyelocytes % 0 Myelocytes % 0 Promyelocytes % 0 Blast Cells % 0 Nucleated RBC % Not Reportable Seg Neutrophils # Man 1.7 L Band Neutrophils # 0.0 Lymphocytes # (Manual) 0.1 L Abs React Lymphs (Man) 0.0 Monocytes # (Manual) 0.2 Eosinophils # (Manual) 0.0 Basophils # (Manual) 0.0 Metamyelocytes # 0.0 Myelocytes # 0.0 Promyelocytes # 0.0 Blast Cells # 0.0 WBC Morphology Not Reportable Hypersegmented Neuts Not Reportable Hyposegmented Neuts Not Reportable Hypogranular Neuts Not Reportable Smudge Cells Not Reportable Toxic Granulation Not Reportable Toxic Vacuolation Not Reportable Dohle Bodies Not Reportable Pelger-Huet Anomaly Not Reportable Shonna Rods Not Reportable Platelet Estimate Cons Clumped Platelets Not Reportable Plt Clumps, EDTA Not Reportable Large Platelets Few Giant Platelets Rare Platelet Satelliting Not Reportable Plt Morphology Comment Not Reportable RBC Morphology Not Reportable Dimorphic RBCs Not Reportable Polychromasia Not Reportable Hypochromasia 1+ Poikilocytosis 1+ Anisocytosis 2+ Microcytosis Not Reportable Macrocytosis Not Reportable Spherocytes Not Reportable Pappenheimer Bodies Not Reportable Sickle Cells Not Reportable Target Cells Not Reportable Tear Drop Cells Few Ovalocytes Few Helmet Cells Not Reportable [place] Bodies Not Reportable [place] Rings Not Reportable [place] Cells Not Reportable Bite Cells Not Reportable Crenated Cell Not Reportable Elliptocytes Few Acanthocytes (Spur) Not Reportable Rouleaux Not Reportable Hemoglobin C Crystals Not Reportable Schistocytes Not Reportable Malaria parasites Not Reportable Antonino Bodies Not Reportable Hem Pathologist Commnt No
[2018-03-15] MEDS: ROBITUSSIN PO PRN ×2 (18:02→23:42)
[2018-03-16] MEDS: MORPHINE IV PRN ×3 (00:30→23:33)
[2018-03-16] MEDS: TESSALON PERLES PO SCH ×4 (00:50→22:09)
[2018-03-16] MEDS: PERCOCET 5/325 PO PRN ×3 (01:36→18:39)
[2018-03-16] MEDS: ROBITUSSIN PO PRN ×2 (06:42→18:38)
[2018-03-16 06:57] LABS: Hematocrit 27.5 % (30.3-42.9); Hemoglobin 8.3 gm/dl (10.1-14.3); Mean Corpuscular HGB Conc 30 % (30-34); Mean Corpuscular Volume 73 fl (79-97); Platelet Count 282 K/mm3 (140-440); Red Blood Count 3.78 M/mm3 (3.65-5.03)
[2018-03-16 07:02] LABS: Mean Corpuscular Hemoglobin 22 pg (28-32); Red Cell Distribution Width 24.4 % (13.2-15.2)
--- NOTE | 2018-03-16 09:07 | Progress Note ---
Assessment and Plan 33 yo F with 1. splenomegaly, symptomatic 2. noncaseating granulomas 3. anemia Plan; 1. will give immunizations for pneumococcus, meningitis, and haemophilus today and plan for surgery in 2 weeks. 2. In discussion with Dr. Chaudhari (IR), will be best to time complete splenic embolization just prior to surgery, ideally will perform day before surgery 3. D/W case with hematology Dr. Villagran 4. prn pain control 5. ok to dc from surgery standpoint. Pt to return to ER if she is having worsening pain, n/v. Will plan for splenectomy and splenic artery embolization in 2 weeks. Thank you for this consultation, please call with questions or concerns. Objective Vital Signs - 12hr 03/15/18 03/15/18 03/16/18 22:00 23:57 04:28 Temperature 99.0 F 97.9 F Pulse Rate 122 H 120 H Pulse Rate [ 120 H Left Radial] Respiratory 18 20 18 Rate Blood Pressure 114/84 119/79 O2 Sat by Pulse 99 96 Oximetry - Labs 03/16/18 05:43 03/12/18 06:28
--- NOTE | 2018-03-16 09:47 | Hem/Onc Progress Note ---
Assessment and Plan Discussed with . Splenectomy in a couple weeks. Splenic artery embolization prior to the procedure. Timing of the embolization is being determined. Next Patient is having shortness of breath and the fact that she had a pleural effusion Will order another chest x-ray. Subjective Date of service: 03/16/18 Interval history: . Bone marrow and liver biopsy showing noncaseating granulomas. Complains of shortness of breath on exertion. Objective - Constitutional Vitals: Last Vital Signs Temp 97.9 F 03/16/18 04:28 Pulse 120 H 03/16/18 04:28 Resp 18 03/16/18 04:28 BP 119/79 03/16/18 04:28 Pulse Ox 96 03/16/18 04:28 General appearance: mild distress Performance status: 3-limited selfcare - Neck Neck: supple - Respiratory Respiratory: left: diminished - Cardiovascular Rhythm: regular Extremities: No edema - Gastrointestinal General gastrointestinal: Present: splenomegaly - Labs Lab Results: Laboratory Results - last 24 hr 03/13/18 03/13/18 03/15/18 10:23 10:23 09:52 WBC 2.0 L RBC 3.57 L Hgb 8.1 L Hct 26.1 L MCV 73 L MCH 23 L MCHC 31 RDW 24.6 H Plt Count 253 Add Manual Diff Complete Total Counted 100 Seg Neuts % (Manual) 83.0 H Band Neutrophils % 0 Lymphocytes % (Manual) 7.0 L Reactive Lymphs % (Man) 1.0 Monocytes % (Manual) 8.0 H Eosinophils % (Manual) 0 Basophils % (Manual) 1.0 Metamyelocytes % 0 Myelocytes % 0 Promyelocytes % 0 Blast Cells % 0 Nucleated RBC % Not Reportable Seg Neutrophils # Man 1.7 L Band Neutrophils # 0.0 Lymphocytes # (Manual) 0.1 L Abs React Lymphs (Man) 0.0 Monocytes # (Manual) 0.2 Eosinophils # (Manual) 0.0 Basophils # (Manual) 0.0 Metamyelocytes # 0.0 Myelocytes # 0.0 Promyelocytes # 0.0 Blast Cells # 0.0 WBC Morphology Not Reportable Hypersegmented Neuts Not Reportable Hyposegmented Neuts Not Reportable Hypogranular Neuts Not Reportable Smudge Cells Not Reportable Toxic Granulation Not Reportable Toxic Vacuolation Not Reportable Dohle Bodies Not Reportable Pelger-Huet Anomaly Not Reportable Shonna Rods Not Reportable Platelet Estimate Cons Clumped Platelets Not Reportable Plt Clumps, EDTA Not Reportable Large Platelets Few Giant Platelets Rare Platelet Satelliting Not Reportable Plt Morphology Comment Not Reportable RBC Morphology Not Reportable Dimorphic RBCs Not Reportable Polychromasia Not Reportable Hypochromasia 1+ Poikilocytosis 1+ Anisocytosis 2+ Microcytosis Not Reportable Macrocytosis Not Reportable Spherocytes Not Reportable Pappenheimer Bodies Not Reportable Sickle Cells Not Reportable Target Cells Not Reportable Tear Drop Cells Few Ovalocytes Few Helmet Cells Not Reportable Mandujano-Matlacha Bodies Not Reportable [place] Rings Not Reportable Leon Cells Not Reportable Bite Cells Not Reportable Crenated Cell Not Reportable Elliptocytes Few Acanthocytes (Spur) Not Reportable Rouleaux Not Reportable Hemoglobin C Crystals Not Reportable Schistocytes Not Reportable Malaria parasites Not Reportable Antonino Bodies Not Reportable Hem Pathologist Commnt No Complement C3 112 Complement C4 03/16/18 05:43 WBC 2.3 L RBC 3.78 Hgb 8.3 L Hct 27.5 L MCV 73 L MCH 22 L MCHC 30 RDW 24.4 H Plt Count 282 Add Manual Diff Total Counted Seg Neuts % (Manual) Band Neutrophils % Lymphocytes % (Manual) Reactive Lymphs % (Man) Monocytes % (Manual) Eosinophils % (Manual) Basophils % (Manual) Metamyelocytes % Myelocytes % Promyelocytes % Blast Cells % Nucleated RBC % Seg Neutrophils # Man Band Neutrophils # Lymphocytes # (Manual) Abs React Lymphs (Man) Monocytes # (Manual) Eosinophils # (Manual) Basophils # (Manual) Metamyelocytes # Myelocytes # Promyelocytes # Blast Cells # WBC Morphology Hypersegmented Neuts Hyposegmented Neuts Hypogranular Neuts Smudge Cells Toxic Granulation Toxic Vacuolation Dohle Bodies Pelger-Huet Anomaly Shonna Rods Platelet Estimate Clumped Platelets Plt Clumps, EDTA Large Platelets Giant Platelets Platelet Satelliting Plt Morphology Comment RBC Morphology Dimorphic RBCs Polychromasia Hypochromasia Poikilocytosis Anisocytosis Microcytosis Macrocytosis Spherocytes Pappenheimer Bodies Sickle Cells Target Cells Tear Drop Cells Ovalocytes Helmet Cells Mandujano-Matlacha Bodies [place] Rings Leon Cells Bite Cells Crenated Cell Elliptocytes Acanthocytes (Spur) Rouleaux Hemoglobin C Crystals Schistocytes Malaria parasites Antonino Bodies Hem Pathologist Commnt Complement C3 Complement C4
[2018-03-16] MEDS: SODIUM CHLORIDE FLUSH SYRINGE 10 ML IV SCH ×2 (10:00→22:10)
--- NOTE | 2018-03-16 10:20 | Discharge Summary ---
<ALISA LOO - Last Filed: 03/16/18 10:17> Providers - Providers Date of Admission: 03/06/18 03:36 Attending physician: ALISA LOO MD 03/06/18 06:48 Consult to Physician [CONS] Routine Comment: Consulting Provider: ELIZA KNOX Physician Instructions: Reason For Exam: splenomegly 03/13/18 14:11 Consult to Interventional Radiology [CONS] Routine Consulting Provider: ISHAN CORBIN Reason For Exam: splenic embolization for splenomegaly Place consult to:: dr. corbin Notified:: office Phone number called:: Was contact made?: Yes If yes, spoke with:: luis Time called:: 14:51 Primary care physician: ACTUARIAL MANAGER Hospitalization Condition: Stable Disposition: DC-30 STILL A PATIENT Core Measure Documentation - Palliative Care Palliative Care/ Comfort Measures: Not Applicable Exam - Constitutional Vitals: Temp Pulse Resp BP Pulse Ox 97.9 F 120 H 18 119/79 96 03/16/18 04:28 03/16/18 04:28 03/16/18 04:28 03/16/18 04:28 03/16/18 04:28 Plan Follow up with: PRIMARY CARE, [Primary Care Provider] - 3-5 Days RUDDY NOLASCO DO [Staff Physician] - 7 Days Forms: Accompanied Note Prescriptions: Benzonatate [Tessalon Perles] 100 mg PO Q8HR #30 capsule guaiFENesin [Robitussin] 200 mg PO Q4H PRN #1 bottle PRN Reason: Cough Multivitamin with Iron [Multivitamins with Iron] 1 each PO DAILY #30 tablet oxyCODONE /ACETAMINOPHEN [Percocet 5/325 mg] 1 tab PO Q6H PRN #20 tablet PRN Reason: Pain, Moderate (4-6) <RUDDY NOLASCO - Last Filed: 03/16/18 10:48> Providers - Providers Date of Admission: 03/06/18 03:36 Attending physician: ALISA LOO MD 03/06/18 06:48 Consult to Physician [CONS] Routine Comment: Consulting Provider: ELIZA KNOX Physician Instructions: Reason For Exam: splenomegly 03/13/18 14:11 Consult to Interventional Radiology [CONS] Routine Consulting Provider: ISHAN CORBIN Reason For Exam: splenic embolization for splenomegaly Place consult to:: dr. corbin Notified:: office Phone number called:: Was contact made?: Yes If yes, spoke with:: luis Time called:: 14:51 Primary care physician: ACTUARIAL MANAGER Exam - Constitutional Vitals: Temp Pulse Resp BP Pulse Ox 97.9 F 120 H 18 119/79 96 03/16/18 04:28 03/16/18 04:28 03/16/18 04:28 03/16/18 04:28 03/16/18 04:28 Plan Activity: other (avoid any strenuous activity or activity that requires contact sports.)
[2018-03-16] MEDS ORDERED: ACTHIB IM ONE (12:00)
[2018-03-16] MEDS ORDERED: PNEUMOVAX 23 IM ONE (12:00)
[2018-03-16] MEDS ORDERED: [UNRECOGNIZED DRUG - OTHER] IM ONE (12:00)
--- NOTE | 2018-03-16 12:58 | XRay Report ---
ROUTINE CHEST, TWO VIEWS: HISTORY: Fever, shortness of breath. Compared to 03/09/18. A very large left pleural effusion has developed which opacifies the left hemithorax. The left lung is completely compressed with mediastinal shift to the right. The right lung is within normal limits. Heart size is grossly normal. IMPRESSION: Large left pleural effusion which compresses the left lung.
--- NOTE | 2018-03-16 14:54 | Progress Note ---
Assessment and Plan 3 yo F with 1. splenomegaly, symptomatic 2. noncaseating granulomas 3. anemia 4. large left pleural effusion Plan; 1. Immunizations for pneumococcus, meningitis, and haemophilus given today, plan for surgery in 2 weeks. 2. Will plan on splenic embolization day before surgery - d/w Dr. Chaudhari last week 3. D/W case with hematology 4. prn pain control 5. ok to dc from surgery standpoint. Pt to return to ER if she is having worsening pain, n/v. Will plan for splenectomy and splenic artery embolization in 2 weeks. Thank you for this consultation, please call with questions or concerns. Subjective Date of service: 03/16/18 Narrative: Pt seen and examined. She c/o dyspnea with walking a few steps to and from bathroom today. No f/c. No n/v. Tolerating small meals. +LUQ discomfort. Objective Vital Signs - 12hr 03/16/18 03/16/18 04:28 12:38 Temperature 97.9 F 98.4 F Pulse Rate 120 H 139 H Respiratory 18 20 Rate Blood Pressure 119/79 139/91 O2 Sat by Pulse 96 95 Oximetry - General physical appearance Narrative Exam: Gen: AAOx3. NAD CV: S1, S2+ Resp: even and unlabored Abd: soft, mildly distended, NT Ext: no c/c/e - Labs 03/16/18 05:43 03/12/18 06:28
[2018-03-16 15:12] LABS: Anisocytosis 2+; Total Cells Counted 100
[2018-03-16 15:13] LABS: Large Platelets Few; Ovalocytes 1+; Platelet Estimate Cons; Poikilocytosis 2+; Tear Drop Cells Few
--- NOTE | 2018-03-16 15:26 | Progress Note ---
Assessment and Plan Patient will be brought to the [facility] tomorrow for planned placement of tunneled left chest tube which she can be discharged home with. Subjective Date of service: 03/16/18 Principal diagnosis: splenomegaly Interval history: Patient has developed recurrent massive left pleural effusion which will require drainage. Consulted for placement of Pleurx drainage catheter. Patient sitting upright breathing comfortably. Objective - Constitutional Vitals: Vital Signs - 12hr 03/16/18 03/16/18 04:28 12:38 Temperature 97.9 F 98.4 F Pulse Rate 120 H 139 H Respiratory 18 20 Rate Blood Pressure 119/79 139/91 O2 Sat by Pulse 96 95 Oximetry General appearance: Present: mild distress - EENT Eyes: PERRL ENT: hearing intact - Neck Neck: supple - Respiratory Respiratory effort: normal - Breasts Breasts: deferred Extremities: no ischemia - Gastrointestinal General gastrointestinal: Present: deferred Rectal Exam: deferred - Genitourinary Female genitourinary: deferred - Neurologic Neurologic: CNII-XII intact, focal deficits - Psychiatric Psychiatric: appropriate mood/affect, cooperative - Labs CBC & Chem 7: 03/16/18 05:43 03/12/18 06:28 Labs: Abnormal lab results 03/16/18 Range/Units 05:43 WBC 2.3 L (4.5-11.0) K/mm3 Hgb 8.3 L (10.1-14.3) gm/dl Hct 27.5 L (30.3-42.9) % MCV 73 L (79-97) fl MCH 22 L (28-32) pg RDW 24.4 H (13.2-15.2) % Monocytes % (Manual) 9.0 H (0.0-7.3) % Basophils % (Manual) 3.0 H (0.0-1.8) % Seg Neutrophils # Man 1.4 L (1.8-7.7) K/mm3 Lymphocytes # (Manual) 0.5 L (1.2-5.4) K/mm3
[2018-03-16 19:31] LABS: Myeloperoxidase Antibody <1.0 AI (<1.0)
[2018-03-16 21:59] LABS: ANA Screen, IFA Negative (Negative)
[2018-03-17] MEDS: MORPHINE IV PRN (05:36)
[2018-03-17 06:29] LABS: Hematocrit 28.5 % (30.3-42.9); Hemoglobin 8.8 gm/dl (10.1-14.3); Mean Corpuscular HGB Conc 31 % (30-34); Mean Corpuscular Volume 72 fl (79-97); Platelet Count 336 K/mm3 (140-440); Red Blood Count 3.98 M/mm3 (3.65-5.03)
[2018-03-17 06:44] LABS: Mean Corpuscular Hemoglobin 22 pg (28-32)
[2018-03-17 06:45] LABS: Red Cell Distribution Width 24.6 % (13.2-15.2)
--- NOTE | 2018-03-17 06:55 | Event Note ---
Date: 03/16/18 pl effusion- d/w dr ennis. will get pulm to see for sarcoidosis.D/w dr baker who will see pt.
--- NOTE | 2018-03-17 09:50 | Progress Note ---
Assessment and Plan Assessment and plan: Patient is a 32 yo woman with a history of myasthenia gravis who pw cough, LBP, sob, dizziness, night sweats and abd pains. * CT chest with IV contrast IMPRESSION: Large heterogeneously enhancing mass in the left upper quadrant of the abdomen, not fully imaged; this could be related to an enlarged spleen or other mass. There are also numerous small subcentimeter hepatic nodules, which could be metastatic. Recommend further evaluation with CT abdomen pelvis. Large layering left pleural effusion. There is adjacent left lung base atelectasis or infiltrate. Findings discussed by telephone with Dr. Wheeler at 9:50 p.m. central standard time on 03/05/2018. * CT abd/pelvis with contrast IMPRESSION: There is diffuse enlargement of the spleen. The differential is extensive and includes benign and malignant etiologies including infectious etiologies as well as lymphoma and leukemia. * 2v CXR IMPRESSION: There is moderate infiltrate/atelectasis with effusion in the left lower lung.. -Abdominal pains due to Splenomegaly : pleural fluid cytology, no malignant cells, BM and liver bx show non caseating granulomas, fup KURTIS level planned for IR emoblization to reduce vascularity followed by Splenectomy which will be done 2 weeks after vaccination for encapsulated organisms -Non caseating graunolma in Liver and bone marrow and recurrent lung effusion; concern for Sarcoidosis? Pulm has been consulted -c/o sob, has hypoxia on ambulation; due to recurrent Effusion -Acute hypoxic respiratory failure; likely due to pleural effusion, continue oxygen prn, fup cxr -Anemia/leukopenia transfused prbc -Large pleural effusion: sp thoracentesis, fluid analysis shows transudative fluid, has now recurred, consult IR for pleur-X cath -Pneumonia, aspiration type: cont abx -Myasthenia gravis by history: currently asymptomatic, sp thymoma, in remission -DVT prophylaxis: scd only due to anemia Acute toxic encephalopathy/confusion per nursing note; was likely due to codeine , was dc, now resolved History Interval history: Review of systems Constitutional: No fevers, no malaise, no joint pains CVS: No chest pain, no orthopnea, no dyspnea on exertion, no pedal edema GI: No abdominal pain, no diarrhea, no vomiting, no constipation Respiratory: c/o sob, no wheezing, no coughing Hospitalist Physical - Physical exam Narrative exam: General.: Appears well, no distress, nontoxic HEENT: Moist mucous membranes, extraocular muscles intact, no lymphadenopathy Neck: supple Cardiac: S1-S2 heard Lungs: diminished left lung Abdomen: soft , nontender, distended, bowel sounds positive Extremities: no edema clubbing or cyanosis Skin: no rash or lesions Neurologic: no gross focal deficits Psych: appropriate behavior, appropriate mood, corporative, judgment intact - Constitutional Vitals: Temp Pulse Resp BP Pulse Ox 98.8 F 131 H 16 120/78 100 03/17/18 05:28 03/17/18 05:28 03/17/18 05:28 03/17/18 05:28 03/17/18 05:28 General appearance: Present: no acute distress Results - Labs CBC & Chem 7: 03/17/18 06:01 03/12/18 06:28 Labs: Laboratory Last Values WBC 2.6 K/mm3 (4.5-11.0) L 03/17/18 06:01 RBC 3.98 M/mm3 (3.65-5.03) 03/17/18 06:01 Hgb 8.8 gm/dl (10.1-14.3) L 03/17/18 06:01 Hct 28.5 % (30.3-42.9) L 03/17/18 06:01 MCV 72 fl (79-97) L 03/17/18 06:01 MCH 22 pg (28-32) L 03/17/18 06:01 MCHC 31 % (30-34) 03/17/18 06:01 RDW 24.6 % (13.2-15.2) H 03/17/18 06:01 Plt Count 336 K/mm3 (140-440) 03/17/18 06:01 Add Manual Diff Complete 03/16/18 05:43 Total Counted 100 03/16/18 05:43 Seg Neuts % (Manual) 63.0 % (40.0-70.0) 03/16/18 05:43 Band Neutrophils % 0 % 03/16/18 05:43 Lymphocytes % (Manual) 21.0 % (13.4-35.0) 03/16/18 05:43 Reactive Lymphs % (Man) 2.0 % 03/16/18 05:43 Monocytes % (Manual) 9.0 % (0.0-7.3) H 03/16/18 05:43 Eosinophils % (Manual) 2.0 % (0.0-4.3) 03/16/18 05:43 Basophils % (Manual) 3.0 % (0.0-1.8) H 03/16/18 05:43 Metamyelocytes % 0 % 03/16/18 05:43 Myelocytes % 0 % 03/16/18 05:43 Promyelocytes % 0 % 03/16/18 05:43 Blast Cells % 0 % 03/16/18 05:43 Nucleated RBC % Not Reportable 03/16/18 05:43 Seg Neutrophils # Man 1.4 K/mm3 (1.8-7.7) L 03/16/18 05:43 Band Neutrophils # 0.0 K/mm3 03/16/18 05:43 Lymphocytes # (Manual) 0.5 K/mm3 (1.2-5.4) L 03/16/18 05:43 Abs React Lymphs (Man) 0.0 K/mm3 03/16/18 05:43 Monocytes # (Manual) 0.2 K/mm3 (0.0-0.8) 03/16/18 05:43 Eosinophils # (Manual) 0.0 K/mm3 (0.0-0.4) 03/16/18 05:43 Basophils # (Manual) 0.1 K/mm3 (0.0-0.1) 03/16/18 05:43 Metamyelocytes # 0.0 K/mm3 03/16/18 05:43 Myelocytes # 0.0 K/mm3 03/16/18 05:43 Promyelocytes # 0.0 K/mm3 03/16/18 05:43 Blast Cells # 0.0 K/mm3 03/16/18 05:43 WBC Morphology Not Reportable 03/16/18 05:43 Hypersegmented Neuts Not Reportable 03/16/18 05:43 Hyposegmented Neuts Not Reportable 03/16/18 05:43 Hypogranular Neuts Not Reportable 03/16/18 05:43 Smudge Cells Not Reportable 03/16/18 05:43 Toxic Granulation Not Reportable 03/16/18 05:43 Toxic Vacuolation Not Reportable 03/16/18 05:43 Dohle Bodies Not Reportable 03/16/18 05:43 Pelger-Huet Anomaly Not Reportable 03/16/18 05:43 Shonna Rods Not Reportable 03/16/18 05:43 Platelet Estimate Cons 03/16/18 05:43 Clumped Platelets Not Reportable 03/16/18 05:43 Plt Clumps, EDTA Not Reportable 03/16/18 05:43 Large Platelets Few 03/16/18 05:43 Giant Platelets Not Reportable 03/16/18 05:43 Platelet Satelliting Not Reportable 03/16/18 05:43 Plt Morphology Comment Not Reportable 03/16/18 05:43 RBC Morphology Not Reportable 03/16/18 05:43 Dimorphic RBCs Not Reportable 03/16/18 05:43 Polychromasia 2+ 03/16/18 05:43 Hypochromasia Not Reportable 03/16/18 05:43 Poikilocytosis 2+ 03/16/18 05:43 Anisocytosis 2+ 03/16/18 05:43 Microcytosis Not Reportable 03/16/18 05:43 Macrocytosis Not Reportable 03/16/18 05:43 Spherocytes Not Reportable 03/16/18 05:43 Pappenheimer Bodies Not Reportable 03/16/18 05:43 Sickle Cells Not Reportable 03/16/18 05:43 Target Cells Not Reportable 03/16/18 05:43 Tear Drop Cells Few 03/16/18 05:43 Ovalocytes 1+ 03/16/18 05:43 Helmet Cells Not Reportable 03/16/18 05:43 Mandujano-Riesel Bodies Not Reportable 03/16/18 05:43 [place] Rings Not Reportable 03/16/18 05:43 [place] Cells Not Reportable 03/16/18 05:43 Bite Cells Not Reportable 03/16/18 05:43 Crenated Cell Not Reportable 03/16/18 05:43 Elliptocytes Few 03/16/18 05:43 Acanthocytes (Spur) Not Reportable 03/16/18 05:43 Rouleaux Not Reportable 03/16/18 05:43 Hemoglobin C Crystals Not Reportable 03/16/18 05:43 Schistocytes Not Reportable 03/16/18 05:43 Malaria parasites Not Reportable 03/16/18 05:43 Percent Retic 1.71 % (0.78-2.58) 03/06/18 15:20 Antonino Bodies Not Reportable 03/16/18 05:43 Hem Pathologist Commnt No 03/16/18 05:43 PT 15.8 Sec. (12.2-14.9) H 03/06/18 15:20 INR 1.19 (0.87-1.13) H 03/06/18 15:20 Sodium 136 mmol/L (137-145) L 03/12/18 06:28 Potassium 4.1 mmol/L (3.6-5.0) 03/12/18 06:28 Chloride 102.6 mmol/L (98-107) 03/12/18 06:28 Carbon Dioxide 20 mmol/L (22-30) L 03/12/18 06:28 Anion Gap 18 mmol/L 03/12/18 06:28 BUN 7 mg/dL (7-17) 03/12/18 06:28 Creatinine 0.5 mg/dL (0.7-1.2) L 03/12/18 06:28 Estimated GFR > 60 ml/min 03/12/18 06:28 BUN/Creatinine Ratio 14 % 03/12/18 06:28 Glucose 97 mg/dL (65-100) 03/12/18 06:28 Uric Acid 5.2 mg/dL (3.5-7.6) 03/06/18 02:13 Calcium 7.6 mg/dL (8.4-10.2) L 03/12/18 06:28 Iron 19 ug/dL (37-170) L 03/06/18 15:20 TIBC 302 mcg/dL (250-450) 03/06/18 15:20 % Saturation 6.29 % 03/06/18 15:20 Transferrin 274 mg/dl (192-382) 03/06/18 15:20 Ferritin 100.5 ng/mL (13.0-400.0) 03/06/18 15:20 Total Bilirubin 0.70 mg/dL (0.1-1.2) 03/05/18 21:31 AST 54 units/L (5-40) H 03/05/18 21:31 ALT 25 units/L (7-56) 03/05/18 21:31 Alkaline Phosphatase 396 units/L (35-129) H 03/05/18 21:31 Lactate Dehydrogenase 343 units/L (91-180) H 03/06/18 15:20 Troponin T < 0.010 ng/mL (0.00-0.029) 03/07/18 16:28 C-Reactive Protein 1.70 mg/dL (0.00-1.30) H 03/13/18 10:23 Serum Total Protein 7.4 g/dL (6.1-8.1) 03/06/18 15:20 Total Protein 7.9 g/dL (6.3-8.2) 03/05/18 21:31 Albumin 3.0 g/dL (3.8-4.8) L 03/06/18 15:20 Albumin/Globulin Ratio 0.8 % 03/05/18 21:31 Rguhf-0-Ulisrmreq 0.4 g/dL (0.2-0.3) H 03/06/18 15:20 Nxxym-9-Idswqwper 0.6 g/dL (0.5-0.9) 03/06/18 15:20 Beta Globulins 0.3 g/dL (0.2-0.5) 03/06/18 15:20 Gamma Globulins 2.7 g/dL (0.8-1.7) H 03/06/18 15:20 Abnorm Protein Band 1 see below 03/06/18 15:20 PEP Interpretation see below H 03/06/18 15:20 Vitamin B12 725.0 pg/mL (211-911) 03/06/18 15:20 Folate > 20 ng/mL (7.3-26.0) 03/06/18 15:20 TSH 1.780 mlU/mL (0.270-4.200) 03/07/18 13:19 Free T4 1.26 ng/dL (0.76-1.46) 03/07/18 13:19 T3 (SHANICE) 102 ng/dL (76-181) 03/07/18 13:19 Vancomycin Trough 21.2 ug/mL (5.0-20.0) H 03/08/18 08:48 Immunofix Electrophor see below 03/06/18 15:20 HUSSEIN Screen Negative (Negative) 03/13/18 10:23 Proteinase 3 (PR3) Ab <1.0 AI (<1.0) 08/10/18 10:23 Myeloperoxidase Ab <1.0 AI (<1.0) 03/13/18 10:23 Complement C3 112 mg/dL (83-193) 03/13/18 10:23 Complement C4 22 mg/dL (15-57) 03/13/18 10:23 Hepatitis A IgM Ab Non-reactive (NonReactive) 03/13/18 18:46 Hep Bs Antigen Non-reactive (Negative) 03/13/18 18:46 Hep B Core IgM Ab Non-reactive (NonReactive) 03/13/18 18:46 Hepatitis C Antibody Non-reactive (NonReactive) 03/13/18 18:46 HIV 1&2 Antibody Rapid Non react (Non React) 03/13/18 10:23 HIV P24 Antigen Non react (Non React) 03/13/18 10:23 Blood Type B POSITIVE 03/10/18 13:28 Antibody Screen Negative 03/10/18 13:28 Crossmatch See Detail 03/10/18 13:28
[2018-03-17] MEDS: SODIUM CHLORIDE FLUSH SYRINGE 10 ML IV SCH ×2 (10:03→22:12)
--- NOTE | 2018-03-17 10:08 | Progress Note ---
Assessment and Plan Assessment and plan: Patient is a 32 yo woman with a history of myasthenia gravis who presented with cough, low back pain, shortness of breath, dizziness, night sweats and abd pains. Abdominal pains due to Splenomegaly : pleural fluid cytology, no malignant cells , BM and liver bx show non caseating granulomas, planned for IR emoblization to reduce vascularity followed by Splenectomy which will be done 2 weeks after vaccination for encapsulated organisms -Non caseating graunolma in Liver and bone marrow and recurrent lung effusion; concern for Sarcoidosis? Pulm has been consulted -Discusseed with Dr. Restrepo today -c/o sob, has hypoxia on ambulation; due to recurrent Effusion -Acute hypoxic respiratory failure; likely due to pleural effusion, continue oxygen prn, fup cxr Anemia/leukopenia transfused prbc Large pleural effusion: sp thoracentesis, fluid analysis shows transudative fluid, has now recurred, consulted IR for pleur-X cath today. Pneumonia, aspiration type: cont abx Myasthenia gravis by history: currently asymptomatic, sp thymoma, in remission DVT prophylaxis: scd only due to anemia Acute toxic encephalopathy/confusion per nursing note; was likely due to codeine , was dc, now resolved Full code status History Interval history: shortness of breath, worse on exertion abdominal pain gen weakness Hospitalist Physical - Physical exam Narrative exam: GEN:Not in acute distress, HEENT: Normocephalic, atraumatic, Neck: supple, No JVD Lungs: Decreased breath sounds on left, no crackles, no wheeze Heart:S1 and S2 reg, no murmurs, rubs or gallop Abd:soft, NT, non-distended,splenomegaly, Normal BS Ext: No edema, clubbing or cyanosis Neuro:Awake,alert,oriented x 3, no focal neurological signs Psych: Normal mood - Constitutional Vitals: Temp Pulse Resp BP Pulse Ox 98.8 F 131 H 16 120/78 100 03/17/18 05:28 03/17/18 05:28 03/17/18 05:28 03/17/18 05:28 03/17/18 05:28 General appearance: Present: no acute distress Results - Labs CBC & Chem 7: 03/17/18 06:01 03/12/18 06:28 Labs: Laboratory Last Values WBC 2.6 K/mm3 (4.5-11.0) L 08/14/18 06:01 RBC 3.98 M/mm3 (3.65-5.03) 03/17/18 06:01 Hgb 8.8 gm/dl (10.1-14.3) L 03/17/18 06:01 Hct 28.5 % (30.3-42.9) L 03/17/18 06:01 MCV 72 fl (79-97) L 03/17/18 06:01 MCH 22 pg (28-32) L 03/17/18 06:01 MCHC 31 % (30-34) 03/17/18 06:01 RDW 24.6 % (13.2-15.2) H 03/17/18 06:01 Plt Count 336 K/mm3 (140-440) 03/17/18 06:01 Add Manual Diff Complete 03/16/18 05:43 Total Counted 100 03/16/18 05:43 Seg Neuts % (Manual) 63.0 % (40.0-70.0) 03/16/18 05:43 Band Neutrophils % 0 % 03/16/18 05:43 Lymphocytes % (Manual) 21.0 % (13.4-35.0) 03/16/18 05:43 Reactive Lymphs % (Man) 2.0 % 03/16/18 05:43 Monocytes % (Manual) 9.0 % (0.0-7.3) H 03/16/18 05:43 Eosinophils % (Manual) 2.0 % (0.0-4.3) 03/16/18 05:43 Basophils % (Manual) 3.0 % (0.0-1.8) H 03/16/18 05:43 Metamyelocytes % 0 % 03/16/18 05:43 Myelocytes % 0 % 03/16/18 05:43 Promyelocytes % 0 % 03/16/18 05:43 Blast Cells % 0 % 03/16/18 05:43 Nucleated RBC % Not Reportable 03/16/18 05:43 Seg Neutrophils # Man 1.4 K/mm3 (1.8-7.7) L 03/16/18 05:43 Band Neutrophils # 0.0 K/mm3 03/16/18 05:43 Lymphocytes # (Manual) 0.5 K/mm3 (1.2-5.4) L 03/16/18 05:43 Abs React Lymphs (Man) 0.0 K/mm3 03/16/18 05:43 Monocytes # (Manual) 0.2 K/mm3 (0.0-0.8) 03/16/18 05:43 Eosinophils # (Manual) 0.0 K/mm3 (0.0-0.4) 03/16/18 05:43 Basophils # (Manual) 0.1 K/mm3 (0.0-0.1) 03/16/18 05:43 Metamyelocytes # 0.0 K/mm3 03/16/18 05:43 Myelocytes # 0.0 K/mm3 03/16/18 05:43 Promyelocytes # 0.0 K/mm3 03/16/18 05:43 Blast Cells # 0.0 K/mm3 03/16/18 05:43 WBC Morphology Not Reportable 03/16/18 05:43 Hypersegmented Neuts Not Reportable 03/16/18 05:43 Hyposegmented Neuts Not Reportable 03/16/18 05:43 Hypogranular Neuts Not Reportable 03/16/18 05:43 Smudge Cells Not Reportable 03/16/18 05:43 Toxic Granulation Not Reportable 03/16/18 05:43 Toxic Vacuolation Not Reportable 03/16/18 05:43 Dohle Bodies Not Reportable 03/16/18 05:43 Pelger-Huet Anomaly Not Reportable 03/16/18 05:43 Shonna Rods Not Reportable 03/16/18 05:43 Platelet Estimate Cons 03/16/18 05:43 Clumped Platelets Not Reportable 03/16/18 05:43 Plt Clumps, EDTA Not Reportable 03/16/18 05:43 Large Platelets Few 03/16/18 05:43 Giant Platelets Not Reportable 03/16/18 05:43 Platelet Satelliting Not Reportable 03/16/18 05:43 Plt Morphology Comment Not Reportable 03/16/18 05:43 RBC Morphology Not Reportable 03/16/18 05:43 Dimorphic RBCs Not Reportable 03/16/18 05:43 Polychromasia 2+ 03/16/18 05:43 Hypochromasia Not Reportable 03/16/18 05:43 Poikilocytosis 2+ 03/16/18 05:43 Anisocytosis 2+ 03/16/18 05:43 Microcytosis Not Reportable 03/16/18 05:43 Macrocytosis Not Reportable 03/16/18 05:43 Spherocytes Not Reportable 03/16/18 05:43 Pappenheimer Bodies Not Reportable 03/16/18 05:43 Sickle Cells Not Reportable 03/16/18 05:43 Target Cells Not Reportable 03/16/18 05:43 Tear Drop Cells Few 03/16/18 05:43 Ovalocytes 1+ 03/16/18 05:43 Helmet Cells Not Reportable 03/16/18 05:43 [place] Bodies Not Reportable 03/16/18 05:43 [place] Rings Not Reportable 03/16/18 05:43 Leon Cells Not Reportable 03/16/18 05:43 Bite Cells Not Reportable 03/16/18 05:43 Crenated Cell Not Reportable 03/16/18 05:43 Elliptocytes Few 03/16/18 05:43 Acanthocytes (Spur) Not Reportable 03/16/18 05:43 Rouleaux Not Reportable 03/16/18 05:43 Hemoglobin C Crystals Not Reportable 03/16/18 05:43 Schistocytes Not Reportable 03/16/18 05:43 Malaria parasites Not Reportable 03/16/18 05:43 Percent Retic 1.71 % (0.78-2.58) 03/06/18 15:20 Antonino Bodies Not Reportable 03/16/18 05:43 Hem Pathologist Commnt No 03/16/18 05:43 PT 15.8 Sec. (12.2-14.9) H 03/06/18 15:20 INR 1.19 (0.87-1.13) H 03/06/18 15:20 Sodium 136 mmol/L (137-145) L 03/12/18 06:28 Potassium 4.1 mmol/L (3.6-5.0) 03/12/18 06:28 Chloride 102.6 mmol/L (98-107) 03/12/18 06:28 Carbon Dioxide 20 mmol/L (22-30) L 03/12/18 06:28 Anion Gap 18 mmol/L 03/12/18 06:28 BUN 7 mg/dL (7-17) 03/12/18 06:28 Creatinine 0.5 mg/dL (0.7-1.2) L 03/12/18 06:28 Estimated GFR > 60 ml/min 03/12/18 06:28 BUN/Creatinine Ratio 14 % 03/12/18 06:28 Glucose 97 mg/dL (65-100) 03/12/18 06:28 Uric Acid 5.2 mg/dL (3.5-7.6) 03/06/18 02:13 Calcium 7.6 mg/dL (8.4-10.2) L 03/12/18 06:28 Iron 19 ug/dL (37-170) L 03/06/18 15:20 TIBC 302 mcg/dL (250-450) 03/06/18 15:20 % Saturation 6.29 % 03/06/18 15:20 Transferrin 274 mg/dl (192-382) 03/06/18 15:20 Ferritin 100.5 ng/mL (13.0-400.0) 03/06/18 15:20 Total Bilirubin 0.70 mg/dL (0.1-1.2) 03/05/18 21:31 AST 54 units/L (5-40) H 03/05/18 21:31 ALT 25 units/L (7-56) 03/05/18 21:31 Alkaline Phosphatase 396 units/L (35-129) H 03/05/18 21:31 Lactate Dehydrogenase 343 units/L (91-180) H 03/06/18 15:20 Troponin T < 0.010 ng/mL (0.00-0.029) 03/07/18 16:28 C-Reactive Protein 1.70 mg/dL (0.00-1.30) H 03/13/18 10:23 Serum Total Protein 7.4 g/dL (6.1-8.1) 03/06/18 15:20 Total Protein 7.9 g/dL (6.3-8.2) 03/05/18 21:31 Albumin 3.0 g/dL (3.8-4.8) L 03/06/18 15:20 Albumin/Globulin Ratio 0.8 % 03/05/18 21:31 Zxbsk-1-Zcohgiduk 0.4 g/dL (0.2-0.3) H 03/06/18 15:20 Blcna-1-Fscdpbfuw 0.6 g/dL (0.5-0.9) 03/06/18 15:20 Beta Globulins 0.3 g/dL (0.2-0.5) 03/06/18 15:20 Gamma Globulins 2.7 g/dL (0.8-1.7) H 03/06/18 15:20 Abnorm Protein Band 1 see below 03/06/18 15:20 PEP Interpretation see below H 03/06/18 15:20 Vitamin B12 725.0 pg/mL (211-911) 03/06/18 15:20 Folate > 20 ng/mL (7.3-26.0) 03/06/18 15:20 TSH 1.780 mlU/mL (0.270-4.200) 03/07/18 13:19 Free T4 1.26 ng/dL (0.76-1.46) 03/07/18 13:19 T3 (SHANICE) 102 ng/dL (76-181) 03/07/18 13:19 Vancomycin Trough 21.2 ug/mL (5.0-20.0) H 03/08/18 08:48 Immunofix Electrophor see below 03/06/18 15:20 HUSSEIN Screen Negative (Negative) 03/13/18 10:23 Proteinase 3 (PR3) Ab <1.0 AI (<1.0) 03/13/18 10:23 Myeloperoxidase Ab <1.0 AI (<1.0) 03/13/18 10:23 Complement C3 112 mg/dL (83-193) 03/13/18 10:23 Complement C4 22 mg/dL (15-57) 03/13/18 10:23 Hepatitis A IgM Ab Non-reactive (NonReactive) 03/13/18 18:46 Hep Bs Antigen Non-reactive (Negative) 03/13/18 18:46 Hep B Core IgM Ab Non-reactive (NonReactive) 03/13/18 18:46 Hepatitis C Antibody Non-reactive (NonReactive) 03/13/18 18:46 HIV 1&2 Antibody Rapid Non react (Non React) 03/13/18 10:23 HIV P24 Antigen Non react (Non React) 03/13/18 10:23 Blood Type B POSITIVE 03/10/18 13:28 Antibody Screen Negative 03/10/18 13:28 Crossmatch See Detail 03/10/18 13:28
--- NOTE | 2018-03-17 10:48 | Consultation ---
History of Present Illness Consult date: 03/17/18 Requesting physician: ELIZA KNOX Reason for consult: other (Sarcoid in the Bone Marrow) History of present illness: 33 y/o female, admitted several days ago with cough and shortness of breath. Found to have large left sided effusion. Drained but negative for malignancy. Had a bone marrow as well as a liver biopsy but bone marrow showed non- caseating granulomas. Oncology consulted us secondary to this finding. Patient states that she has never been diagnosed with sarcoid. She does not have any family members with the disease state. She herself has Myasthenia Gravis and this was diagnosed in 2013 but she has been off therapy since 2013. Per patient she does have a dry cough. She has never had any issues with breathing outside of this hospital stay. She does have tattoos but has never seen any fine bumps around or on these areas. She does have occasional peeling around her nares but denies a garret or gritty feeling in her eyes. Remainder of the review is negative. Past History Past Medical History: No medical history (myasthenia gravin diagnosed in 2003 off treatment for a while), other (myasthenia gravis) Past Surgical History: Other (thymectomy) Social history: no significant social history Family history: no significant family history Medications and Allergies Allergies Allergy/AdvReac Type Severity Reaction Status Date / Time magnesium Allergy Unknown Verified 03/05/18 16:16 Home Medications Medication Instructions Recorded Confirmed Last Taken Type Benzonatate [Tessalon Perles] 100 mg PO Q8HR #30 capsule 03/16/18 Unknown Rx Multivitamin with Iron 1 each PO DAILY #30 tablet 03/16/18 Unknown Rx [Multivitamins with Iron] guaiFENesin [Robitussin] 200 mg PO Q4H PRN #1 bottle 03/16/18 Unknown Rx oxyCODONE /ACETAMINOPHEN [Percocet 1 tab PO Q6H PRN #20 tablet 03/16/18 Unknown Rx 5/325 mg] Active Meds: Active Medications Acetaminophen (Tylenol) 650 mg PO Q4H PRN PRN Reason: Pain MILD(1-3)/Fever >100.5/HERBERT Last Admin: 03/15/18 23:43 Dose: 650 mg Benzonatate (Tessalon Perles) 100 mg PO Q8HR [facility] Last Admin: 03/16/18 22:09 Dose: 100 mg Guaifenesin (Robitussin) 200 mg PO Q4H PRN PRN Reason: Cough Last Admin: 03/16/18 18:38 Dose: 200 mg Morphine Sulfate (Morphine) 2 mg IV Q4H PRN PRN Reason: Pain , Severe (7-10) Last Admin: 03/17/18 05:36 Dose: 2 mg Ondansetron HCl (Zofran) 4 mg IV Q4H PRN PRN Reason: Nausea And Vomiting Last Admin: 03/14/18 22:01 Dose: 4 mg Oxycodone/Acetaminophen (Percocet 5/325) 1 tab PO Q6H PRN PRN Reason: Pain, Moderate (4-6) Last Admin: 03/16/18 18:39 Dose: 1 tab Sodium Chloride (Sodium Chloride Flush Syringe 10 Ml) 10 ml IV BID THAI Last Admin: 03/17/18 10:03 Dose: 10 ml Sodium Chloride (Sodium Chloride Flush Syringe 10 Ml) 10 ml IV PRN PRN PRN Reason: LINE FLUSH Review of Systems All systems: negative Physical Examination Vital signs: Vital Signs Temp Pulse Resp BP Pulse Ox 98.1 F 135 H 16 116/76 100 03/05/18 16:10 03/05/18 16:10 03/05/18 16:10 03/05/18 16:10 03/05/18 16:10 General appearance: no acute distress, alert Eyes: non-icteric ENT: oropharynx moist Neck: supple Effort: normal Ascultation: Right: clear, Left: diminished breath sounds Percussion: Left: dull Cardiovascular: regular rate and rhythm Gastrointestinal: soft Integumentary: rash (areas of discoloration all over face) Extremities: no cyanosis, no edema Musculoskeletal: no deformities normal mental status, non-focal exam mood appropriate Results - Laboratory Findings CBC and BMP: 03/17/18 06:01 03/12/18 06:28 PT/INR, D-dimer PT 15.8 Sec. (12.2-14.9) H 03/06/18 15:20 INR 1.19 (0.87-1.13) H 03/06/18 15:20 Abnormal lab findings: Abnormal Labs 03/05/18 03/05/18 03/05/18 21:31 21:31 22:31 WBC 1.9 L* RBC 3.30 L Hgb 6.2 L Hct 21.0 L MCV 64 L MCH 19 L MCHC 29 L RDW 19.6 H Seg Neuts % (Manual) 74.0 H Lymphocytes % (Manual) Monocytes % (Manual) Basophils % (Manual) Seg Neutrophils # Man 1.4 L Lymphocytes # (Manual) 0.4 L PT INR Sodium 133 L Chloride 96.2 L Carbon Dioxide Creatinine 0.5 L Glucose 108 H Calcium Iron AST 54 H Alkaline Phosphatase 396 H Lactate Dehydrogenase C-Reactive Protein Albumin 3.4 L Jcdne-1-Ckvlueiuc Gamma Globulins PEP Interpretation Vancomycin Trough Crossmatch See Detail 03/06/18 03/06/18 03/06/18 02:12 03:20 03:20 WBC 1.4 L* RBC 3.08 L Hgb 5.5 L* Hct 20.5 L MCV 66 L MCH 18 L MCHC 27 L RDW 19.8 H Seg Neuts % (Manual) Lymphocytes % (Manual) Monocytes % (Manual) Basophils % (Manual) Seg Neutrophils # Man 0.9 L Lymphocytes # (Manual) 0.3 L PT INR Sodium Chloride Carbon Dioxide 21 L Creatinine Glucose Calcium 7.7 L Iron AST Alkaline Phosphatase Lactate Dehydrogenase 307 H C-Reactive Protein Albumin Fwxdg-9-Cfwcxtpoo Gamma Globulins PEP Interpretation Vancomycin Trough Crossmatch 03/06/18 03/06/18 03/06/18 12:27 15:20 15:20 WBC 1.6 L* RBC Hgb 7.2 L Hct 25.3 L MCV 69 L MCH 20 L MCHC 28 L RDW 22.1 H Seg Neuts % (Manual) 79.0 H Lymphocytes % (Manual) 11.0 L Monocytes % (Manual) Basophils % (Manual) 2.0 H Seg Neutrophils # Man 1.3 L Lymphocytes # (Manual) 0.2 L PT INR Sodium Chloride Carbon Dioxide Creatinine Glucose Calcium Iron 19 L AST Alkaline Phosphatase Lactate Dehydrogenase 343 H C-Reactive Protein Albumin 3.0 L Yvnit-6-Ndqjyschn 0.4 H Gamma Globulins 2.7 H PEP Interpretation see below H Vancomycin Trough Crossmatch 03/06/18 03/08/18 03/09/18 15:20 08:48 09:47 WBC 1.6 L* RBC Hgb 7.9 L Hct 27.2 L MCV 69 L MCH 20 L MCHC 29 L RDW 22.8 H Seg Neuts % (Manual) Lymphocytes % (Manual) Monocytes % (Manual) Basophils % (Manual) Seg Neutrophils # Man Lymphocytes # (Manual) PT 15.8 H INR 1.19 H Sodium Chloride Carbon Dioxide Creatinine Glucose Calcium Iron AST Alkaline Phosphatase Lactate Dehydrogenase C-Reactive Protein Albumin Wkzvu-3-Ssnillqcj Gamma Globulins PEP Interpretation Vancomycin Trough 21.2 H Crossmatch 03/10/18 03/10/18 03/10/18 06:30 06:30 13:28 WBC 1.9 L* RBC 3.58 L Hgb 6.9 L Hct 24.4 L MCV 68 L MCH 19 L MCHC 28 L RDW 23.5 H Seg Neuts % (Manual) 72.0 H Lymphocytes % (Manual) 13.0 L Monocytes % (Manual) 13.0 H Basophils % (Manual) Seg Neutrophils # Man 1.4 L Lymphocytes # (Manual) 0.2 L PT INR Sodium 135 L Chloride Carbon Dioxide 18 L Creatinine 0.5 L Glucose Calcium 7.9 L Iron AST Alkaline Phosphatase Lactate Dehydrogenase C-Reactive Protein Albumin Jcuaf-5-Xevvtdfcs Gamma Globulins PEP Interpretation Vancomycin Trough Crossmatch See Detail 03/11/18 03/11/18 03/12/18 11:36 11:36 06:28 WBC 1.5 L* 1.8 L* RBC Hgb 8.1 L 8.0 L Hct 28.0 L 27.4 L MCV 72 L 71 L MCH 21 L 21 L MCHC 29 L 29 L RDW 24.2 H 24.8 H Seg Neuts % (Manual) 83.0 H 79.0 H Lymphocytes % (Manual) 8.0 L 12.0 L Monocytes % (Manual) Basophils % (Manual) 2.0 H Seg Neutrophils # Man 1.2 L 1.4 L Lymphocytes # (Manual) 0.1 L 0.2 L PT INR Sodium 135 L Chloride Carbon Dioxide 21 L Creatinine Glucose Calcium 7.7 L Iron AST Alkaline Phosphatase Lactate Dehydrogenase C-Reactive Protein Albumin Sinsf-4-Skytzvcse Gamma Globulins PEP Interpretation Vancomycin Trough Crossmatch 03/12/18 03/13/18 03/13/18 06:28 05:58 10:23 WBC 2.0 L RBC Hgb 8.0 L Hct 27.5 L MCV 72 L MCH 21 L MCHC 29 L RDW 24.9 H Seg Neuts % (Manual) 72.0 H Lymphocytes % (Manual) Monocytes % (Manual) 10.0 H Basophils % (Manual) Seg Neutrophils # Man 1.4 L Lymphocytes # (Manual) 0.3 L PT INR Sodium 136 L Chloride Carbon Dioxide 20 L Creatinine 0.5 L Glucose Calcium 7.6 L Iron AST Alkaline Phosphatase Lactate Dehydrogenase C-Reactive Protein 1.70 H Albumin Vvwuf-2-Bufqkzcvc Gamma Globulins PEP Interpretation Vancomycin Trough Crossmatch 03/14/18 03/15/18 03/16/18 09:02 09:52 05:43 WBC 2.0 L 2.0 L 2.3 L RBC 3.57 L Hgb 8.4 L 8.1 L 8.3 L Hct 29.3 L 26.1 L 27.5 L MCV 77 L 73 L 73 L MCH 22 L 23 L 22 L MCHC 29 L RDW 24.8 H 24.6 H 24.4 H Seg Neuts % (Manual) 87.0 H 83.0 H Lymphocytes % (Manual) 6.0 L 7.0 L Monocytes % (Manual) 8.0 H 9.0 H Basophils % (Manual) 2.0 H 3.0 H Seg Neutrophils # Man 1.7 L 1.7 L 1.4 L Lymphocytes # (Manual) 0.1 L 0.1 L 0.5 L PT INR Sodium Chloride Carbon Dioxide Creatinine Glucose Calcium Iron AST Alkaline Phosphatase Lactate Dehydrogenase C-Reactive Protein Albumin Nflfi-4-Qekpmombz Gamma Globulins PEP Interpretation Vancomycin Trough Crossmatch 03/17/18 06:01 WBC 2.6 L RBC Hgb 8.8 L Hct 28.5 L MCV 72 L MCH 22 L MCHC RDW 24.6 H Seg Neuts % (Manual) Lymphocytes % (Manual) Monocytes % (Manual) Basophils % (Manual) Seg Neutrophils # Man Lymphocytes # (Manual) PT INR Sodium Chloride Carbon Dioxide Creatinine Glucose Calcium Iron AST Alkaline Phosphatase Lactate Dehydrogenase C-Reactive Protein Albumin Jyxpo-6-Sdchgfjkd Gamma Globulins PEP Interpretation Vancomycin Trough Crossmatch - Diagnostic Findings Chest x-ray: report reviewed (unable to view the actual image) Assessment and Plan 33 y/o female with cough, left sided pleural effusion, leukopenia, anemia and some form of granulomatous disease. 1. Non-caseating granulomas, only seen in bone marrow, on liver biopsy they only state granulomas. Hard to say definitively this is a diagnosis of sarcoid. Pleural effusions are also very rare in sarcoid. Pleural involvement is seen in less than 10% of cases. Lungs are skin are the most common presenting organ systems for sarcoid and are usually the point of diagnosis. At this point, would consider even attempting a pleural biopsy but this cannot be done at this hospital. Would have to refer patient to [facility]. At this point, would not feel comfortable starting steroids, even though it does not appear to be infectious in nature. She is getting a pleurx today and I will follow up with her again. I have spoken to the Thoracic guys at [facility] who state they can do a pleural biopsy if warranted. I have also reached out to a sarcoid expert I know to get their opinion. I would also suggest asking path to send the liver and bone marrow out for a second opinion. Thank you for this interesting consult.
[2018-03-17 11:07] LABS: Total Cells Counted 100
[2018-03-17 11:08] LABS: Eosinophils % (Manual) 0 % (0.0-4.3)
[2018-03-17 11:09] LABS: Anisocytosis 2+; Hypochromasia 1+; Ovalocytes 1+; Poikilocytosis 1+
[2018-03-17 11:10] LABS: Large Platelets Few; Platelet Estimate Cons
[2018-03-17] MEDS ORDERED: NACL 0.9% 500 ML IR ONE (11:16)
[2018-03-17] MEDS ORDERED: NACL 0.9% 500 ML 500 ML ONE ×2 (11:17)
[2018-03-17] MEDS: VERSED ONE ×2 (11:59→12:03)
[2018-03-17] MEDS: SUBLIMAZE ONE ×3 (11:59→12:15)
[2018-03-17] MEDS: XYLOCAINE 1%/ EPI 1:100,000 INFILTRATI ONE ×2 (12:05→12:12)
--- NOTE | 2018-03-17 12:43 | Operative Report ---
Operative Report Operative Report: Exam: Placement of left-sided tunneled pleural drainage catheter Clinical indication: Patient with malignant left pleural effusion with immediate recurrence of left pleural effusion following thoracentesis and a history of sarcoidosis Date: 03/17/2018 Procedure: Following an explanation of the risks, benefits and alternatives; written informed consent was obtained. The patient was brought to the angiographic suite and placed in supine position on the examination table. Initial ultrasound evaluation of her left hemithorax demonstrated a significant left pleural effusion. The patient's left chest wall was split prepped from the midline to her flank. 1% lidocaine was used for anesthesia. Under ultrasound guidance, a 7 cm 18-gauge needle was advanced into the pleural fluid. A 0.035 guidewire was then advanced through the needle to the lung apex under fluoroscopy. The needle was removed. An appropriate access site was chosen anterior and inferior to the dermatotomy site. A [employer] Aspira pleural drainage catheter was then tunneled antegrade from the catheter exit site to the dermatotomy site. Following serial dilation over the guidewire under fluoroscopy, the drainage catheter was advanced through the peel-away sheath under fluoroscopy. The catheter was position within the mid lung. There was prompt return of dark serous fluid. A total of 1000 mL of dark serous fluid was aspirated. Samples were sent for laboratory analysis. The dermatotomy site was closed using 4-0 subcutaneous Vicryl suture and Dermabond. 4-0 Vicryl suture and Dermabond were also used to approximate the catheter exit site. A sterile dressing was then applied. The patient tolerated the procedure well. There were no immediate post procedure complications. Conscious sedation was performed under the guidance of radiologic nursing. Continuous cardiopulmonary monitoring was utilized. Impression: 1) Ultrasound and fluoroscopic guided placement of left sided tunnel pleural drainage catheter with 1000 mL's of dark serous fluid aspirated with samples sent for laboratory analysis.
[2018-03-17] MEDS: TESSALON PERLES PO SCH ×2 (15:23→22:11)
[2018-03-17] MEDS: PERCOCET 5/325 PO PRN ×2 (15:24→22:11)
[2018-03-17] MEDS: DELTASONE PO SCH (15:24)
--- NOTE | 2018-03-17 22:16 | Hem/Onc Progress Note ---
Assessment and Plan - Patient Problems (1) Abdominal mass Current Visit: Yes Status: Acute Plan to address problem: Had long discussion with Dr Restrepo. He will start prednisone 30 mg po daily to treat sarcoidosis. Patient and family agree. Subjective Date of service: 03/17/18 Interval history: She feels better overall. Objective - Constitutional Vitals: Last Vital Signs Temp 98.3 F 03/17/18 21:50 Pulse 114 H 03/17/18 21:50 Resp 20 03/17/18 22:11 BP 130/91 03/17/18 21:50 Pulse Ox 99 03/17/18 21:50 - EENT Eyes: PERRL - Neck Neck: supple - Respiratory Respiratory: bilateral: CTA - Cardiovascular Rhythm: regular Heart Sounds: Present: S1 & S2 - Labs Lab Results: Laboratory Results - last 24 hr 03/17/18 06:01 WBC 2.6 L RBC 3.98 Hgb 8.8 L Hct 28.5 L MCV 72 L MCH 22 L MCHC 31 RDW 24.6 H Plt Count 336 Add Manual Diff Complete Total Counted 100 Seg Neuts % (Manual) 72.0 H Band Neutrophils % 0 Lymphocytes % (Manual) 8.0 L Reactive Lymphs % (Man) 3.0 Monocytes % (Manual) 16.0 H Eosinophils % (Manual) 0 Basophils % (Manual) 1.0 Metamyelocytes % 0 Myelocytes % 0 Promyelocytes % 0 Blast Cells % 0 Nucleated RBC % Not Reportable Seg Neutrophils # Man 1.9 Band Neutrophils # 0.0 Lymphocytes # (Manual) 0.2 L Abs React Lymphs (Man) 0.1 Monocytes # (Manual) 0.4 Eosinophils # (Manual) 0.0 Basophils # (Manual) 0.0 Metamyelocytes # 0.0 Myelocytes # 0.0 Promyelocytes # 0.0 Blast Cells # 0.0 WBC Morphology Not Reportable Hypersegmented Neuts Not Reportable Hyposegmented Neuts Not Reportable Hypogranular Neuts Not Reportable Smudge Cells Not Reportable Toxic Granulation Not Reportable Toxic Vacuolation Not Reportable Dohle Bodies Not Reportable Pelger-Huet Anomaly Not Reportable [place] Rods Not Reportable Platelet Estimate Cons Clumped Platelets Not Reportable Plt Clumps, EDTA Not Reportable Large Platelets Few Giant Platelets Not Reportable Platelet Satelliting Not Reportable Plt Morphology Comment Not Reportable RBC Morphology Not Reportable Dimorphic RBCs Not Reportable Polychromasia Not Reportable Hypochromasia 1+ Poikilocytosis 1+ Anisocytosis 2+ Microcytosis Not Reportable Macrocytosis Not Reportable Spherocytes Not Reportable Pappenheimer Bodies Not Reportable Sickle Cells Not Reportable Target Cells Not Reportable Tear Drop Cells Not Reportable Ovalocytes 1+ Helmet Cells Not Reportable [place] Bodies Not Reportable [place] Rings Not Reportable [place] Cells Not Reportable Bite Cells Not Reportable Crenated Cell Not Reportable Elliptocytes Not Reportable Acanthocytes (Spur) Not Reportable Rouleaux Not Reportable Hemoglobin C Crystals Not Reportable Schistocytes Not Reportable Malaria parasites Not Reportable Antonino Bodies Not Reportable Hem Pathologist Commnt No
[2018-03-18] MEDS: TESSALON PERLES PO SCH ×2 (06:11→17:18)
--- NOTE | 2018-03-18 08:58 | Progress Note ---
Assessment and Plan Patient is doing well following chest tube placement. She may be discharged home from this standpoint. We will coordinate splenic artery embolization prior to her splenectomy with surgery. Subjective Date of service: 03/18/18 Principal diagnosis: splenomegaly Interval history: Status post left chest tube placement of. Patient is doing well and breathing comfortably. No significant complaints of pain at the incision site. Objective - Constitutional Vitals: Vital Signs - 12hr 03/17/18 03/17/18 03/17/18 21:50 22:00 22:11 Temperature 98.3 F Pulse Rate 114 H Respiratory 16 20 20 Rate Blood Pressure 130/91 O2 Sat by Pulse 99 Oximetry 03/18/18 05:50 Temperature 98.8 F Pulse Rate 81 Respiratory 16 Rate Blood Pressure 116/75 O2 Sat by Pulse 96 Oximetry General appearance: Present: no acute distress - EENT Eyes: PERRL, EOM intact ENT: hearing intact - Neck Neck: supple, normal ROM - Respiratory Respiratory effort: normal Extremities: no ischemia - Gastrointestinal General gastrointestinal: Present: distended Rectal Exam: deferred - Genitourinary Female genitourinary: deferred - Psychiatric Psychiatric: appropriate mood/affect, cooperative - Labs CBC & Chem 7: 03/17/18 06:01 03/12/18 06:28 Labs: Abnormal lab results 03/17/18 Range/Units 06:01 Seg Neuts % (Manual) 72.0 H (40.0-70.0) % Lymphocytes % (Manual) 8.0 L (13.4-35.0) % Monocytes % (Manual) 16.0 H (0.0-7.3) % Lymphocytes # (Manual) 0.2 L (1.2-5.4) K/mm3
--- NOTE | 2018-03-18 10:07 | Hem/Onc Progress Note ---
Assessment and Plan Splenectomy in a couple weeks. Splenic artery embolization prior to the procedure. Timing of the embolization is being determined. Next Pleurx catheter to be managed at home. Dr. Villagran Will follow the patient outpatient Subjective Date of service: 03/18/18 Interval history: . Appreciate help from all the consultants. Patient has had Pleurx catheter placed. She had her pleural effusion drained yesterday. Shortness of breath has improved. Steroids have been started. Objective - Constitutional Vitals: Last Vital Signs Temp 98.8 F 03/18/18 05:50 Pulse 81 03/18/18 05:50 Resp 16 03/18/18 05:50 BP 116/75 03/18/18 05:50 Pulse Ox 96 03/18/18 05:50 General appearance: no acute distress - Respiratory Respiratory effort: Positive: normal Respiratory: left: diminished - Cardiovascular Rhythm: regular - Gastrointestinal General gastrointestinal: Present: splenomegaly - Labs Lab Results: Laboratory Results - last 24 hr 03/17/18 06:01 Add Manual Diff Complete Total Counted 100 Seg Neuts % (Manual) 72.0 H Band Neutrophils % 0 Lymphocytes % (Manual) 8.0 L Reactive Lymphs % (Man) 3.0 Monocytes % (Manual) 16.0 H Eosinophils % (Manual) 0 Basophils % (Manual) 1.0 Metamyelocytes % 0 Myelocytes % 0 Promyelocytes % 0 Blast Cells % 0 Nucleated RBC % Not Reportable Seg Neutrophils # Man 1.9 Band Neutrophils # 0.0 Lymphocytes # (Manual) 0.2 L Abs React Lymphs (Man) 0.1 Monocytes # (Manual) 0.4 Eosinophils # (Manual) 0.0 Basophils # (Manual) 0.0 Metamyelocytes # 0.0 Myelocytes # 0.0 Promyelocytes # 0.0 Blast Cells # 0.0 WBC Morphology Not Reportable Hypersegmented Neuts Not Reportable Hyposegmented Neuts Not Reportable Hypogranular Neuts Not Reportable Smudge Cells Not Reportable Toxic Granulation Not Reportable Toxic Vacuolation Not Reportable Dohle Bodies Not Reportable Pelger-Huet Anomaly Not Reportable Shonna Rods Not Reportable Platelet Estimate Cons Clumped Platelets Not Reportable Plt Clumps, EDTA Not Reportable Large Platelets Few Giant Platelets Not Reportable Platelet Satelliting Not Reportable Plt Morphology Comment Not Reportable RBC Morphology Not Reportable Dimorphic RBCs Not Reportable Polychromasia Not Reportable Hypochromasia 1+ Poikilocytosis 1+ Anisocytosis 2+ Microcytosis Not Reportable Macrocytosis Not Reportable Spherocytes Not Reportable Pappenheimer Bodies Not Reportable Sickle Cells Not Reportable Target Cells Not Reportable Tear Drop Cells Not Reportable Ovalocytes 1+ Helmet Cells Not Reportable Mandujano-[place] Bodies Not Reportable [place] Rings Not Reportable [place] Cells Not Reportable Bite Cells Not Reportable Crenated Cell Not Reportable Elliptocytes Not Reportable Acanthocytes (Spur) Not Reportable Rouleaux Not Reportable Hemoglobin C Crystals Not Reportable Schistocytes Not Reportable Malaria parasites Not Reportable Antonino Bodies Not Reportable Hem Pathologist Commnt No
[2018-03-18] MEDS: SODIUM CHLORIDE FLUSH SYRINGE 10 ML IV SCH (11:40)
[2018-03-18] MEDS: DELTASONE PO SCH (11:40)
[2018-03-18] MEDS: PERCOCET 5/325 PO PRN (12:04)
--- NOTE | 2018-03-18 12:24 | Progress Note ---
Assessment and Plan Assessment: 1) SIRS: fever resolved, still neutropenia. Etiology most likely sarcoidosis flare. NO infection etiology found so far. 2) Pancytopenia, splenomegaly and Granulomatous hepatitis: DDx ? sarcoidosis, -CT abd diffuse enlarged splenomegaly. -S/P liver biopsy on 03/09 which showed granulomatous hepatitis with negative AFB stain, negative malignancy and positive periportal fibrosis stage 1. -S/P BM biopsy 03/09 several non caseating granulomas -HIV neg -CMV<200 -HUSSEIN neg -ANCA neg -C3/C4 normal -viral hep neg 3) Left pleural effusion: -CXR mod LLL infiltrates and pleural effusion. -CT chest large heterogenous enhacing mass LUQ ? spleen, subcm hepatic nodules, large left pleural effusion -S/p thoracenthesis on 03/09 negative for malignancy and positive reactive mesothelial cells. -S/p thoracentesis 03/17 cytology reactive mesothelial cells and macrophages.\ -S/p pleurx 4) Myasthenia gravis now in remission, s/p thymectomy Plan: -general surgery considering splenomegaly in 2 weeks, ok to give her pneumovax, H influenza and meningococcal vaccines (all available inpatient) -started on prednisone for sarcoidosis -splenic artery embolization prior to splenectomy. Timing of the embolization is being determined. I am signing off Thank you for your consultation, will follow up with you. Mimi Esparza MD Infectious Diseases Specialist [facility] [phone] Subjective Date of service: 03/18/18 Principal diagnosis: splenomegaly Interval history: Feels good no complaints no fever Microbiology: Blood cultures: 03/06 neg Left pleural fluid: ngtd Current Antimicrobials: Zosyn 03/06 Vancomycin 03/06 Objective - Exam Narrative Exam: General appearance: Alert in NAD, conversant Eyes: anicteric sclerae, moist conjunctivae; no lid-lag; PERRLA HENT: Atraumatic; oropharynx clear Neck: Trachea midline; supple, no thyromegaly or lymphadenopathy Lungs: decreased left BS CV: RRR, no murmurs Abdomen: Soft, non-tender; +hepatosplenomegaly Extremities: No peripheral edema or extremity lymphadenopathy Skin: Normal temperature, turgor and texture; no rash, ulcers or subcutaneous nodules Psych: Appropriate affect, alert and oriented to person, place and time. Neuro: alert and oriented x 3. Moving all extermities Lines: No CVL / PICC - Constitutional Vitals: Vital Signs Temp Pulse Resp BP Pulse Ox 98.4 F 111 H 18 119/83 99 03/18/18 11:35 03/18/18 11:35 03/18/18 11:35 03/18/18 11:35 03/18/18 11:35 Temperature -Last 24 Hours Temperature 98.4 F Temperature 98.8 F Temperature 98.3 F Temperature 99.0 F Temperature 98.3 F - Labs CBC & Chem 7: 03/17/18 06:01 03/12/18 06:28
--- NOTE | 2018-03-18 14:15 | Progress Note ---
Hospitalist Physical - Constitutional Vitals: Temp Pulse Resp BP Pulse Ox 98.4 F 111 H 18 119/83 99 03/18/18 11:35 03/18/18 11:35 03/18/18 11:35 03/18/18 11:35 03/18/18 11:35 General appearance: Present: no acute distress Results - Labs CBC & Chem 7: 03/17/18 06:01 08 06:28 Labs: Laboratory Last Values WBC 2.6 K/mm3 (4.5-11.0) L 03/17/18 06:01 RBC 3.98 M/mm3 (3.65-5.03) 03/17/18 06:01 Hgb 8.8 gm/dl (10.1-14.3) L 03/17/18 06:01 Hct 28.5 % (30.3-42.9) L 03/17/18 06:01 MCV 72 fl (79-97) L 03/17/18 06:01 MCH 22 pg (28-32) L 03/17/18 06:01 MCHC 31 % (30-34) 03/17/18 06:01 RDW 24.6 % (13.2-15.2) H 03/17/18 06:01 Plt Count 336 K/mm3 (140-440) 03/17/18 06:01 Add Manual Diff Complete 03/17/18 06:01 Total Counted 100 03/17/18 06:01 Seg Neuts % (Manual) 72.0 % (40.0-70.0) H 03/17/18 06:01 Band Neutrophils % 0 % 03/17/18 06:01 Lymphocytes % (Manual) 8.0 % (13.4-35.0) L 03/17/18 06:01 Reactive Lymphs % (Man) 3.0 % 03/17/18 06:01 Monocytes % (Manual) 16.0 % (0.0-7.3) H 03/17/18 06:01 Eosinophils % (Manual) 0 % (0.0-4.3) 03/17/18 06:01 Basophils % (Manual) 1.0 % (0.0-1.8) 03/17/18 06:01 Metamyelocytes % 0 % 03/17/18 06:01 Myelocytes % 0 % 03/17/18 06:01 Promyelocytes % 0 % 03/17/18 06:01 Blast Cells % 0 % 03/17/18 06:01 Nucleated RBC % Not Reportable 03/17/18 06:01 Seg Neutrophils # Man 1.9 K/mm3 (1.8-7.7) 03/17/18 06:01 Band Neutrophils # 0.0 K/mm3 03/17/18 06:01 Lymphocytes # (Manual) 0.2 K/mm3 (1.2-5.4) L 03/17/18 06:01 Abs React Lymphs (Man) 0.1 K/mm3 03/17/18 06:01 Monocytes # (Manual) 0.4 K/mm3 (0.0-0.8) 03/17/18 06:01 Eosinophils # (Manual) 0.0 K/mm3 (0.0-0.4) 03/17/18 06:01 Basophils # (Manual) 0.0 K/mm3 (0.0-0.1) 03/17/18 06:01 Metamyelocytes # 0.0 K/mm3 03/17/18 06:01 Myelocytes # 0.0 K/mm3 03/17/18 06:01 Promyelocytes # 0.0 K/mm3 03/17/18 06:01 Blast Cells # 0.0 K/mm3 03/17/18 06:01 WBC Morphology Not Reportable 03/17/18 06:01 Hypersegmented Neuts Not Reportable 03/17/18 06:01 Hyposegmented Neuts Not Reportable 03/17/18 06:01 Hypogranular Neuts Not Reportable 03/17/18 06:01 Smudge Cells Not Reportable 03/17/18 06:01 Toxic Granulation Not Reportable 03/17/18 06:01 Toxic Vacuolation Not Reportable 03/17/18 06:01 Dohle Bodies Not Reportable 03/17/18 06:01 Pelger-Huet Anomaly Not Reportable 03/17/18 06:01 Shonna Rods Not Reportable 03/17/18 06:01 Platelet Estimate Cons 03/17/18 06:01 Clumped Platelets Not Reportable 03/17/18 06:01 Plt Clumps, EDTA Not Reportable 03/17/18 06:01 Large Platelets Few 03/17/18 06:01 Giant Platelets Not Reportable 03/17/18 06:01 Platelet Satelliting Not Reportable 03/17/18 06:01 Plt Morphology Comment Not Reportable 03/17/18 06:01 RBC Morphology Not Reportable 03/17/18 06:01 Dimorphic RBCs Not Reportable 03/17/18 06:01 Polychromasia Not Reportable 03/17/18 06:01 Hypochromasia 1+ 03/17/18 06:01 Poikilocytosis 1+ 03/17/18 06:01 Anisocytosis 2+ 03/17/18 06:01 Microcytosis Not Reportable 03/17/18 06:01 Macrocytosis Not Reportable 03/17/18 06:01 Spherocytes Not Reportable 03/17/18 06:01 Pappenheimer Bodies Not Reportable 03/17/18 06:01 Sickle Cells Not Reportable 03/17/18 06:01 Target Cells Not Reportable 03/17/18 06:01 Tear Drop Cells Not Reportable 03/17/18 06:01 Ovalocytes 1+ 03/17/18 06:01 Helmet Cells Not Reportable 03/17/18 06:01 Mandujano-[place] Bodies Not Reportable 03/17/18 06:01 [place] Rings Not Reportable 03/17/18 06:01 [place] Cells Not Reportable 03/17/18 06:01 Bite Cells Not Reportable 03/17/18 06:01 Crenated Cell Not Reportable 03/17/18 06:01 Elliptocytes Not Reportable 03/17/18 06:01 Acanthocytes (Spur) Not Reportable 03/17/18 06:01 Rouleaux Not Reportable 03/17/18 06:01 Hemoglobin C Crystals Not Reportable 03/17/18 06:01 Schistocytes Not Reportable 03/17/18 06:01 Malaria parasites Not Reportable 03/17/18 06:01 Percent Retic 1.71 % (0.78-2.58) 03/06/18 15:20 Antonino Bodies Not Reportable 03/17/18 06:01 Hem Pathologist Commnt No 03/17/18 06:01 PT 15.8 Sec. (12.2-14.9) H 03/06/18 15:20 INR 1.19 (0.87-1.13) H 08/03/18 15:20 Sodium 136 mmol/L (137-145) L 03/12/18 06:28 Potassium 4.1 mmol/L (3.6-5.0) 03/12/18 06:28 Chloride 102.6 mmol/L (98-107) 03/12/18 06:28 Carbon Dioxide 20 mmol/L (22-30) L 03/12/18 06:28 Anion Gap 18 mmol/L 03/12/18 06:28 BUN 7 mg/dL (7-17) 03/12/18 06:28 Creatinine 0.5 mg/dL (0.7-1.2) L 03/12/18 06:28 Estimated GFR > 60 ml/min 03/12/18 06:28 BUN/Creatinine Ratio 14 % 03/12/18 06:28 Glucose 97 mg/dL (65-100) 03/12/18 06:28 Uric Acid 5.2 mg/dL (3.5-7.6) 03/06/18 02:13 Calcium 7.6 mg/dL (8.4-10.2) L 03/12/18 06:28 Iron 19 ug/dL (37-170) L 03/06/18 15:20 TIBC 302 mcg/dL (250-450) 03/06/18 15:20 % Saturation 6.29 % 03/06/18 15:20 Transferrin 274 mg/dl (192-382) 03/06/18 15:20 Ferritin 100.5 ng/mL (13.0-400.0) 03/06/18 15:20 Total Bilirubin 0.70 mg/dL (0.1-1.2) 03/05/18 21:31 AST 54 units/L (5-40) H 03/05/18 21:31 ALT 25 units/L (7-56) 03/05/18 21:31 Alkaline Phosphatase 396 units/L (35-129) H 03/05/18 21:31 Lactate Dehydrogenase 343 units/L (91-180) H 03/06/18 15:20 Troponin T < 0.010 ng/mL (0.00-0.029) 03/07/18 16:28 C-Reactive Protein 1.70 mg/dL (0.00-1.30) H 03/13/18 10:23 Serum Total Protein 7.4 g/dL (6.1-8.1) 03/06/18 15:20 Total Protein 7.9 g/dL (6.3-8.2) 03/05/18 21:31 Albumin 3.0 g/dL (3.8-4.8) L 03/06/18 15:20 Albumin/Globulin Ratio 0.8 % 03/05/18 21:31 Wqaoz-0-Fovnbqwen 0.4 g/dL (0.2-0.3) H 03/06/18 15:20 Ydrnr-3-Dzlyoqzsr 0.6 g/dL (0.5-0.9) 03/06/18 15:20 Beta Globulins 0.3 g/dL (0.2-0.5) 03/06/18 15:20 Gamma Globulins 2.7 g/dL (0.8-1.7) H 03/06/18 15:20 Abnorm Protein Band 1 see below 03/06/18 15:20 PEP Interpretation see below H 03/06/18 15:20 Angiotensin Convert Enz See scanned report 03/12/18 14:10 Vitamin B12 725.0 pg/mL (211-911) 03/06/18 15:20 Folate > 20 ng/mL (7.3-26.0) 03/06/18 15:20 TSH 1.780 mlU/mL (0.270-4.200) 03/07/18 13:19 Free T4 1.26 ng/dL (0.76-1.46) 03/07/18 13:19 T3 (SHANICE) 102 ng/dL (76-181) 03/07/18 13:19 Vancomycin Trough 21.2 ug/mL (5.0-20.0) H 03/08/18 08:48 Immunofix Electrophor see below 03/06/18 15:20 HUSSEIN Screen Negative (Negative) 03/13/18 10:23 Proteinase 3 (PR3) Ab <1.0 AI (<1.0) 03/13/18 10:23 Myeloperoxidase Ab <1.0 AI (<1.0) 03/13/18 10:23 Complement C3 112 mg/dL (83-193) 03/13/18 10:23 Complement C4 22 mg/dL (15-57) 03/13/18 10:23 CMV DNA PCR log gyroscope technician/mL See scanned report 03/13/18 18:46 Hepatitis A IgM Ab Non-reactive (NonReactive) 03/13/18 18:46 Hep Bs Antigen Non-reactive (Negative) 03/13/18 18:46 Hep B Core IgM Ab Non-reactive (NonReactive) 03/13/18 18:46 Hepatitis C Antibody Non-reactive (NonReactive) 03/13/18 18:46 HIV 1&2 Antibody Rapid Non react (Non React) 03/13/18 10:23 HIV P24 Antigen Non react (Non React) 03/13/18 10:23 Blood Type B POSITIVE 03/10/18 13:28 Antibody Screen Negative 03/10/18 13:28 Crossmatch See Detail 03/10/18 13:28
--- NOTE | 2018-03-18 14:41 | Progress Note ---
Assessment and Plan 33 y/o female with cough, left sided pleural effusion, leukopenia, anemia and some form of granulomatous disease. 1. Continue Prednisone 30mg indefinitely. She will need a script for this. Would just write 10mg tablets and given her 100 pills. Might be easiest. 2. Will need PCP prophylaxis with Bactrim DS 1 tab daily. This will be until she is on a lower dose of steroid and her risk of PCP is decreased 3. From a pulm standpoint, no objection to discharge. Can follow up in our office in 2 weeks. Does need to be walked though to see if she qualifies for home O2. Subjective Date of service: 03/18/18 Principal diagnosis: splenomegaly Interval history: No acute events. Got Prednisone yesterday and today. Feels stable. Wondering when she can go home. Had pleurx placed and states that breathing is somewhat better. Objective Vital Signs - 12hr 03/18/18 03/18/18 05:50 11:35 Temperature 98.8 F 98.4 F Pulse Rate 81 111 H Respiratory 16 18 Rate Blood Pressure 116/75 119/83 O2 Sat by Pulse 96 99 Oximetry Constitutional: no acute distress, alert Eyes: non-icteric ENT: oropharynx moist Neck: supple Effort: normal Ascultation: Right: clear, Left: diminished breath sounds Percussion: Left: dull Cardiovascular: regular rate and rhythm Gastrointestinal: soft Integumentary: rash (areas of discoloration all over face) Extremities: no cyanosis, no edema Neurologic: normal mental status, non-focal exam Psychiatric: mood appropriate CBC and BMP: 03/17/18 06:01 03/12/18 06:28 ABG, PT/INR, D-dimer: PT/INR, D-dimer PT 15.8 Sec. (12.2-14.9) H 03/06/18 15:20 INR 1.19 (0.87-1.13) H 03/06/18 15:20 Abnormal lab findings: Abnormal Labs 03/05/18 03/05/18 03/05/18 21:31 21:31 22:31 WBC 1.9 L* RBC 3.30 L Hgb 6.2 L Hct 21.0 L MCV 64 L MCH 19 L MCHC 29 L RDW 19.6 H Seg Neuts % (Manual) 74.0 H Lymphocytes % (Manual) Monocytes % (Manual) Basophils % (Manual) Seg Neutrophils # Man 1.4 L Lymphocytes # (Manual) 0.4 L PT INR Sodium 133 L Chloride 96.2 L Carbon Dioxide Creatinine 0.5 L Glucose 108 H Calcium Iron AST 54 H Alkaline Phosphatase 396 H Lactate Dehydrogenase C-Reactive Protein Albumin 3.4 L Hwamo-5-Bwcyxeuea Gamma Globulins PEP Interpretation Vancomycin Trough Crossmatch See Detail 03/06/18 03/06/18 03/06/18 02:12 03:20 03:20 WBC 1.4 L* RBC 3.08 L Hgb 5.5 L* Hct 20.5 L MCV 66 L MCH 18 L MCHC 27 L RDW 19.8 H Seg Neuts % (Manual) Lymphocytes % (Manual) Monocytes % (Manual) Basophils % (Manual) Seg Neutrophils # Man 0.9 L Lymphocytes # (Manual) 0.3 L PT INR Sodium Chloride Carbon Dioxide 21 L Creatinine Glucose Calcium 7.7 L Iron AST Alkaline Phosphatase Lactate Dehydrogenase 307 H C-Reactive Protein Albumin Nxftz-6-Xwrkwziup Gamma Globulins PEP Interpretation Vancomycin Trough Crossmatch 03/06/18 03/06/18 03/06/18 12:27 15:20 15:20 WBC 1.6 L* RBC Hgb 7.2 L Hct 25.3 L MCV 69 L MCH 20 L MCHC 28 L RDW 22.1 H Seg Neuts % (Manual) 79.0 H Lymphocytes % (Manual) 11.0 L Monocytes % (Manual) Basophils % (Manual) 2.0 H Seg Neutrophils # Man 1.3 L Lymphocytes # (Manual) 0.2 L PT INR Sodium Chloride Carbon Dioxide Creatinine Glucose Calcium Iron 19 L AST Alkaline Phosphatase Lactate Dehydrogenase 343 H C-Reactive Protein Albumin 3.0 L Uyvzu-0-Zekgypgnh 0.4 H Gamma Globulins 2.7 H PEP Interpretation see below H Vancomycin Trough Crossmatch 03/06/18 03/08/18 03/09/18 15:20 08:48 09:47 WBC 1.6 L* RBC Hgb 7.9 L Hct 27.2 L MCV 69 L MCH 20 L MCHC 29 L RDW 22.8 H Seg Neuts % (Manual) Lymphocytes % (Manual) Monocytes % (Manual) Basophils % (Manual) Seg Neutrophils # Man Lymphocytes # (Manual) PT 15.8 H INR 1.19 H Sodium Chloride Carbon Dioxide Creatinine Glucose Calcium Iron AST Alkaline Phosphatase Lactate Dehydrogenase C-Reactive Protein Albumin Qnngp-5-Xlcqzeuhj Gamma Globulins PEP Interpretation Vancomycin Trough 21.2 H Crossmatch 03/10/18 03/10/18 03/10/18 06:30 06:30 13:28 WBC 1.9 L* RBC 3.58 L Hgb 6.9 L Hct 24.4 L MCV 68 L MCH 19 L MCHC 28 L RDW 23.5 H Seg Neuts % (Manual) 72.0 H Lymphocytes % (Manual) 13.0 L Monocytes % (Manual) 13.0 H Basophils % (Manual) Seg Neutrophils # Man 1.4 L Lymphocytes # (Manual) 0.2 L PT INR Sodium 135 L Chloride Carbon Dioxide 18 L Creatinine 0.5 L Glucose Calcium 7.9 L Iron AST Alkaline Phosphatase Lactate Dehydrogenase C-Reactive Protein Albumin Wepsu-4-Btgiwiclh Gamma Globulins PEP Interpretation Vancomycin Trough Crossmatch See Detail 03/11/18 03/11/18 03/12/18 11:36 11:36 06:28 WBC 1.5 L* 1.8 L* RBC Hgb 8.1 L 8.0 L Hct 28.0 L 27.4 L MCV 72 L 71 L MCH 21 L 21 L MCHC 29 L 29 L RDW 24.2 H 24.8 H Seg Neuts % (Manual) 83.0 H 79.0 H Lymphocytes % (Manual) 8.0 L 12.0 L Monocytes % (Manual) Basophils % (Manual) 2.0 H Seg Neutrophils # Man 1.2 L 1.4 L Lymphocytes # (Manual) 0.1 L 0.2 L PT INR Sodium 135 L Chloride Carbon Dioxide 21 L Creatinine Glucose Calcium 7.7 L Iron AST Alkaline Phosphatase Lactate Dehydrogenase C-Reactive Protein Albumin Kejsz-2-Rughuqiqx Gamma Globulins PEP Interpretation Vancomycin Trough Crossmatch 03/12/18 03/13/18 03/13/18 06:28 05:58 10:23 WBC 2.0 L RBC Hgb 8.0 L Hct 27.5 L MCV 72 L MCH 21 L MCHC 29 L RDW 24.9 H Seg Neuts % (Manual) 72.0 H Lymphocytes % (Manual) Monocytes % (Manual) 10.0 H Basophils % (Manual) Seg Neutrophils # Man 1.4 L Lymphocytes # (Manual) 0.3 L PT INR Sodium 136 L Chloride Carbon Dioxide 20 L Creatinine 0.5 L Glucose Calcium 7.6 L Iron AST Alkaline Phosphatase Lactate Dehydrogenase C-Reactive Protein 1.70 H Albumin Qsnvn-7-Nuuzlmfiv Gamma Globulins PEP Interpretation Vancomycin Trough Crossmatch 03/14/18 03/15/18 03/16/18 09:02 09:52 05:43 WBC 2.0 L 2.0 L 2.3 L RBC 3.57 L Hgb 8.4 L 8.1 L 8.3 L Hct 29.3 L 26.1 L 27.5 L MCV 77 L 73 L 73 L MCH 22 L 23 L 22 L MCHC 29 L RDW 24.8 H 24.6 H 24.4 H Seg Neuts % (Manual) 87.0 H 83.0 H Lymphocytes % (Manual) 6.0 L 7.0 L Monocytes % (Manual) 8.0 H 9.0 H Basophils % (Manual) 2.0 H 3.0 H Seg Neutrophils # Man 1.7 L 1.7 L 1.4 L Lymphocytes # (Manual) 0.1 L 0.1 L 0.5 L PT INR Sodium Chloride Carbon Dioxide Creatinine Glucose Calcium Iron AST Alkaline Phosphatase Lactate Dehydrogenase C-Reactive Protein Albumin Ibpot-5-Iqjhegdxd Gamma Globulins PEP Interpretation Vancomycin Trough Crossmatch 03/17/18 06:01 WBC 2.6 L RBC Hgb 8.8 L Hct 28.5 L MCV 72 L MCH 22 L MCHC RDW 24.6 H Seg Neuts % (Manual) 72.0 H Lymphocytes % (Manual) 8.0 L Monocytes % (Manual) 16.0 H Basophils % (Manual) Seg Neutrophils # Man Lymphocytes # (Manual) 0.2 L PT INR Sodium Chloride Carbon Dioxide Creatinine Glucose Calcium Iron AST Alkaline Phosphatase Lactate Dehydrogenase C-Reactive Protein Albumin Bxtcb-9-Rezlampkh Gamma Globulins PEP Interpretation Vancomycin Trough Crossmatch
--- NOTE | 2018-03-18 15:28 | Discharge Summary ---
Providers - Providers Date of Admission: 03/06/18 03:36 Date of discharge: 03/18/18 Attending physician: MELBA CRAWFORD 03/06/18 06:48 Consult to Physician [CONS] Routine Comment: Consulting Provider: ELIZA KNOX Physician Instructions: Reason For Exam: splenomegly 03/13/18 14:11 Consult to Interventional Radiology [CONS] Routine Consulting Provider: ISHAN CORBIN Reason For Exam: splenic embolization for splenomegaly Place consult to:: dr. corbin Notified:: office Phone number called:: Was contact made?: Yes If yes, spoke with:: luis Time called:: 14:51 03/16/18 13:33 Consult to Interventional Radiology [CONS] Routine Consulting Provider: ISHAN CORBIN Reason For Exam: needs Left pleur-x cath for recurrent left lung ef Place consult to:: dr. corbin Notified:: suze Phone number called:: overhead paged Was contact made?: No Time called:: 14:36 Comment:: waiting for return call 03/16/18 15:37 Consult to Physician [CONS] Routine Comment: Consulting Provider: JANNIE ROD Physician Instructions: Reason For Exam: pl effusion- sarcoid 03/18/18 14:32 Physical Therapy Evaluation and Treat [CONS] Routine Comment: Reason For Exam: generalized weakness Primary care physician: CHIP CRUSHER OPERATOR Hospitalization Condition: Fair Disposition: DC-30 STILL A PATIENT Core Measure Documentation - Palliative Care Palliative Care/ Comfort Measures: Not Applicable Exam - Constitutional Vitals: Temp Pulse Resp BP Pulse Ox 98.4 F 111 H 18 119/83 99 03/18/18 11:35 03/18/18 11:35 03/18/18 11:35 03/18/18 11:35 03/18/18 11:35 Plan Activity: advance as tolerated Diet: low fat, low cholesterol, low salt Special Instructions: home health RN Additional Instructions: 1.Follow up with PCP or [facility] in 1 week. 2.Follow up with Solitario Ortega in 1 week. 3.Follow up with Dr. Nolasco in 1 week. 4.Follow up with Dr. Villagran in 1 week. 5.Home health Nurse. 6.To return 2 weeks for splenectomy Follow up with: RUDDY NOLASCO DO [Staff Physician] - 10 Days PRIMARY CARE, [Primary Care Provider] - 3-5 Days Forms: Accompanied Note Prescriptions: Benzonatate [Tessalon Perles] 100 mg PO Q8HR #30 capsule guaiFENesin [Robitussin] 200 mg PO Q4H PRN #1 bottle PRN Reason: Cough Multivitamin with Iron [Multivitamins with Iron] 1 each PO DAILY #30 tablet oxyCODONE /ACETAMINOPHEN [Percocet 5/325 mg] 1 tab PO Q6H PRN #20 tablet PRN Reason: Pain, Moderate (4-6) predniSONE [Deltasone] 30 mg PO QDAY 30 Days tablet Sulfamethoxazole/Trimethoprim [Bactrim DS TAB] 1 each PO DAILY 30 Days tablet
[2018-03-18 19:21] VITALS: BP 128/93
== END 2018-03-18 18:25 | disposition home health service (06) | DRG 166 ==
LOC: ED 15:56 → IMCU 03-06 03:36 → 3A 03-11 20:23
PROVIDERS: ADMIT Internal Medicine; ATTEND Internal Medicine
PROC: 30233N1 Transfusion of Nonautologous Red Blood Cells into Peripheral Vein, Percutaneous Approach (ICD-10-PCS; 2018-03-06)
PROC: 0QB23ZX Excision of Right Pelvic Bone, Percutaneous Approach, Diagnostic (ICD-10-PCS; 2018-03-09)
PROC: BB4BZZZ Ultrasonography of Pleura (ICD-10-PCS; 2018-03-09)
PROC: 0FB13ZX Excision of Right Lobe Liver, Percutaneous Approach, Diagnostic (ICD-10-PCS; 2018-03-09)
PROC: BF251ZZ Computerized Tomography (CT Scan) of Liver using Low Osmolar Contrast (ICD-10-PCS; 2018-03-09)
PROC: BR2C1ZZ Computerized Tomography (CT Scan) of Pelvis using Low Osmolar Contrast (ICD-10-PCS; 2018-03-09)
PROC: 07DR3ZX Extraction of Iliac Bone Marrow, Percutaneous Approach, Diagnostic (ICD-10-PCS; 2018-03-09)
PROC: 0W9B3ZZ Drainage of Left Pleural Cavity, Percutaneous Approach (ICD-10-PCS; 2018-03-09)
PROC: 3E0234Z Introduction of Serum, Toxoid and Vaccine into Muscle, Percutaneous Approach (ICD-10-PCS; 2018-03-13)
PROC: 0B9L30Z Drainage of Left Lung with Drainage Device, Percutaneous Approach (ICD-10-PCS; principal; 2018-03-17)
PROC: BB13ZZZ Fluoroscopy of Left Lung (ICD-10-PCS; 2018-03-17)
DX: J69.0 Pneumonitis due to inhalation of food and vomit (principal); G92 Toxic encephalopathy; J96.01 Acute respiratory failure with hypoxia; J90 Pleural effusion, not elsewhere classified; D61.818 Other pancytopenia; R65.10 Systemic inflammatory response syndrome (SIRS) of non-infectious origin without acute organ dysfunction; R19.00 Intra-abdominal and pelvic swelling, mass and lump, unspecified site; D64.9 Anemia, unspecified; R16.2 Hepatomegaly with splenomegaly, not elsewhere classified; K75.3 Granulomatous hepatitis, not elsewhere classified; D72.819 Decreased white blood cell count, unspecified; G70.00 Myasthenia gravis without (acute) exacerbation; R59.0 Localized enlarged lymph nodes; Z23 Encounter for immunization; Z82.49 Family history of ischemic heart disease and other diseases of the circulatory system; Z88.8 Allergy status to other drugs, medicaments and biological substances
CPT/HCPCS: 32550; 32555; 36415; 38221; 47000; 71045; 71046; 71260; 74177; 77012; 80048; 80053; 80074; 80202; 82164; 82607; 82728; 82747; 83550; 83615; 84165; 84439; 84443; 84480; 84484; 84550; 85007; 85025; 85027; 85045; 85097; 85610; 86021; 86038; 86140; 86160; 86334; 86665; 86850; 86900; 86901; 86920; 87040; 87102; 87116; 87497; 87806; 88112; 88161; 88305; 88307; 88311; 88312; 88313; 90648; 90732; 90733; 93005; 93010; 94640; 94760; 96361; 96365; C1729; J1200; J2250; J2270; J2405; J2543; J3010; J3370; J7030; J7040; J7050; J7512; P9016; Q0162; Q9967

== ENCOUNTER 2018-03-19 18:42 | Inpatient (IN) | payer OTHER ==
--- NOTE | 2018-03-19 19:24 | Emergency Department Report ---
ED Fever HPI - General Chief Complaint: Fever Stated Complaint: FEVER/ELAVATED HEART RATE Time Seen by Provider: 03/19/18 19:23 Source: patient, family Exam Limitations: no limitations - History of Present Illness Timing/Duration: just prior to arrival Fever Severity/Quality: low grade Fever Therapy CHIEF OPERATOR HYDROFORMER: none Associated Symptoms: abdominal pain, cough ED Review of Systems ROS: Stated complaint: FEVER/ELAVATED HEART RATE Other details as noted in HPI Comment: All other systems reviewed and negative Constitutional: chills, fever Eyes: denies: eye pain ENT: denies: ear pain, throat pain Respiratory: cough. denies: shortness of breath Cardiovascular: chest pain, palpitations Endocrine: no symptoms reported Gastrointestinal: abdominal pain. denies: nausea, vomiting, diarrhea Genitourinary: denies: urgency, dysuria, frequency Musculoskeletal: denies: back pain Skin: denies: rash, lesions Neurological: denies: headache, weakness Psychiatric: denies: anxiety, depression Hematological/Lymphatic: denies: easy bleeding, easy bruising ED Past Medical Hx - Past Medical History Previous Medical History?: Yes Additional medical history: mystenia gravis, sarcoidosis - Surgical History Past Surgical History?: Yes Additional Surgical History: thymus gland removal - Social History Smoking Status: Never Smoker Substance Use Type: None - Medications Home Medications: Home Medications Medication Instructions Recorded Confirmed Last Taken Type Benzonatate [Tessalon Perles] 100 mg PO Q8HR #30 capsule 03/16/18 Unknown Rx Multivitamin with Iron 1 each PO DAILY #30 tablet 03/16/18 Unknown Rx [Multivitamins with Iron] guaiFENesin [Robitussin] 200 mg PO Q4H PRN #1 bottle 03/16/18 Unknown Rx oxyCODONE /ACETAMINOPHEN [Percocet 1 tab PO Q6H PRN #20 tablet 03/16/18 Unknown Rx 5/325 mg] Sulfamethoxazole/Trimethoprim 1 each PO DAILY 30 Days tablet 03/18/18 Unknown Rx [Bactrim DS TAB] predniSONE [Deltasone] 30 mg PO QDAY 30 Days tablet 03/18/18 Unknown Rx ED Physical Exam - General Limitations: No Limitations General appearance: alert, in no apparent distress - Head Head exam: Present: atraumatic, normal inspection - Eye Eye exam: Present: normal appearance, PERRL, EOMI Pupils: Present: normal accommodation - ENT ENT exam: Present: normal exam, normal orophraynx, mucous membranes moist - Neck Neck exam: Present: normal inspection, full ROM. Absent: tenderness - Respiratory Respiratory exam: Present: normal lung sounds bilaterally. Absent: respiratory distress, wheezes, rales, rhonchi, stridor - Cardiovascular Cardiovascular Exam: Present: normal rhythm, tachycardia, normal heart sounds - GI/Abdominal GI/Abdominal exam: Present: soft, tenderness (LUQ), guarding, normal bowel sounds. Absent: distended, rebound, rigid - Extremities Exam Extremities exam: Present: normal inspection, full ROM, normal capillary refill. Absent: tenderness - Back Exam Back exam: Present: normal inspection, full ROM. Absent: tenderness - Neurological Exam Neurological exam: Present: alert, oriented X3, CN II-XII intact - Psychiatric Psychiatric exam: Present: normal affect, normal mood - Skin Skin exam: Present: warm, dry, intact, normal color. Absent: rash ED Course Vital Signs 03/19/18 19:06 Temperature 99.2 F Pulse Rate 135 H Respiratory 19 Rate Blood Pressure 137/98 O2 Sat by Pulse 99 Oximetry - Reevaluation(s) Reevaluation #1: 03/19/18 22:55 I consulted the hospitalist organisation and methods analyst Dr Grover. He will admit patient to the hospital for further evaluation and management. ED Medical Decision Making - Lab Data Result diagrams: 03/19/18 19:16 03/19/18 19:16 - EKG Data -: EKG Interpreted by Me EKG shows normal: sinus rhythm Rate: tachycardia (125) - EKG Data When compared to previous EKG there are: previous EKG unavailable Interpretation: nonspecific ST-T wave mp, LVH, other (No STEMI.) - Radiology Data Radiology results: report reviewed, image reviewed - Medical Decision Making Sepsis. Fever. Critical care attestation.: If time is entered above; I have spent that time in minutes in the direct care of this critically ill patient, excluding procedure time. ED Disposition Clinical Impression: Pleural effusion, Splenomegaly, HCAP (healthcare-associated pneumonia) Pneumonia Qualifiers: Pneumonia type: due to unspecified organism Laterality: right Lung location: unspecified part of lung Qualified Code(s): J18.9 - Pneumonia, unspecified organism Sepsis Qualifiers: Sepsis type: sepsis due to unspecified organism Qualified Code(s): A41.9 - Sepsis, unspecified organism Disposition: DC-09 OP ADMIT IP TO THIS HOSP Is pt being admited?: Yes Does the pt Need Aspirin: No Condition: Stable Time of Disposition: 22:58
[2018-03-19] MEDS ORDERED: TYLENOL PO ONE (19:36)
[2018-03-19 19:46] LABS: Hematocrit 28.1 % (30.3-42.9); Hemoglobin 8.4 gm/dl (10.1-14.3); Mean Corpuscular HGB Conc 30 % (30-34); Mean Corpuscular Volume 72 fl (79-97); Platelet Count 367 K/mm3 (140-440); Red Blood Count 3.92 M/mm3 (3.65-5.03)
[2018-03-19 19:47] LABS: Mean Corpuscular Hemoglobin 22 pg (28-32); Red Cell Distribution Width 25.9 % (13.2-15.2)
[2018-03-19 19:51] LABS: INR 1.08 (0.87-1.13)
[2018-03-19] MEDS ORDERED: ZOSYN/NS 4.5GM/100ML 4.5 GM/100 ML VIAL IV SCH (20:00)
[2018-03-19 20:05] LABS: Alanine Aminotransferase 18 units/L (7-56); Albumin 2.6 g/dL (3.9-5); BUN/Creatinine Ratio 25; Blood Urea Nitrogen 15 mg/dL (7-17); Calcium 8.1 mg/dL (8.4-10.2); Hemolysis Index 14
[2018-03-19 20:21] LABS: Basophils % (Manual) 0 % (0.0-1.8); Eosinophils % (Manual) 0 % (0.0-4.3); Total Cells Counted 100
[2018-03-19 20:22] LABS: Anisocytosis 2+; Hypochromasia 2+; Platelet Estimate Consistent w Auto; Poikilocytosis 1+
[2018-03-19] MEDS ORDERED: NACL 0.9% 1000 ML 1,000 ML ONE (21:55)
--- NOTE | 2018-03-19 22:00 | XRay Report ---
FINAL REPORT PROCEDURE: XR CHEST 1V AP TECHNIQUE: Chest radiograph anteroposterior view. CPT 00461 HISTORY: possible Sepsis COMPARISON: No prior studies are available for comparison. FINDINGS: Heart: Normal. Mediastinum/Vessels: Normal. Lungs/Pleural space: There is interval development of moderate left pleural effusion. There appears to be consolidation of the underlying left lower lung. Right lung and right pleural space are clear.. Bony thorax: No acute osseous abnormality. Life support devices: None. IMPRESSION: Moderate degree left pleural effusion new since the prior study. Underlying left lower lung consolidation suspicious for pneumonia is suspected..
[2018-03-19] MEDS ORDERED: MORPHINE IV ONE (22:37)
[2018-03-19] MEDS ORDERED: ZOFRAN IV ONE (22:38)
--- NOTE | 2018-03-19 22:46 | Cat Scan Report ---
FINAL REPORT PROCEDURE: CT CHEST W CON TECHNIQUE: Computerized axial tomography of the chest was performed during the IV injection of iodinated nonionic contrast. HISTORY: pleural effusion, fever COMPARISON: 03/05/2018 TECHNICAL QUALITY: Satisfactory. FINDINGS: Mild degree infiltrates are identified in the right upper, middle and lower lobes. Right pleural space is clear. A large left pleural effusion is identified with collapse of the left lower lobe. Left upper lobe is free of any infiltrates or mass lesions. There is mild degree of shift of mediastinum to the right. Cardiac size is normal. Hilar structures are within normal limits. An enlarged lymph node is noted in the sub-carinal region measuring 2.1 centimeters in short axis. Aorta is of normal caliber. Thyroid demonstrates 4 millimeter hypodense nodule in the left lobe. Liver demonstrates tiny numerous hypodense nodular lesions scattered throughout the parenchyma. Spleen is grossly enlarged. IMPRESSION: Large left pleural effusion with collapse left lower lobe Mild degree infiltrates right lung Moderate degree sub-carinal lymphadenopathy Splenomegaly Multiple small hypodense nodules identified throughout the liver parenchyma as visualized on the prior study
[2018-03-19] MEDS ORDERED: LEVAQUIN 750MG/150ML 750 MG/150 ML BAG IV ONE (22:55)
--- NOTE | 2018-03-19 22:55 | Cat Scan Report ---
FINAL REPORT PROCEDURE: CT ABDOMEN PELVIS W CON TECHNIQUE: Computerized axial tomography of the abdomen and pelvis was performed after the IV injection of iodinated nonionic contrast. HISTORY: abdominal pain COMPARISON: No prior studies are available for comparison. FINDINGS: Multiple scattered sub centimeter hypodense nodules throughout liver are again noted as seen on the prior study. Spleen is moderately enlarged. Bilateral adrenal glands and bilateral kidneys demonstrate normal enhancement. Aorta is of normal caliber. Moderate degree of free fluid is noted in the peritoneal cavity. There is no free air. Gallbladder is unremarkable. Small bowel loops are within normal limits. Appendix is normal. There is evidence of moderately enlarged lymph nodes in the periaortic and left iliac regions. A left chest tube is in place. Vertebral height is normal. IMPRESSION: Multiple hypodense nodules scattered throughout liver may represent neoplastic nodules versus septic emboli. Moderate degree splenomegaly Mild degree ascites Left iliac and para-aortic lymphadenopathy. Lymphoma may also need to be considered.
[2018-03-19] MEDS ORDERED: NACL 0.9% 1000 ML 1,000 ML IV ONE ×2 (22:59→23:00)
[2018-03-19] MEDS ORDERED: VANCOMYCIN/NS 1 GM/250 ML 1 GM/250 ML BAG IV SCH (23:00)
[2018-03-20] MEDS ORDERED: TYLENOL PO PRN (00:16)
[2018-03-20] MEDS ORDERED: ZOFRAN IV PRN (00:22)
[2018-03-20] MEDS ORDERED: VANCOMYCIN/NS 1 GM/250 ML 1 GM/250 ML BAG IV ONE (00:58)
[2018-03-20] MEDS ORDERED: NACL 0.9% 1000 ML 1,000 ML ONE (00:58)
[2018-03-20] MEDS ORDERED: VANCOMYCIN PHARMACY TO DOSE IV SCH (01:00)
[2018-03-20] MEDS ORDERED: NACL 0.9% 1000 ML 1,000 ML IV SCH (01:00)
[2018-03-20 01:48] LABS: Bilirubin,Urine NEG (Negative); Blood,Urine NEG (Negative); Calcium Oxalate Crystals,Urine 3+; Color,Urine Yellow (Yellow); Mucus,Urine FEW /HPF; Protein,Urine <15 mg/dL mg/dL (Negative); Urobilinogen,Urine < 2.0 mg/dL (<2.0)
[2018-03-20] MEDS: PERCOCET 5/325 PO PRN ×2 (03:16→10:29)
--- NOTE | 2018-03-20 04:50 | History and Physical Report ---
CHIEF COMPLAINT: Fever. Other complaint includes palpitations. HISTORY OF PRESENT ILLNESS: The patient is a 33-year-old female, who was recently discharged from the hospital after being treated for some condition that includes sarcoidosis. The patient developed fever and also palpitations and presented back to the Emergency Room. There is also history of associated cough and abdominal discomfort. There is history of chest discomfort. There is no history of shortness of breath. No history of nausea or vomiting; however, there is history of abdominal pain. There is no history of dizziness. The patient was evaluated and presented for admission. PAST MEDICAL HISTORY: Pertinent for myasthenia gravis and sarcoidosis. PAST SURGICAL HISTORY: Pertinent for thymectomy. FAMILY HISTORY: Noncontributory. SOCIAL HISTORY: The patient does not smoke, does not drink alcohol, and does not use illicit drugs. MEDICATIONS: The patient is on benzonatate 100 mg by mouth every 8 hours, multivitamin with iron 1 by mouth daily, Robitussin 200 mg by mouth every 4 hours, Percocet 5/325 one by mouth every 6 hours as needed for pain, Bactrim Double Strength one by mouth daily, and prednisone 30 mg by mouth daily. ALLERGIES: THE PATIENT IS ALLERGIC TO MAGNESIUM. REVIEW OF SYSTEMS: CONSTITUTIONAL: There is fever, but no chills and no diaphoresis. HEENT: There is no headache or sore throat. CARDIOVASCULAR SYSTEM: There are palpitations and chest discomfort. RESPIRATORY SYSTEM: There is cough with no shortness of breath. GASTROINTESTINAL SYSTEM: There is abdominal pain with no nausea, no vomiting, and no diarrhea or constipation. NEUROLOGICAL SYSTEM: There is no numbness. No dizziness. No altered mental status. MUSCULOSKELETAL SYSTEM: There is no joint pain or swelling. DERMATOLOGICAL SYSTEM: There is no skin rash or itching. GENITOURINARY SYSTEM: There is no dysuria, hematuria, or flank pain. Rest of system review is normal. PHYSICAL EXAMINATION: GENERAL: At the time of exam, the patient was found to be alert and oriented x 3 and not in acute distress. VITAL SIGNS: At the time of presentation shows temperature of 99.8 degrees Fahrenheit, pulse rate of 135, respirations 19, blood pressure 137/98, and O2 sat of 99% on room air. HEENT: Show pupils to be equal, round, and reactive to light and accommodation. Extraocular muscles are intact. NECK: Supple with no JVD or carotid bruit. CARDIOVASCULAR SYSTEM: Show normal first and second heart sounds with no gallops or murmurs. RESPIRATORY SYSTEM: Showed good air entry on the right side of the lung with decreased air entry on the left lung bases with some crackles in both lung bases. GASTROINTESTINAL SYSTEM: Show abdomen to be soft, full, and nontender with no organomegaly or rigidity. NEUROLOGIC: Shows no focal deficits. MUSCULOSKELETAL SYSTEM: Show no joint swelling or tenderness. DERMATOLOGICAL SYSTEM: Show no skin rash. GENITOURINARY: Showing no costovertebral angle tenderness. PERTINENT LABORATORY DATA AND IMAGING STUDIES: The patient had CT of the abdomen and pelvis done. CT of abdomen and pelvis showed multiple lesions in the liver, which is questionable for possible metastatic lesions. Also, the patient had chest CT done that shows left lower lobe collapse with also some consolidation on the left side. The patient also has some opacity in the right lung area. The patient's lab results show CBC with low white count of 3.3, low hemoglobin of 8.1, low hematocrit of 28.1, and low MCV of 72 with CBC differential showing elevated segmented neutrophil of 89. Coagulation studies were unremarkable. Chemistry shows low sodium of 133, low creatinine of 0.6, elevated AST of 44, normal ALT with elevated alkaline phosphatase of 418, and low albumin level of 2.6. The patient's urinalysis shows negative urine leukocyte esterase, negative urine nitrite, elevated urine WBC of 7, and no bacteria was seen. DIAGNOSES: 1. Sepsis. 2. Hospital-acquired pneumonia or healthcare-associated pneumonia bilaterally. 3. Left lower lung atelectasis and left lung effusion. PLAN: The patient will be admitted to telemetry. CARE OF PLAN: 1. The patient will be on IV normal saline at 150 mL an hour. 2. The patient will have pulmonary consult with Dr. Freeman because of left pleural effusion with left lower lobe collapse. 3. The patient will be on Tylenol 650 mg by mouth every 4 hours for fever and headache and will be on heparin 5000 units subcutaneously q. 12 for DVT prophylaxis. 4. The patient will be on IV Zosyn 3.375 grams q. 8 hours. 5. The patient will continue IV vancomycin with pharmacy to dose. 6. The patient's home medications will be applied as shown in the medication reconciliation section. JOB# [id number] OCN/NTS
[2018-03-20 05:45] LABS: Creatine Kinase MB < 1.0 ng/mL (0.0-4.0)
[2018-03-20] MEDS ORDERED: ZOSYN/NS 4.5GM/100ML 4.5 GM/100 ML VIAL IV SCH (06:00)
[2018-03-20] MEDS ORDERED: ZOSYN/NS 3.375GM/50ML 3.375 GM/50 ML BAG IV SCH (06:00)
[2018-03-20] MEDS: TESSALON PERLES PO SCH ×2 (07:00→14:37)
[2018-03-20] MEDS ORDERED: NON-FORMULARY (Multivitamin With Iron [Multivitamins With Iron] 1 EACH) PO SCH (10:00)
[2018-03-20] MEDS ORDERED: DELTASONE PO SCH (10:00)
[2018-03-20] MEDS ORDERED: VANCOMYCIN/NS 1 GM/250 ML 1 GM/250 ML BAG IV SCH (10:00)
[2018-03-20] MEDS ORDERED: HEPARIN SUB-Q SCH (10:00)
[2018-03-20] MEDS ORDERED: THERAGRAN-M Tab PO SCH (10:00)
[2018-03-20] MEDS ORDERED: BACTRIM DS PO SCH (10:00)
[2018-03-20 13:42] VITALS: BP 127/85
--- NOTE | 2018-03-20 14:50 | Event Note ---
Date: 03/20/18 Patient known to me as she was just discharged from the hospital either Friday or Yesterday. Per patient in usual state of health with no worsening of symptoms. Was found to have fever and tachycardia so sent to ED. CT in ED showed left sided effusion with pleurx in place. I see the suspected areas that radiology is concerned about, but given the clinical picture and knowing the patient from before, I do not feel that she has a hospital acquired pneumonia. Clinically she is stable and unchanged. I have asked that she start some incentive troy therapy at home several times daily and staff will give her instruction here. I suggest discharge. Will discuss with IMS.
--- NOTE | 2018-03-20 16:59 | Discharge Summary ---
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 She was just sent home on Friday and now presents to ED for fever evaluation found by visiting Home Health nurse. She has been afebrile here. Dr. Restrepo and I reviewed CT chest unlikely pneumonia but effusion remains with compressive atelectasis. * CT abd/pelvis with IV contrast IMPRESSION: Multiple hypodense nodules scattered throughout liver may represent neoplastic nodules versus septic emboli. Moderate degree splenomegaly Mild degree ascites Left iliac and para- aortic lymphadenopathy. Lymphoma may also need to be considered. * CT chest with contrast IMPRESSION: Large left pleural effusion with collapse left lower lobe Mild degree infiltrates right lung Moderate degree sub-carinal lymphadenopathy. Splenomegaly, Multiple small hypodense nodules identified throughout the liver parenchyma as visualized on the prior study * Bone marrow biospy showed several non-caeseating granulomas -Sarcodosis most likely -Anemia/leukopenia suspected due to malignant process: Hematology/Oncologist following, monitor cbc closely, s/p 1 unit of prbc -Large Left pleural effusion with pleurvac -No Pneumonia, ok to discharge home without abx per Dr. Restrepo -Myasthenia gravis by history in remission Disposition: DC-01 TO HOME OR SELFCARE Time spent for discharge: 32 mintues Core Measure Documentation - Palliative Care Palliative Care/ Comfort Measures: Not Applicable - Core Measures Any of the following diagnoses?: none - VTE Discharge Requirements Deep Vein Thrombosis/Pulmonary Embolism Present on Admission: No Has pt received <5 days of overlap therapy or INR<2.0: No Anticoagulant overlap therapy prescribed at discharge: No Contraindication No Overlap Therapy order at DC: Not Indicated Exam - Constitutional Vitals: Temp Pulse Resp BP Pulse Ox 97.7 F 103 H 18 127/85 99 03/20/18 13:34 03/20/18 13:34 03/20/18 13:34 03/20/18 13:34 03/20/18 13:34 General appearance: Present: no acute distress - EENT Eyes: Present: PERRL, EOM intact - Neck Neck: Present: supple, normal ROM - Respiratory Respiratory effort: normal Respiratory: left: diminished - Cardiovascular Rhythm: regular (tachycardia) - Extremities Extremities: no ischemia, pulses intact Peripheral Pulses: within normal limits - Abdominal General gastrointestinal: Present: soft, non-tender Localized gastrointestinal: mass: RUQ - Integumentary Integumentary: Present: clear, warm - Musculoskeletal Musculoskeletal: strength equal bilaterally - Psychiatric Psychiatric: appropriate mood/affect - Neurologic Neurologic: CNII-XII intact Plan Activity: other (no strenous activity) Diet: low salt Follow up with: PRIMARY CAREMD [Primary Care Provider] - 3-5 Days
== END 2018-03-20 19:30 | disposition home health service (06) | DRG 872 ==
LOC: ED 18:42 → 3A 03-20 00:11
PROVIDERS: ADMIT Internal Medicine; ATTEND Internal Medicine
DX: A41.9 Sepsis, unspecified organism (principal); J90 Pleural effusion, not elsewhere classified; D64.9 Anemia, unspecified; D86.9 Sarcoidosis, unspecified; R16.1 Splenomegaly, not elsewhere classified; L92.8 Other granulomatous disorders of the skin and subcutaneous tissue; Z79.899 Other long term (current) drug therapy
CPT/HCPCS: 36415; 71045; 71260; 74177; 80053; 81001; 82140; 82550; 82553; 82805; 83690; 84484; 84703; 85007; 85025; 85610; 87040; 87086; 93005; 93010; 96374; 96375; J1644; J2270; J2405; J2543; J3370; J7030; J7512; Q9967

== ENCOUNTER 2018-05-13 08:34 | Day surgery (SDC) | payer MEDICAID ==
[~2018-05-13 08:34] MED LIST: ANCEF/STERILE WATER 2 GM/20 ML 2 GM/20 ML SYRINGE IV NR; NACL 0.9% 1000 ML 1,000 ML IV SCH
[2018-05-13] MEDS ORDERED: NACL 0.9% 500 ML IR ONE (09:48)
[2018-05-13] MEDS ORDERED: XYLOCAINE 2% INFILTRATI ONE (09:48)
[2018-05-13] MEDS ORDERED: XYLOCAINE 1%/ EPI 1:100,000 INFILTRATI ONE (09:49)
[2018-05-13 09:57] LABS: Mean Corpuscular HGB Conc 29 % (30-34); Mean Corpuscular Volume 76 fl (79-97); Platelet Count 661 K/mm3 (140-440); Red Blood Count 4.03 M/mm3 (3.65-5.03)
[2018-05-13 10:00] LABS: Hematocrit 30.5 % (30.3-42.9); Hemoglobin 8.9 gm/dl (10.1-14.3); Mean Corpuscular Hemoglobin 22 pg (28-32)
[2018-05-13 10:01] LABS: Red Cell Distribution Width 25.8 % (13.2-15.2)
[2018-05-13 10:09] LABS: BUN/Creatinine Ratio 35; Blood Urea Nitrogen 14 mg/dL (7-17); Calcium 9.6 mg/dL (8.4-10.2); Hemolysis Index 3
[2018-05-13 10:10] LABS: INR 0.95 (0.87-1.13); Partial Thromboplastin Time 27.7 Sec. (24.2-36.6)
--- NOTE | 2018-05-13 10:21 | Short Stay Summary ---
Short Stay Documentation Date of service: 05/13/18 - History Principal diagnosis: left pleural effusion resolved - catheter no longer needed Past Medical History: other (myasthenia gravis) Past Surgical History: Other (splenectomy) Social history: no significant social history - Allergies and Medications Current Medications: Allergies magnesium Allergy (Verified 03/05/18 16:16) Unknown Home Medications Medication Instructions Recorded Confirmed Last Taken Type Multivitamin with Iron 1 each PO DAILY #30 tablet 03/16/18 05/13/18 05/12/18 Rx [Multivitamins with Iron] 1 tab Prednisone [predniSONE 10 mg 30 mg PO QDAY 04/08/18 05/13/18 05/12/18 History (6-Day Pack, 21 Tabs)] 30mg Ketorolac [Toradol] 10 mg PO Q6H PRN #30 tablet 04/10/18 05/13/18 05/12/18 Rx 10mg Active Medications Cefazolin Sodium (Ancef/Sterile Water 2 Gm/20 Ml) 2 gm in 20 mls @ 80 mls/hr IV PREOP NR; Protocol Stop: 05/13/18 23:59 Sodium Chloride (Nacl 0.9% 1000 Ml) 1,000 mls @ 42 mls/hr IV DIRECT THAI - Physical exam General appearance: no acute distress Integumentary: no rash HEENT: Atraumatic, PERRLA Lungs: Normal air movement Breasts: deferred Heart: Regular rate Gastrointestinal: normal Female Genitourinary: deferred Rectal Exam: deferred Extremities: no ischemia Neurological: Normal gait, Normal speech - Brief post op/procedure progress note Date of procedure: 05/13/18 Pre-op diagnosis: pleural effusion, Pleurx catheter no longer needed Post-op diagnosis: same Procedure: Pleurx catheter removal Anesthesia: local Surgeon: ISHAN CORBIN Estimated blood loss: none Pathology: none Condition: stable - Disposition Condition at discharge: Good Disposition: DC-01 TO HOME OR SELFCARE Short Stay Discharge Plan Activity: advance as tolerated Weight Bearing Status: Weight Bear as Tolerated Diet: regular Wound: keep clean and dry, per your surgeon's advice Follow up with: PRIMARY CARE, [Primary Care Provider] - 7 Days
[2018-05-13] MEDS ORDERED: SUBLIMAZE ONE (10:24)
[2018-05-13] MEDS ORDERED: VERSED ONE (10:24)
[2018-05-13 10:32] LABS: Basophils % (Manual) 0 % (0.0-1.8); Eosinophils % (Manual) 0 % (0.0-4.3); Total Cells Counted 100
[2018-05-13 10:33] LABS: Anisocytosis 2+; Hypochromasia 1+; Large Platelets Few; Platelet Estimate Consistent w Auto
--- NOTE | 2018-05-13 10:33 | Operative Report ---
Operative Report Operative Report: Exam: Tunnel chest tube removal Clinical indication: Patient with a history of myasthenia gravis and recurrent left pleural effusion resolved status post splenectomy Date: 05/13/2018 Procedure: Following an explanation of the risks, benefits and alternatives; written informed consent was obtained. The patient's right radiographic suite and placed in spine position on the examination table. Initial fluoroscopic images demonstrated appropriate positioning of the patient's indwelling tunneled chest tube. The patient's left chest wall and indwelling tube were prepped and draped in the usual sterile fashion. 2% lidocaine was used for anesthesia at the catheter exit site and along contract. The catheter Was dissected free and the indwelling catheter removed intact. A postprocedure fluoroscopic image was obtained to document removal of all the catheter. Hemostasis was achieved using manual compression at the catheter exit site and a sterile compression dressing was applied. The patient tolerated the procedure well. There were no immediate post procedure complications. Conscious sedation was performed under the guidance of radiologic nursing. Continuous cardiopulmonary monitoring was utilized. Impression: Left tunneled chest tube removal
--- NOTE | 2018-05-13 11:43 | XRay Report ---
AP CHEST: HISTORY: Left chest tube removal The left chest tube has been removed since 04/08/18 exam. There is complete evacuation of the left pleural collection. The lungs are clear. Normal heart and mediastinal structures. No pneumothorax. IMPRESSION: Unremarkable AP chest.
[2018-05-13 11:57] VITALS: BP 116/77
== END 2018-05-13 12:20 | disposition home or self-care (01) ==
LOC: CATHLABREC 08:34
PROVIDERS: ATTEND Radiology Diagnostic Radiology
DX: J90 Pleural effusion, not elsewhere classified (principal); G70.00 Myasthenia gravis without (acute) exacerbation; Z79.899 Other long term (current) drug therapy; Z79.01 Long term (current) use of anticoagulants; Z88.8 Allergy status to other drugs, medicaments and biological substances; Z87.891 Personal history of nicotine dependence; Z98.890 Other specified postprocedural states
CPT/HCPCS: 32552; 36415; 71045; 80048; 85007; 85025; 85610; 85730; J2250; J3010; J7030

== ENCOUNTER 2018-10-27 09:17 | Emergency (ER) | payer SELFPAY ==
[2018-10-27 10:15] LABS: BUN/Creatinine Ratio 10; Blood Urea Nitrogen 5 mg/dL (7-17); Hemolysis Index 0
[2018-10-27] MEDS ORDERED: MOTRIN PO ONE (10:17)
[2018-10-27] MEDS ORDERED: DELTASONE PO ONE (10:17)
--- NOTE | 2018-10-27 10:21 | Emergency Department Report ---
ED Chest Pain HPI - General Chief Complaint: Chest Pain Stated Complaint: CHEST PAIN,DIZZY,WEAKNESS Time Seen by Provider: 10/27/18 10:16 Source: patient Mode of arrival: Ambulatory Limitations: No Limitations - History of Present Illness Initial Comments: Sandi is a 33 yo female with hx of myasthenia gravis, sarcoidosis, anemia and pneumonia who presents with chest pain, generalized malaise. She just feels weird. Recently had pulmonary function tests last Friday. Started on albuterol. Now just does not feel well. Denies fever. +intermittent mild left sharp pain. Non productive cough. She does not have a primary care physician. She does not have health insurance. MD Complaint: chest pain -: Gradual, days(s) Onset: during exertion Pain Location: left chest Pain Radiation: none Severity: moderate Severity scale (0 -10): 8 Quality: sharp Consistency: intermittent Improves With: nothing Worsens With: nothing re: dyspnea Other Symptoms: cough - Related Data Home Medications Medication Instructions Recorded Confirmed Last Taken RX: Prednisone [predniSONE 10 mg 30 mg PO QDAY 04/08/18 05/13/18 05/12/18 (6-Day Pack, 21 Tabs)] 30mg Previous Rx's Medication Instructions Recorded Last Taken Type RX: Multivitamin with Iron 1 each PO DAILY #30 tablet 03/16/18 05/12/18 Rx [Multivitamins with Iron] 1 tab Ketorolac [Toradol] 10 mg PO Q6H PRN #30 tablet 04/10/18 05/12/18 Rx 10mg Prednisone [predniSONE 10 mg 10 mg PO .TAPER #1 tab.ds.pk 10/27/18 Unknown Rx (6-Day Pack, 21 Tabs)] Allergies Allergy/AdvReac Type Severity Reaction Status Date / Time magnesium Allergy Unknown Verified 03/05/18 16:16 Heart Score - HEART Score History: Slightly suspicious EKG: Normal Age: < 45 Risk factors: 1-2 risk factors Troponin: < normal limit HEART Score: 1 ED Review of Systems ROS: Stated complaint: CHEST PAIN,DIZZY,WEAKNESS Other details as noted in HPI Comment: All other systems reviewed and negative Constitutional: malaise Respiratory: shortness of breath Cardiovascular: chest pain ED Past Medical Hx - Past Medical History Previous Medical History?: Yes Additional medical history: mystenia gravis, sarcoidosis - Surgical History Past Surgical History?: Yes Additional Surgical History: thymus gland removal - Social History Smoking Status: Never Smoker Substance Use Type: None - Medications Home Medications: Home Medications Medication Instructions Recorded Confirmed Last Taken Type RX: Multivitamin with Iron 1 each PO DAILY #30 tablet 03/16/18 05/13/18 05/12/18 Rx [Multivitamins with Iron] 1 tab RX: Prednisone [predniSONE 10 mg 30 mg PO QDAY 04/08/18 05/13/18 05/12/18 History (6-Day Pack, 21 Tabs)] 30mg Ketorolac [Toradol] 10 mg PO Q6H PRN #30 tablet 04/10/18 05/13/18 05/12/18 Rx 10mg Prednisone [predniSONE 10 mg 10 mg PO .TAPER #1 tab.ds.pk 10/27/18 Unknown Rx (6-Day Pack, 21 Tabs)] ED Physical Exam - General Limitations: No Limitations General appearance: alert, in no apparent distress - Head Head exam: Present: atraumatic, normocephalic - Eye Eye exam: Present: normal appearance - ENT ENT exam: Present: mucous membranes moist - Neck Neck exam: Present: normal inspection, full ROM - Respiratory Respiratory exam: Present: normal lung sounds bilaterally. Absent: respiratory distress, wheezes, rales, rhonchi - Cardiovascular Cardiovascular Exam: Present: regular rate, normal rhythm, normal heart sounds. Absent: systolic murmur, diastolic murmur, rubs, gallop - GI/Abdominal GI/Abdominal exam: Present: soft, normal bowel sounds. Absent: distended, tenderness, guarding, rebound - Extremities Exam Extremities exam: Present: normal inspection - Back Exam Back exam: Present: normal inspection - Neurological Exam Neurological exam: Present: alert, oriented X3 - Psychiatric Psychiatric exam: Present: normal affect, normal mood - Skin Skin exam: Present: warm, dry, intact, normal color. Absent: rash ED Course Vital Signs 10/27/18 09:27 Temperature 99 F Pulse Rate 109 H Respiratory 20 Rate Blood Pressure 120/81 O2 Sat by Pulse 98 Oximetry ED Medical Decision Making - Lab Data Result diagrams: 10/27/18 10:55 10/27/18 09:44 - Medical Decision Making Unfortunately Ms. Quintero has myasthenia gravis and severe sarcoidosis with extensive complications including pleural effusion requiring thoracostomy she also has a history of sepsis and pneumonia. She does not have the ability to work due to severe chronic illness. Consequently she has been evaluated by disability physician who recently arr anged pulmonary function tests. She does not have current primary care or health care insurance. I do feel that her symptoms of malaise and chest pain is related to sarcoidosis. Her anemia is at baseline compared to previous labs. No evidence of pulmonary embolism or pneumonia on CT scan. Findings of significant esophageal wall and hilar adenopathy seen on CT angios of the chest. She has multiple pulmonary nodules seen on CT of the chest. The radiology report which I provided to her in paper form. I recommended that sends the report to her new disability physician. I have prescribed prednisone taper. She stated that steroids has helped her in the past. Critical care attestation.: If time is entered above; I have spent that time in minutes in the direct care of this critically ill patient, excluding procedure time. ED Disposition Clinical Impression: Chest pain, Malaise, Anemia, Myasthenia gravis, Sarcoidosis Disposition: TO HOME OR SELFCARE Is pt being admited?: No Does the pt Need Aspirin: No Condition: Stable Instructions: Chest Pain (ED), Sarcoidosis (ED), Anemia (ED) Prescriptions: Prednisone [predniSONE 10 mg (6-Day Pack, 21 Tabs)] 10 mg PO .TAPER #1 tab.ds.pk Referrals: FERNANDA LIPSCOMB MD [Primary Care Provider] - 3-5 Days
--- NOTE | 2018-10-27 10:28 | XRay Report ---
ROUTINE CHEST, TWO VIEWS: HISTORY: chest pain. Sternotomy wires indicate previous thoracic surgery, correlate with history. The trachea, heart, mediastinal contour, lung rick and bony thorax are unremarkable. IMPRESSION: Unremarkable chest x-ray. No change since 05/13/18.
[2018-10-27 11:12] LABS: Hematocrit 26.6 % (30.3-42.9); Hemoglobin 7.9 gm/dl (10.1-14.3); Mean Corpuscular HGB Conc 30 % (30-34); Platelet Count 785 K/mm3 (140-440); Red Blood Count 4.12 M/mm3 (3.65-5.03); Red Cell Distribution Width 19.4 % (13.2-15.2)
[2018-10-27 11:15] LABS: Mean Corpuscular Hemoglobin 19 pg (28-32); Mean Corpuscular Volume 65 fl (79-97)
[2018-10-27 12:08] LABS: Band Neutrophils # (Manual) 0.9 K/mm3; Total Cells Counted 100
[2018-10-27 12:09] LABS: Anisocytosis 1+
[2018-10-27 12:10] LABS: Burr Cells Few
[2018-10-27 12:11] LABS: Hypochromasia 2+
[2018-10-27 12:12] LABS: Platelet Estimate Consistent w Auto
--- NOTE | 2018-10-27 13:50 | Cat Scan Report ---
PROCEDURE: CT ANGIO CHEST TECHNIQUE: CT examination of the chest after IV contrast. Multiplanar angiographic image post processing. HISTORY: chest pain COMPARISONS: Chest CT March 19, 2018 and portable chest radiograph 05/13/2018 FINDINGS: Normal cardiac size without pericardial effusion. Intact normal caliber thoracic aorta. Nonspecific mural thickening in the distal esophagus. Nonspecific soft tissue prominence in the subcarinal region may reflect adenopathy. The visualized pulmonary arteries are diffusely patent bilaterally. There is no filling defect to sug gest PE. Spleen not visualized in the imaged portion of the upper abdomen. It may be surgically absent. Prior median sternotomy. No acute fracture or dislocation. No pneumothorax or pleural effusion. Nonspecific slight prominence of interstitial markings in the anterior right lung apex, lateral right lower lobe, anterolateral left lower lobe. Nonspecific multifocal groundglass and solid appearing pulmonary nodules are present in both upper lo bes and both lower lobes. IMPRESSION: Nonspecific mural thickening in the distal esophagus may be edema, inflammation, or esophagitis. Cons ider also reflux disease. Differential includes neoplastic infiltration Ill-defined soft tissue tissue prominence in the subcarinal region may reflect adenopathy Multifocal pulmonary nodules may be scarring, inflammation, or infection. Differential includes neopl astic etiology Scattered clustered interstitial prominence bilaterally may be scarring. Differential includes inflam matory or infectious etiology No CT evidence of embolic disease This document is electronically signed by Marv Yousif MD., October 27 2018 01:47:36 PM ET
[2018-10-27 14:22] VITALS: BP 122/78
== END 2018-10-27 14:16 | disposition home or self-care (01) ==
LOC: ED 09:17
DX: G70.00 Myasthenia gravis without (acute) exacerbation (principal); D86.9 Sarcoidosis, unspecified; D64.9 Anemia, unspecified; Z88.8 Allergy status to other drugs, medicaments and biological substances
CPT/HCPCS: 36415; 71046; 71275; 80048; 84484; 84702; 85007; 85025; 93005; 93010; 99285; J7512; Q9967

== ENCOUNTER 2018-12-23 08:55 | Emergency (ER) | payer MEDICAID ==
[2018-12-23 09:27] LABS: Hematocrit 28.1 % (30.3-42.9); Hemoglobin 8.3 gm/dl (10.1-14.3); Mean Corpuscular Volume 68 fl (79-97); Red Blood Count 4.15 M/mm3 (3.65-5.03)
[2018-12-23 09:28] LABS: Mean Corpuscular HGB Conc 30 % (30-34); Platelet Count 741 K/mm3 (140-440); Red Cell Distribution Width 21.7 % (13.2-15.2)
[2018-12-23 09:41] LABS: Alanine Aminotransferase 55 units/L (7-56); Albumin 3.4 g/dL (3.9-5); BUN/Creatinine Ratio 13; Blood Urea Nitrogen 8 mg/dL (7-17); Calcium 8.3 mg/dL (8.4-10.2); Hemolysis Index 0
[2018-12-23 10:09] LABS: Bacteria,Urine 1+ /HPF (Negative); Bilirubin,Urine NEG (Negative); Blood,Urine NEG (Negative); Color,Urine Amber (Yellow); Mucus,Urine FEW /HPF; Protein,Urine <15 mg/dL mg/dL (Negative)
[2018-12-23] MEDS ORDERED: NACL 0.9% 1000 ML 1,000 ML IV ONE (10:54)
[2018-12-23 10:59] LABS: Anisocytosis 2+; Hypochromasia 3+; Poikilocytosis 2+; Target Cells 2+; Total Cells Counted 100
[2018-12-23 11:00] LABS: Ovalocytes Few; Platelet Estimate Consistent w Auto; Tear Drop Cells Rare
--- NOTE | 2018-12-23 11:07 | Emergency Department Report ---
ED Abdominal Pain HPI - General Chief Complaint: Abdominal Pain Stated Complaint: RECTUM PAIN/BLEEDING/STOMACH PAIN Time Seen by Provider: 12/23/18 10:49 Source: patient Mode of arrival: Ambulatory Limitations: No Limitations - History of Present Illness Initial Comments: 33-year-old female presents to the emergency room for abdominal pain for the pain of blood with BM. Patient reports the blood with BM was on the tissue when she wiped. 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 Patient denies any vaginal discharge no vaginal bleeding. Lower abdominal pain starting yesterday sharp consistent worse with movement better with nothing. Patient put that she took 2 Midol's yesterday with no help. Last menstrual period was 11/23/2018. MD Complaint: abdominal pain Location: suprapubic Quality: sharp Consistency: constant Improves With: nothing Worsens With: nothing Associated Symptoms: denies: nausea, vomiting, diarrhea - Related Data Home Medications Medication Instructions Recorded Confirmed Last Taken Prednisone [predniSONE 10 mg 30 mg PO QDAY 04/08/18 05/13/18 05/12/18 (6-Day Pack, 21 Tabs)] 30mg Previous Rx's Medication Instructions Recorded Last Taken Type Multivitamin with Iron 1 each PO DAILY #30 tablet 03/16/18 05/12/18 Rx [Multivitamins with Iron] 1 tab Prednisone [predniSONE 10 mg 10 mg PO .TAPER #1 tab.ds.pk 10/27/18 Unknown Rx (6-Day Pack, 21 Tabs)] Ketorolac [Toradol] 10 mg PO Q6H PRN #15 tablet 12/23/18 Unknown Rx Nitrofurantoin [place]/M-Cryst 100 mg PO Q12HR #14 capsule 12/23/18 Unknown Rx [Macrobid CAP] Allergies Allergy/AdvReac Type Severity Reaction Status Date / Time magnesium Allergy Unknown Verified 12/23/18 08:57 ED Review of Systems ROS: Stated complaint: RECTUM PAIN/BLEEDING/STOMACH PAIN Other details as noted in HPI Constitutional: denies: chills, fever Eyes: denies: eye pain, eye discharge, vision change ENT: denies: ear pain, throat pain Respiratory: denies: cough, shortness of breath, wheezing Cardiovascular: denies: chest pain, palpitations Endocrine: no symptoms reported Gastrointestinal: abdominal pain, hematochezia (times one on toilet paper). denies: nausea, vomiting, diarrhea, constipation Genitourinary: denies: urgency, dysuria, discharge Skin: denies: rash, lesions Neurological: denies: headache, weakness, paresthesias Psychiatric: denies: anxiety, depression ED Past Medical Hx - Past Medical History Additional medical history: mystenia gravis, sarcoidosis - Surgical History Additional Surgical History: thymus gland removal, spleenectomy - Social History Smoking Status: Never Smoker Substance Use Type: None - Medications Home Medications: Home Medications Medication Instructions Recorded Confirmed Last Taken Type Multivitamin with Iron 1 each PO DAILY #30 tablet 03/16/18 05/13/18 05/12/18 Rx [Multivitamins with Iron] 1 tab Prednisone [predniSONE 10 mg 30 mg PO QDAY 04/08/18 05/13/18 05/12/18 History (6-Day Pack, 21 Tabs)] 30mg Prednisone [predniSONE 10 mg 10 mg PO .TAPER #1 tab.ds.pk 10/27/18 Unknown Rx (6-Day Pack, 21 Tabs)] Ketorolac [Toradol] 10 mg PO Q6H PRN #15 tablet 12/23/18 Unknown Rx Nitrofurantoin [place]/M-Cryst 100 mg PO Q12HR #14 capsule 12/23/18 Unknown Rx [Macrobid CAP] ED Physical Exam - General Limitations: No Limitations General appearance: alert, in no apparent distress - Head Head exam: Present: atraumatic, normocephalic - Eye Eye exam: Present: normal appearance - ENT ENT exam: Present: mucous membranes moist - Neck Neck exam: Present: normal inspection - Respiratory Respiratory exam: Present: normal lung sounds bilaterally. Absent: respiratory distress - Cardiovascular Cardiovascular Exam: Present: regular rate, normal rhythm. Absent: systolic murmur, diastolic murmur, rubs, gallop - GI/Abdominal GI/Abdominal exam: Present: soft, tenderness (supra pubic). Absent: distended - Extremities Exam Extremities exam: Present: normal inspection - Back Exam Back exam: Present: normal inspection - Neurological Exam Neurological exam: Present: alert, oriented X3 - Psychiatric Psychiatric exam: Present: normal affect, normal mood - Skin Skin exam: Present: warm, dry, intact, normal color. Absent: rash ED Course Vital Signs 12/23/18 12/23/18 08:57 11:52 Temperature 99.1 F Pulse Rate 127 H Respiratory 18 15 Rate Blood Pressure 126/82 O2 Sat by Pulse 98 Oximetry ED Medical Decision Making - Lab Data Result diagrams: 12/23/18 09:06 12/23/18 09:06 - Radiology Data Radiology results: report reviewed Patient: WILLIAN WRIGHT MR#: [id number] : 1985 Acct:[id number] Age/Sex: 33 / F ADM Date: 12/23/18 Loc: ED Attending Dr: Ordering Physician: JEREMIAH CURRY Date of Service: 12/23/18 Procedure(s): CT abdomen pelvis w con Accession Number(s): [id number] cc: JEREMIAH CURRY CT abdomen and pelvis with contrast: Abdominal pain. History of myasthenia gravis and sarcoidosis. Following IV administration of contrast transverse images obtained from the lower chest to the ischium with coronal and sagittal reformatted images. Comparison is made to a prior exam in March 2018. The visualized lungs are clear. The liver is enlarged with diffuse inhomogeneous patchy suggesting tiny cystic changes throughout. 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 There are thickened areas of soft tissue density surrounding the structures in the epigastrium and extending into the liver hilum and gallbladder fossa. The gallbladder otherwise appears unremarkable. The adrenal glands and kidneys appear normal. The bowel is unopacified with no gross abnormality identified. The appendix is felt to be identified and unremarkable. There is no thickening in the mesentery. Images through the pelvis demonstrates a small amount of pelvic fluid. There is a right adnexal cyst most likely related to the ovary measuring 4.1 cm in size. The uterus is present. The bony structures are unremarkable. When compared to her prior examination in 2018 the liver appears unchanged. A large multicystic mass in the left abdomen however has resolved as has a large left pleural effusion which contained a percutaneous drain at that time. There is less pelvic fluid on the current exam. Impression: 1. Diffusely enlarged and abnormal liver pattern stable since March 2018. 2. Nonspecific thickened epigastric tissue less evident than seen on prior exam and 2018. 3. Nonspecific small volume of free pelvic fluid. 4. Right pelvic cyst most likely ovarian in origin. Transcribed By: LOWELL Dictated By: SALEEM NUGENT MD Electronically Authenticated By: SALEEM NUGENT MD Signed Date/Time: 12/23/18 120 DD/ 1157 TD/TT: 12/23/18 1209 Critical Care Time: Yes (30) Critical care time in (mins) excluding proc time.: 30 (Spoke with regarding patient ) Critical care attestation.: If time is entered above; I have spent that time in minutes in the direct care of this critically ill patient, excluding procedure time. ED Disposition Clinical Impression: UTI (urinary tract infection) Qualifiers: Urinary tract infection type: acute cystitis Disposition: TO HOME OR SELFCARE Is pt being admited?: No Condition: Stable Instructions: Abdominal Pain (ED), Urinary Tract Infection in Women (ED) Additional Instructions: Treatment antibiotics as prescribed. Pain medication as needed follow-up to primary care provider if his symptoms persist or gets worse. Prescriptions: Nitrofurantoin [place]/M-Cryst [Macrobid CAP] 100 mg PO Q12HR #14 capsule Ketorolac [Toradol] 10 mg PO Q6H PRN #15 tablet PRN Reason: Pain Referrals: STEVEN PENA MD [Primary Care Provider] - 3-5 Days Forms: Work/School Release Form(ED)
--- NOTE | 2018-12-23 12:30 | Cat Scan Report ---
CT abdomen and pelvis with contrast: Abdominal pain. History of myasthenia gravis and sarcoidosis. Following IV administration of contrast transverse images obtained from the lower chest to the ischium with coronal and sagittal reformatted images. Comparison is made to a prior exam in March 2018. The visualized lungs are clear. The liver is enlarged with diffuse inhomogeneous patchy suggesting tiny cystic changes throughout. 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 There are thickened areas of soft tissue density surrounding the structures in the epigastrium and extending into the liver hilum and gallbladder fossa. The gallbladder otherwise appears unremarkable. The adrenal glands and kidneys appear normal. The bowel is unopacified with no gross abnormality identified. The appendix is felt to be identified and unremarkable. There is no thickening in the mesentery. Images through the pelvis demonstrates a small amount of pelvic fluid. There is a right adnexal cyst most likely related to the ovary measuring 4.1 cm in size. The uterus is present. The bony structures are unremarkable. When compared to her prior examination in 2018 the liver appears unchanged. A large multicystic mass in the left abdomen however has resolved as has a large left pleural effusion which contained a percutaneous drain at that time. There is less pelvic fluid on the current exam. Impression: 1. Diffusely enlarged and abnormal liver pattern stable since March 2018. 2. Nonspecific thickened epigastric tissue less evident than seen on prior exam and 2018. 3. Nonspecific small volume of free pelvic fluid. 4. Right pelvic cyst most likely ovarian in origin.
[2018-12-23] MEDS ORDERED: IBUPROFEN PO ONE (13:06)
[2018-12-23 13:27] VITALS: BP 112/76
== END 2018-12-23 13:27 | disposition home or self-care (01) ==
LOC: ED 08:55
DX: N30.00 Acute cystitis without hematuria (principal)
CPT/HCPCS: 36415; 74177; 80053; 81001; 83690; 84703; 85007; 85025; 99284; J7030; Q9967

== ENCOUNTER 2021-10-03 07:10 | Emergency (ER) | payer MEDICAID ==
[2021-10-03 07:33] VITALS: BP 133/97
--- NOTE | 2021-10-03 07:50 | Emergency Department Report ---
Chief Complaint: Dental/Oral Stated Complaint: TOOTHACHE TOLD TO COME BY DENTIST Time Seen by Provider: 10/03/21 07:49 - HPI History of Present Illness: Here with dental pain She saw dentist yesterday They started amox They can not do her extraction because of her MG and sarcoidosis So they told her the ER would do it She was educated on oral surgeons - ROS Review of Systems: dental pain - Exam Vital Signs: Vital Signs 10/03/21 07:29 Temperature 98.6 F Pulse Rate 102 H Respiratory 16 Rate Blood Pressure 133/97 [Left] O2 Sat by Pulse 99 Oximetry Physical Exam: nad vss no trismus no ludwigs no abscess MSE screening note: Focused history and physical exam performed. Due to findings the following was ordered: referred to [facility] number on her insurance card to find oral surgeon to help her ED Disposition for MSE Condition: Stable
== END 2021-10-03 07:50 | disposition left against medical advice (07) ==
LOC: ED 07:10
DX: K08.89 Other specified disorders of teeth and supporting structures (principal)
CPT/HCPCS: 99281